=== PATIENT | male | born 1945 | race Caucasian/White ===

== ENCOUNTER 2019-04-11 12:15 | Outpatient (RCR) | payer MEDICARE, SELFPAY ==
[2019-03-08 13:32] LABS: INR 2.8
[2019-04-11 12:47] LABS: INR 2.4; Prothrombin Time 24.9 Seconds (9.64-11.0)
== END 2019-06-06 23:59 | disposition home or self-care (01) ==
LOC: CHSLAB 12:15
DX: I48.91 Unspecified atrial fibrillation (principal)
CPT/HCPCS: 36415; 85610

== ENCOUNTER 2019-09-18 13:45 | Outpatient (RCR) | payer MEDICARE, SELFPAY ==
[2019-08-04 13:01] LABS: INR 2.4; Prothrombin Time 24.5 Seconds (9.64-11.0)
[2019-09-18 14:10] LABS: INR 3.3; Prothrombin Time 32.4 Seconds (9.64-11.0)
== END 2019-11-02 23:59 | disposition home or self-care (01) ==
LOC: CHSLAB 13:45
PROVIDERS: PCP Internal Medicine; Visit Provider Internal Medicine
DX: I48.91 Unspecified atrial fibrillation (principal)
CPT/HCPCS: 36415; 85610

== ENCOUNTER 2019-10-06 09:03 | Outpatient (CLI) | payer MEDICARE, SELFPAY ==
[2019-10-06 09:22] LABS: Basophils Absolute Auto 0.04 K/mm3 (0.00-0.10); Basophils Percent Auto 0.6 % (0.0-1.0); Eosinophils Absolute Auto 0.15 K/mm3 (0.02-0.50); Eosinophils Percent Auto 2.1 % (1.0-6.0); Hematocrit 44.6 % (37.0-46.0); Hemoglobin 15.2 g/dL (12.4-15.3); Immature Granulocyte Absolute 0.02 K/mm3 (0.00-0.00); Immature Granulocyte Percent A 0.3 % (0.0-0.0); Immature Platelet Fraction Pct 6.5 % (1.0-7.0); Lymphocytes Absolute Auto 1.54 K/mm3 (1.10-4.50); Lymphocytes Percent Auto 21.9 % (18.0-42.0); Mean Corpuscular HGB Conc 34.1 g/dL (32.0-36.0); Mean Corpuscular Hemoglobin 33.9 pg (27.0-31.0); Mean Corpuscular Volume 99.3 fL (78.0-102.0); Mean Platelet Volume 11.7 fl (8.7-11.0); Monocytes Absolute Auto 0.65 K/mm3 (0.10-0.90); Monocytes Percent Auto 9.2 % (2.0-11.0); Neutrophils Absolute Auto 4.6 K/mm3 (1.7-7.2); Neutrophils Percent Auto 65.9 % (50.0-70.0); Platelet Count Result 148 K/mm3 (150-420); Red Blood Count 4.49 M/mm3 (4.70-6.10); Red Cell Distribution Width 12.2 % (11.6-14.4)
[2019-10-06 09:31] LABS: INR 2.4; Prothrombin Time 23.8 Seconds (9.64-11.0)
[2019-10-06 10:39] LABS: Alanine Aminotransferase 26 U/L (16-63); Albumin Level 3.7 g/dL (3.4-5.0); Alkaline Phosphatase 99 U/L (46-116); Anion Gap 12.2 mmol/L (7-16); Aspartate Amino Transferase 23 U/L (15-37); Bilirubin,Total 0.8 mg/dL (0.00-1.00); Blood Urea Nitrogen 15 mg/dL (7-18); Calcium 8.6 mg/dL (8.5-10.1); Carbon Dioxide 28 mmol/L (21-32); Chloride 107 mmol/L (98-108); Cholesterol 138 mg/dL (0-200); Estimated Glomerular Filt Rate > 60; Glucose 118 mg/dL (70-99); HDL Direct 50 mg/dL (40-60); LDL Cholesterol Calculated 72 mg/dL (<130); Osmolality Calculated 297 mOsm/kg (285-295); Potassium 4.2 mmol/L (3.5-5.1); Sodium 143 mmol/L (136-145); Thyroid Stimulating Hormone 1.86 uIU/mL (0.36-3.74); Triglycerides 78 mg/dL (0-150)
== END 2019-10-06 09:04 | disposition home or self-care (01) ==
PROVIDERS: PCP Internal Medicine; Visit Provider Internal Medicine
DX: I48.91 Unspecified atrial fibrillation (principal); E78.49 Other hyperlipidemia; R73.03 Prediabetes
CPT/HCPCS: 36415; 80053; 80061; 83036; 84443; 85025; 85055; 85610

== ENCOUNTER 2020-01-15 13:41 | Outpatient (RCR) | payer MEDICARE, SELFPAY ==
[2019-11-15 13:40] LABS: INR 2.6; Prothrombin Time 25.7 Seconds (9.64-11.0)
[2019-12-14 13:52] LABS: INR 2.8; Prothrombin Time 27.8 Seconds (9.64-11.0)
[2020-01-15 14:06] LABS: INR 2.3
== END 2020-02-13 23:59 | disposition home or self-care (01) ==
LOC: CHSLAB 13:41
PROVIDERS: PCP Internal Medicine; Visit Provider Internal Medicine
DX: I48.20 Chronic atrial fibrillation, unspecified (principal)
CPT/HCPCS: 36415; 85610

== ENCOUNTER 2020-04-09 10:42 | Outpatient (CLI) | payer MEDICARE, SELFPAY ==
[2020-04-09 11:00] LABS: Basophils Absolute Auto 0.03 K/mm3 (0.00-0.10); Basophils Percent Auto 0.4 % (0.0-1.0); Eosinophils Absolute Auto 0.22 K/mm3 (0.02-0.50); Eosinophils Percent Auto 3.2 % (1.0-6.0); Hematocrit 43.6 % (37.0-46.0); Hemoglobin 14.6 g/dL (12.4-15.3); Immature Granulocyte Absolute 0.01 K/mm3 (0.00-0.00); Immature Granulocyte Percent A 0.1 % (0.0-0.0); Lymphocytes Absolute Auto 1.66 K/mm3 (1.10-4.50); Lymphocytes Percent Auto 24.4 % (18.0-42.0); Mean Corpuscular HGB Conc 33.5 g/dL (32.0-36.0); Mean Corpuscular Hemoglobin 33.1 pg (27.0-31.0); Mean Corpuscular Volume 98.9 fL (78.0-102.0); Mean Platelet Volume 11.1 fl (8.7-11.0); Monocytes Absolute Auto 0.58 K/mm3 (0.10-0.90); Monocytes Percent Auto 8.5 % (2.0-11.0); Neutrophils Absolute Auto 4.3 K/mm3 (1.7-7.2); Neutrophils Percent Auto 63.4 % (50.0-70.0); Platelet Count Result 143 K/mm3 (150-420); Red Blood Count 4.41 M/mm3 (4.70-6.10); Red Cell Distribution Width 12.1 % (11.6-14.4); White Blood Count 6.8 K/mm3 (4.8-10.8)
[2020-04-09 11:13] LABS: Prothrombin Time 21.4 Seconds (9.50-12.10)
[2020-04-09 11:37] LABS: Hemoglobin A1C 5.6 % (<5.7)
[2020-04-09 12:42] LABS: Alanine Aminotransferase 23 U/L (16-63); Albumin Level 3.8 g/dL (3.4-5.0); Alkaline Phosphatase 99 U/L (46-116); Anion Gap 10 mmol/L (8-16); Aspartate Amino Transferase 16 U/L (15-37); Bilirubin,Total 0.9 mg/dL (0.00-1.00); Blood Urea Nitrogen 18 mg/dL (7-18); Calcium 9.2 mg/dL (8.5-10.1); Carbon Dioxide 24 mmol/L (21-32); Chloride 105 mmol/L (98-108); Cholesterol 150 mg/dL (0-200); Estimated Glomerular Filt Rate > 60; Glucose 119 mg/dL (70-99); HDL Direct 54 mg/dL (40-60); LDL Cholesterol Calculated 79 mg/dL (<130); Osmolality Calculated 290 mOsm/kg (285-295); Potassium 4.1 mmol/L (3.5-5.1); Prostate Specific Antigen 1.4 ng/mL (< OR = 4.0); Sodium 139 mmol/L (136-145); Thyroid Stimulating Hormone 3.18 uIU/mL (0.36-3.74); Total Protein 7.1 g/dL (6.4-8.2); Triglycerides 83 mg/dL (0-150)
== END 2020-04-09 10:43 | disposition home or self-care (01) ==
LOC: CHSLAB 10:44
PROVIDERS: PCP Internal Medicine; Visit Provider Internal Medicine
DX: I48.20 Chronic atrial fibrillation, unspecified (principal); E78.49 Other hyperlipidemia; R73.03 Prediabetes; Z12.5 Encounter for screening for malignant neoplasm of prostate
CPT/HCPCS: 36415; 80053; 80061; 83036; 84153; 84443; 85025; 85610; G0103

== ENCOUNTER 2020-05-21 13:20 | Outpatient (RCR) | payer MEDICARE, SELFPAY ==
[2020-03-07 14:04] LABS: INR 2.5; Prothrombin Time 26.6 Seconds (9.50-12.10)
[2020-05-21 13:45] LABS: Prothrombin Time 20.9 Seconds (9.50-12.10)
== END 2020-06-05 23:59 | disposition home or self-care (01) ==
LOC: CHSLAB 13:20
PROVIDERS: PCP Internal Medicine; Visit Provider Internal Medicine
DX: I48.20 Chronic atrial fibrillation, unspecified (principal)
CPT/HCPCS: 36415; 85610

== ENCOUNTER 2020-09-13 09:46 | Outpatient (RCR) | payer MEDICARE, SELFPAY ==
[2020-06-25 12:23] LABS: INR 2.4; Prothrombin Time 24.7 Seconds (9.50-12.10)
[2020-07-31 13:40] LABS: INR 2.4; Prothrombin Time 24.8 Seconds (9.50-12.10)
[2020-09-13 10:16] LABS: INR 2.2; Prothrombin Time 22.4 Seconds (9.50-12.10)
== END 2020-09-23 23:59 | disposition home or self-care (01) ==
LOC: CHSLAB 09:46
PROVIDERS: PCP Internal Medicine; Visit Provider Internal Medicine
DX: I48.20 Chronic atrial fibrillation, unspecified (principal)
CPT/HCPCS: 36415; 85610

== ENCOUNTER 2020-10-08 10:00 | Outpatient (CLI) | payer MEDICARE, SELFPAY ==
[2020-10-08 10:17] LABS: Basophils Absolute Auto 0.05 K/mm3 (0.00-0.10); Basophils Percent Auto 0.7 % (0.0-1.0); Eosinophils Percent Auto 2.9 % (1.0-6.0); Hematocrit 44.9 % (37.0-46.0); Hemoglobin 15.1 g/dL (12.4-15.3); Immature Granulocyte Absolute 0.02 K/mm3 (0.00-0.00); Immature Granulocyte Percent A 0.3 % (0.0-0.0); Immature Platelet Fraction Pct 6.5 % (1.0-7.0); Lymphocytes Percent Auto 23.6 % (18.0-42.0); Mean Corpuscular HGB Conc 33.6 g/dL (32.0-36.0); Mean Corpuscular Hemoglobin 32.9 pg (27.0-31.0); Mean Corpuscular Volume 97.8 fL (78.0-102.0); Mean Platelet Volume 11.4 fl (8.7-11.0); Monocytes Absolute Auto 0.51 K/mm3 (0.10-0.90); Monocytes Percent Auto 7.5 % (2.0-11.0); Neutrophils Absolute Auto 4.4 K/mm3 (1.7-7.2); Platelet Count Result 146 K/mm3 (150-420); Red Blood Count 4.59 M/mm3 (4.70-6.10); Red Cell Distribution Width 12.4 % (11.6-14.4); White Blood Count 6.8 K/mm3 (4.8-10.8)
[2020-10-08 10:28] LABS: INR 3.1; Prothrombin Time 31.5 Seconds (9.50-12.10)
[2020-10-08 12:15] LABS: Alanine Aminotransferase 28 U/L (16-63); Albumin Level 3.8 g/dL (3.4-5.0); Alkaline Phosphatase 101 U/L (46-116); Anion Gap 11 mmol/L (8-16); Aspartate Amino Transferase 19 U/L (15-37); Bilirubin,Total 0.9 mg/dL (0.00-1.00); Blood Urea Nitrogen 17 mg/dL (7-18); Calcium 8.8 mg/dL (8.5-10.1); Carbon Dioxide 26 mmol/L (21-32); Chloride 107 mmol/L (98-108); Cholesterol 142 mg/dL (0-200); Estimated Glomerular Filt Rate > 60; Glucose 124 mg/dL (70-99); HDL Direct 50 mg/dL (40-60); LDL Cholesterol Calculated 71 mg/dL (<130); Osmolality Calculated 300 mOsm/kg (285-295); Potassium 4.3 mmol/L (3.5-5.1); Sodium 144 mmol/L (136-145); Thyroid Stimulating Hormone 0.88 uIU/mL (0.36-3.74); Total Protein 6.9 g/dL (6.4-8.2); Triglycerides 106 mg/dL (0-150); Vitamin B12 479 pg/mL (193-986)
== END 2020-10-08 10:01 | disposition home or self-care (01) ==
LOC: CHSLAB 10:02
PROVIDERS: PCP Internal Medicine; Visit Provider Internal Medicine
DX: I48.20 Chronic atrial fibrillation, unspecified (principal); E78.49 Other hyperlipidemia; E03.8 Other specified hypothyroidism
CPT/HCPCS: 36415; 80053; 80061; 82607; 84443; 85025; 85055; 85610

== ENCOUNTER 2021-01-21 13:32 | Outpatient (RCR) | payer MEDICARE, SELFPAY ==
[2020-11-08 13:39] LABS: INR 1.8
[2020-11-27 12:19] LABS: INR 2.9; Prothrombin Time 29.5 Seconds (9.50-12.10)
[2021-01-21 13:56] LABS: INR 2.2; Prothrombin Time 22.4 Seconds (9.50-12.10)
== END 2021-02-06 23:59 | disposition home or self-care (01) ==
LOC: CHSLAB 13:32
PROVIDERS: PCP Internal Medicine; Visit Provider Internal Medicine
DX: I48.20 Chronic atrial fibrillation, unspecified (principal)
CPT/HCPCS: 36415; 85610

== ENCOUNTER 2021-03-06 10:38 | Outpatient (RCR) | payer MEDICARE, SELFPAY ==
[2021-03-06 11:04] LABS: INR 2.9; Prothrombin Time 29.4 Seconds (9.50-12.10)
== END 2021-06-04 23:59 | disposition home or self-care (01) ==
LOC: CHSLAB 10:38
PROVIDERS: PCP Internal Medicine; Visit Provider Internal Medicine
DX: I48.20 Chronic atrial fibrillation, unspecified (principal)
CPT/HCPCS: 36415; 85610

== ENCOUNTER 2021-04-24 23:37 | Emergency (ER) | payer MEDICARE, SELFPAY ==
--- NOTE | ~2021-04-24 | CT_ITS ---
EXAMINATION: CT brain wo con EXAM DATE: 04/25/2021 02:37 INDICATION: Fall. Head Injury On Coumadin. TECHNIQUE: Spiral CT of the head was performed without contrast. Axial, coronal and sagittal images were reviewed. The dose-length product (DLP) for this examination was 756.67 mGy-cm. The exposure w as tailored according to patient size, and iterative reconstruction (ASIR) was used as additional dos e reduction technique. There is no prior study for comparison. FINDINGS: There is no acute intraparenchymal hemorrhage. No evidence of intraparenchymal brain mass lesion. No evidence of acute infarction. Please note that initial head CT has limited sensitivity f or small or acute infarctions. There is mild periventricular and subcortical hypodensity, nonspecific but probably related to small vessel ischemic disease. There is moderate prominence of the sulci a nd ventricles related to cerebral atrophy. There is intracranial carotid arteriosclerosis. There a re no extra-axial collections. There is no mass effect or midline shift. The orbits are unremarkabl e. Small to moderate-sized left posterior scalp swelling. The visualized sinuses and mastoid air fely ls are well aerated. IMPRESSION: 1. No acute intracranial findings. 2. Chronic age related findings. 3. Left posterior scalp swelling. Reviewed, dictated and finalized at location A. CH CHECKER
--- NOTE | ~2021-04-24 | CT_ITS ---
EXAMINATION: CT chest abdomen pelvis wo con EXAM DATE: 04/25/2021 02:38 INDICATION: back and left side chest wall pain s/pfall stairs. TECHNIQUE: Spiral CT of the chest, abdomen and pelvis was performed without contrast. Axial, galdamez l and sagittal images chest, abdomen and pelvis were reviewed. Coronal maximum intensity pixel image s of chest reviewed. The dose-length product (DLP) for this examination was 1943.41 mGy-cm. The exp osure was tailored according to patient size (auto mA exposure control), and iterative reconstruction (ASIR) was used as additional dose reduction technique. There is no prior study for comparison. FINDINGS: BONES: Patient has diffuse idiopathic skeletal hyperostosis, fused mid and lower thoracic spine. Ther e is fracture line through the T9 anterior enthesopathy and vertebral body. This extends toward the p osterior cortex although no discrete fracture line identified through this. Consider this unstable ty pe injury given patient's fused spine. Small paraspinal hematoma. T9 may have sizable hemangioma with in it. Possible acute left 7th rib fracture laterally. There is severe central canal stenosis at L2-3 from posterior disc osteophyte complex and facet arthropathy. Partially fused sacroiliac joints. No pelvic fracture. There are no osteoblastic or osteolytic lesions identified. CHEST: The lungs are clear. There are no pleural or pericardial effusions. Tracheobronchial tree is patent. There is no mediastinal, hilar or axillary lymphadenopathy. There is no pneumothorax. Heart normal in size. There is mild coronary arterial calcification, arterial sclerosis. ABDOMEN PELVIS: The liver, spleen, adrenal glands and pancreas are unremarkable. Gallbladder is unre markable. No biliary obstruction. There is 2.5 mm left inferior calyceal stone. No ureteral stones or hydronephrosis. 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 The prostate is unremarkable. T he bladder is unremarkable. There is no retroperitoneal or pelvic lymphadenopathy. There are left inguinal region surgical clips. There is moderate-sized left inguinal hernia containing fat and tenti ng the bladder toward at. There are no findings to suggest appendicitis. There is mild scattered colonic diverticulosis. There is no adjacent inflammatory change to suggest diverticulitis. The stomach and small bowel are unrema rkable. There is expected amount of colonic stool. No free intraperitoneal gas. IMPRESSION: 1. DISH, fused middle and lower thoracic spine with T9 vertebral body fracture extending toward the posterior cortex, middle column. Unstable type injury; recommend neurosurgical consult. 2. Possible acute left 7th rib fracture. 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 4. Mild colonic diverticulosis. Reviewed, dictated and finalized at location A. ERCIAL CRABBER IMPRESSION: 1. DISH, fused middle and lower thoracic spine with T9 vertebral body fracture extending toward the posterior cortex, middle column. Unstable type injury; re commend neurosurgical consult. 2. Possible acute left 7th rib fracture. 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 4. Mild colonic diverticulosis.
--- NOTE | ~2021-04-24 | XR_ITS ---
EXAMINATION: XR knee RT 3V DATE: 04/25/2021 02:42 INDICATION: Right knee pain. Fall. TECHNIQUE: 3 views of right knee were obtained. COMPARISON: None. FINDINGS: Bone alignment is normal. No fracture. There is mild tricompartmental osteoarthritis charac terized by tiny osteophytes. No joint space narrowing. There is a small knee joint effusion. IMPRESSION: 1. Mild right knee osteoarthritis. 2. Small right knee joint effusion. Reviewed, dictated and finalized at location A. BUCKER
--- NOTE | ~2021-04-24 | CT_ITS ---
EXAMINATION: CT cervical spine wo con EXAM DATE: 04/25/2021 02:38 INDICATION: Fall. Neck Pain. TECHNIQUE: Spiral CT of the cervical spine was performed without contrast. Axial images were reviewe d. Coronal and sagittal reformatted images cervical spine were also reviewed. The dose-length produc t (DLP) for this examination was 626.57 mGy-cm. The exposure was tailored according to patient size (auto mA exposure control), and iterative reconstruction (ASIR) was used as additional dose reduction technique. There is no prior study for comparison. FINDINGS: There is no evidence of acute cervical fracture. The odontoid process is intact. Pre-dens space is normal. Prevertebral soft tissue is normal. There are no soft tissue abnormalities identi fied. There is no disc space widening or traumatic vertebral body subluxation suspected. Mild to mo derate cervical disc disease. Advanced right-sided cervical facet arthropathy. A detailed level by guerrero bhat evaluation of spondylosis can be added as addendum if requested. IMPRESSION: No acute cervical fracture. Reviewed, dictated and finalized at location A. NG FISHER IMPRESSION: No acute cervical fracture.
[2021-04-24 23:44] VITALS: BP 154/81; PULSE 98; RESP 18; TEMP 36.1; O2SAT 100
[2021-04-25 01:40] VITALS: BP 153/96; PULSE 88; RESP 18; O2SAT 99
--- NOTE | 2021-04-25 03:13 | ED.GENADULT ---
HPI - General Adult General Chief complaint: Fall Stated complaint: fall down 2 stairs, right knee pain, head pain Time Seen by Provider: 04/25/21 01:50 History of Present Illness HPI narrative: Patient is a 76-year-old gentleman who presents the emergency department with chief complaint of fall. Patient reports that he is on Coumadin and was walking down the steps and missed the last 2 steps fell struck his head and also twisted his knee. Patient reports that he had swelling in the dorsum of his knee that then moved to the left the patient reports that he has pain in the left portion of his chest and the back also reports to a contusion of the back of his scalp. The patient came to the emergency department because he was concerned since he is on anticoagulation. The patient reports that he has no change in his mental status no focal neurological deficit Related Data Allergies Allergy/AdvReac Type Severity Reaction Status Date / Time shellfish derived Allergy Anaphylactic Verified 04/25/21 01:41 Shock Review of Systems Review of Systems: A 10 system review of systems was completed on the patient and is negative except for what is stated in the HPI. Nursing and ancillary documentation was reviewed. PMFSH Comments History of atrial fibrillation Exam Narrative: GENERAL: Well-appearing, well-nourished, and in no acute distress. HEAD: Normocephalic, there is a contusion in the occipital region of the scalp. EYES: PERRLA and EOMI. ENT: Nares clear, no rhinorrhea or epistaxis. Mucous membranes moist. NECK: Supple. CHEST: Clear to auscultation. No respiratory distress. HEART: Regular rate and rhythm. No murmur heard. Normal peripheral pulses. ABDOMEN: Soft, nontender, nondistended, normal active bowel sounds. EXTREMITIES: Normal range of motion. No edema. There is swelling on the medial aspect of the right knee SKIN: Warm, dry, no rash. NEURO: No focal deficits. Alert and oriented x3. PSYCH: Normal mood and affect. Course Course Emergency Course: Plain film x-rays of the right knee showed no evidence of fracture Vital Signs Vital signs: Vital Signs Temperature 36.1 C L 04/24/21 23:44 Pulse Rate 98 04/24/21 23:44 Respiratory Rate 18 04/24/21 23:44 Blood Pressure 154/81 H 04/24/21 23:44 Pulse Oximetry 100 04/24/21 23:44 Temperature 36.1 C L 04/24/21 23:44 Pulse Rate 62 04/25/21 03:26 Respiratory Rate 18 04/25/21 03:26 Blood Pressure 144/98 H 04/25/21 03:26 Pulse Oximetry 98 04/25/21 03:26 Medical Decision Making Vital Signs Vital Signs: Vital Signs Temperature 36.1 C L 04/24/21 23:44 Pulse Rate 98 04/24/21 23:44 Respiratory Rate 18 04/24/21 23:44 Blood Pressure 154/81 H 04/24/21 23:44 Pulse Oximetry 100 04/24/21 23:44 Temperature 36.1 C L 04/24/21 23:44 Pulse Rate 62 04/25/21 03:26 Respiratory Rate 18 04/25/21 03:26 Blood Pressure 144/98 H 04/25/21 03:26 Pulse Oximetry 98 04/25/21 03:26 Discharge Plan Discharge Clinical Impression: Closed T9 spinal fracture, Injury of knee, right, Head injury, Contusion of scalp Patient Disposition: Acute Care Hospital Condition: Stable Follow-up/Referrals: Doug,Arsh Ames MD [Primary Care Provider] - Time of Disposition: 03:38
[2021-04-25 03:26] VITALS: BP 144/98; PULSE 62; RESP 18; O2SAT 98
[2021-04-25] MEDS: MORPHINE SULFATE (*CRX) 4 MG/ML INJ IV PUSH ×2 (03:33→08:34)
[2021-04-25] MEDS: ONDANSETRON INJ 4 MG/2 ML VIAL IV PUSH (03:33)
[2021-04-25 03:55] LABS: Basophils Percent Auto 0.2 % (0.2-1.2); Eosinophils Percent Auto 0.1 % (0-4.4); Hematocrit 41.4 % (42.0-52.0); Hemoglobin 13.9 g/dL (14.0-18.0); Immature Granulocyte Absolute 0.06 K/mm3 (0.00-0.031); Immature Granulocyte Percent A 0.5 % (0-0.5); Immature Platelet Fraction Pct 8.7 % (0.9-11.2); Lymphocytes Percent Auto 5.6 % (18.3-44.2); Mean Corpuscular HGB Conc 33.6 g/dl (32-36); Mean Corpuscular Hemoglobin 33.6 pg (26-34); Mean Platelet Volume 11.5 fl (7.4-10.4); Monocytes Absolute Auto 1.4 K/mm3 (0.1-0.6); Monocytes Percent Auto 11.4 % (2.6-8.5); Neutrophils Absolute Auto 10.2 K/mm3 (1.3-6.7); Neutrophils Percent Auto 82.2 % (45.5-73.1); Platelet Count Result 126 k/mm3 (150-375); Red Blood Count 4.14 M/mm3 (4.6-6.20); Red Cell Distribution Width 12.7 % (11.5-14.5); White Blood Count 12.4 K/mm3 (4.5-10.0)
[2021-04-25 04:00] LABS: INR 2.8
[2021-04-25 04:01] LABS: Partial Thromboplastin Time 31.7 SECONDS (22.3-36.8)
[2021-04-25 04:07] LABS: Alanine Aminotransferase 27 U/L (4-50); Alkaline Phosphatase 97 U/L (38-126); Anion Gap 7 mmol/L (8-16); Aspartate Amino Transferase 33 U/L (17-59); Bilirubin,Total 0.8 mg/dL (0.2-1.3); Blood Urea Nitrogen 21 mg/dL (9-20); Carbon Dioxide 24 mmol/L (22-30); Chloride 108 mmol/L (98-107); Estimated CRCL calculation 78 ml/min; Estimated Glomerular Filt Rate > 60; Glucose 140 mg/dL (65-110); Potassium 3.9 mmol/L (3.4-5.0); Sodium 139 mmol/L (137-145)
--- NOTE | 2021-04-25 04:09 | PC.NURSE ---
Nurse to nurse report called to [facility]) - spoke to Iris TIRADO.
[2021-04-25 04:35] VITALS: BP 105/78; PULSE 91; RESP 17; O2SAT 95
[2021-04-25 05:30] VITALS: BP 115/77; PULSE 93; RESP 18; O2SAT 96
[2021-04-25 06:54] VITALS: BP 114/79; PULSE 76; RESP 14; O2SAT 94
--- NOTE | 2021-04-25 08:31 | PC.NURSE ---
john has arrived and is aware that pt is going to [facility]
[2021-04-25 08:45] VITALS: BP 118/79; PULSE 86; RESP 16; O2SAT 98
== END 2021-04-25 08:45 | disposition short-term general hospital (02) ==
PROVIDERS: Emergency Provider Emergency Medicine; PCP Internal Medicine
DX: S22.079A Unspecified fracture of T9-T10 vertebra, initial encounter for closed fracture (principal); S89.91XA Unspecified injury of right lower leg, initial encounter; S00.03XA Contusion of scalp, initial encounter; I48.91 Unspecified atrial fibrillation; W10.9XXA Fall (on) (from) unspecified stairs and steps, initial encounter; Z79.01 Long term (current) use of anticoagulants
CPT/HCPCS: 36415; 70450; 71250; 72125; 73562; 74176; 80053; 85025; 85055; 85610; 85730; 96374; 96375; 96376; 99285; J2270; J2405

== ENCOUNTER 2021-05-07 18:18 | Inpatient (IN) | payer MEDICARE, SELFPAY ==
[2021-05-07 18:57] VITALS: BP 128/89; PULSE 90; RESP 18; TEMP 36.3; O2SAT 95
[2021-05-07 19:28] VITALS: BMI 32.6
--- NOTE | 2021-05-07 20:12 | ADMGEN ---
This patient, Yang Young, was admitted to 2nd Floor Room 205-2. Patient oriented to hospital policies and general routines including ID bracelet, bed and alarms, visiting hours, pain management, procedures, bathroom and other care routines, personal items, smoking policy, room service/diet, and visiting hours. Information on how to activate the Rapid Response Team has been discussed. Patient are encouraged to report perceived risks to care and to ask questions if they do not understand what they are told or what they should do.
[2021-05-07] MEDS: QUEtiapine FUMARATE 25 MG TABLET PO (21:36)
[2021-05-07] MEDS: SENNOSIDES 8.6 MG TABLET PO (21:36)
[2021-05-07] MEDS: DOCUSATE SODIUM 100 MG CAPSULE PO (21:36)
[2021-05-07] MEDS: MELATONIN 5 MG TABLET PO (21:36)
[2021-05-07] MEDS: ENOXAPARIN 30 MG/0.3 ML SYRINGE SUB-Q (21:37)
[2021-05-08] VITALS: BP 126/86; PULSE 90; RESP 18; TEMP 36.3; O2SAT 98
[2021-05-08] MEDS: ACETAMINOPHEN 325 MG TABLET PO (00:26)
[2021-05-08 05:18] LABS: Mean Corpuscular HGB Conc 32.4 g/dL (32.0-36.0); Mean Corpuscular Hemoglobin 33.5 pg (27.0-31.0); Mean Corpuscular Volume 103.4 fL (78.0-102.0); Mean Platelet Volume 10.3 fl (8.7-11.0); Platelet Count Result 303 K/mm3 (150-420); Red Blood Count 3.58 M/mm3 (4.70-6.10); Red Cell Distribution Width 13.2 % (11.6-14.4)
[2021-05-08 05:37] LABS: Alanine Aminotransferase 52 U/L (16-63); Albumin Level 2.7 g/dL (3.4-5.0); Alkaline Phosphatase 123 U/L (46-116); Anion Gap 9 mmol/L (8-16); Aspartate Amino Transferase 28 U/L (15-37); Bilirubin,Total 1.2 mg/dL (0.00-1.00); Blood Urea Nitrogen 9 mg/dL (7-18); Calcium 8.4 mg/dL (8.5-10.1); Carbon Dioxide 28 mmol/L (21-32); Chloride 101 mmol/L (98-108); Estimated CRCL calculation 80 ml/min; Estimated Glomerular Filt Rate > 60; Glucose 110 mg/dL (70-99); Magnesium 2.2 mg/dL (1.8-2.4); Osmolality Calculated 285 mOsm/kg (285-295); Potassium 4.1 mmol/L (3.5-5.1); Sodium 138 mmol/L (136-145)
[2021-05-08] MEDS: LEVOTHYROXINE SODIUM 100 MCG, LEVOTHYROXINE SODIUM 50 MCG 150 MCG PO (05:44)
[2021-05-08 07:49] LABS: Glucose Point of Care 98 mg/dl (65-105)
[2021-05-08 08:00] VITALS: BP 132/78; PULSE 102; RESP 20; TEMP 36.2; O2SAT 94
[2021-05-08] MEDS: ENOXAPARIN 30 MG/0.3 ML SYRINGE SUB-Q ×2 (08:31→20:40)
[2021-05-08] MEDS: DOCUSATE SODIUM 100 MG CAPSULE PO ×2 (08:31→20:40)
[2021-05-08] MEDS: MULTIVITAMINS THERAPEUTIC TAB (*BKC) 1 TABLET PO (08:31)
[2021-05-08 08:32] VITALS: PULSE 102
[2021-05-08] MEDS: FINASTERIDE 5 MG TABLET PO (08:32)
[2021-05-08] MEDS: METOPROLOL TARTRATE 50 MG TAB PO ×3 (08:32→17:25)
[2021-05-08] MEDS: metFORMIN HCL 500 MG TABLET PO (08:33)
[2021-05-08] MEDS: SIMVASTATIN 10 MG TABLET 40 MG PO (09:27)
[2021-05-08] MEDS: polyethylene glycoL 3350 17 GM POWD.PACK PO ×2 (09:27→17:26)
[2021-05-08] MEDS: CYCLOBENZAPRINE HCL 10 MG TABLET PO ×3 (09:29→17:26)
--- NOTE | 2021-05-08 11:03 | PM.IMHP ---
H&P: HPI History of Present Illness Date/Time: 05/08/21 11:03 this is a 76-year-old male who presented to [facility] emergency trauma department from [facility] after a fall down the stairs at home. Patient has a past medical history of A. fib, HLD, hypothyroidism, and bph. Patient missed 2 steps and fell and struck his head and twisted his knee imaging indicated a unstable T9 fracture CT of the head was negative .patient admitted in swing bed for rehabilitation due to decreased balance decreased mobility in severe limited function endurant and/or mobility. The patient denies SOB, CP, palpitation, extremity numbness, lightheadedness, dizziness, constipation, diarrhea, chills, or fever. Chief Complaint: rehab Review of Systems Review of Systems: All systems reviewed & are unremarkable except as noted in HPI and below PMFSH Past Medical History Medical History (Updated 05/08/21 @ 12:[address]) Afib BPH (benign prostatic hyperplasia) Cardiac dysrhythmia Chronic ischemic heart disease Diverticula of colon Fracture of thoracic spine HLD (hyperlipidemia) Hypothyroidism Malignant melanoma neck Surgical History Surgical History (Updated 05/08/21 @ 12:[address]) H/O hernia repair History of tonsillectomy Family History Family History (Updated 05/08/21 @ 12:[address]) Father Pancreatic cancer Cancer Social History Social History Smoking packs per day: 1 Smoking cigarettes per day: 20.0 Smoking status: Former smoker Tobacco type: cigarettes Second hand tobacco smoke exposure: No Smoking end date: 03/29/76 Alcohol intake: current Drinks per week: 5 Substance use: never Spiritual care concerns: No Meds Home Medications and Allergies Home Medications Medication Instructions Recorded Confirmed Type acetaminophen 650 mg PO Q6H PRN 05/08/21 05/08/21 History bisacodyl 10 mg RECTAL DAILY PRN 05/08/21 05/08/21 History cyanocobalamin (vitamin B-12) 1,000 mcg MONTHLY 05/08/21 05/08/21 History cyclobenzaprine [Flexeril] 10 mg PO TID 05/08/21 05/08/21 History docusate sodium 100 mg PO BID 05/08/21 05/08/21 History enoxaparin 30 mg SUBCUT Q12H 05/08/21 05/08/21 History ergocalciferol (vitamin D2) 50,000 unit PO WEEKLY 05/08/21 05/08/21 History finasteride [Proscar] 5 mg PO DAILY 05/08/21 05/08/21 History levothyroxine [Synthroid] 150 mcg PO DAILY 05/08/21 05/08/21 History melatonin 5 mg PO HS PRN 05/08/21 05/08/21 History metformin 500 mg PO DAILY 05/08/21 05/08/21 History metoprolol succinate 50 mg PO DAILY 05/08/21 05/08/21 History metoprolol tartrate 50 mg PO TID 05/08/21 05/08/21 History multivitamin [Daily Multivitamin] 1 tablet PO DAILY 05/08/21 05/08/21 History oxycodone 5 mg PO Q4H PRN 05/08/21 05/08/21 History polyethylene glycol 3350 17 g PO BID 05/08/21 05/08/21 History quetiapine 25 mg PO HS 05/08/21 05/08/21 History sennosides [Senokot] 8.6 mg PO DAILY 05/08/21 05/08/21 History simvastatin [Zocor] 40 mg PO DAILY 05/08/21 05/08/21 History warfarin [Coumadin] 2.5 mg PO DAILY 05/08/21 05/08/21 History warfarin [Coumadin] 3 mg PO DAILY 05/08/21 05/08/21 History Allergies Allergy/AdvReac Type Severity Reaction Status Date / Time iodine Allergy Unknown Verified 05/07/21 20:39 shellfish derived Allergy Anaphylactic Verified 04/25/21 01:41 Shock morphine AdvReac Vomiting Verified 05/07/21 20:40 Vital Signs Vital Signs - 24 hr 05/07/21 18:57 05/08/21 00:00 05/08/21 08:00 Temperature 97.4 F L 97.4 F L 97.2 F L Pulse Rate 90 90 102 H Respiratory Rate 18 18 20 Blood Pressure 128/89 126/86 132/78 Pulse Oximetry 95 98 94 05/08/21 08:32 Temperature Pulse Rate 102 H Respiratory Rate Blood Pressure Pulse Oximetry Exam Narrative: GENERAL: This is a well-nourished, well-developed patient, in no apparent distress. HEAD: normocephalic, atraumatic.
[2021-05-08 11:38] LABS: Glucose Point of Care 111 mg/dl (65-105)
[2021-05-08 12:54] VITALS: PULSE 88
[2021-05-08 15:36] VITALS: BP 116/87; PULSE 90; RESP 18; TEMP 36.8; O2SAT 94
[2021-05-08 17:11] LABS: Glucose Point of Care 105 mg/dl (65-105)
[2021-05-08 17:25] VITALS: PULSE 88
[2021-05-08 20:37] LABS: Glucose Point of Care 109 mg/dl (65-105)
[2021-05-08] MEDS: SENNOSIDES 8.6 MG TABLET PO (20:40)
[2021-05-08] MEDS: QUEtiapine FUMARATE 25 MG TABLET PO (20:40)
[2021-05-08] MEDS: MELATONIN 5 MG TABLET PO (20:40)
[2021-05-09] VITALS: BP 118/84; PULSE 84; RESP 20; TEMP 36.1; O2SAT 94
[2021-05-09] MEDS: LEVOTHYROXINE SODIUM 100 MCG, LEVOTHYROXINE SODIUM 50 MCG 150 MCG PO (06:29)
[2021-05-09 08:00] VITALS: BP 128/90; PULSE 82; RESP 20; TEMP 36.4; O2SAT 95
[2021-05-09 08:07] LABS: Glucose Point of Care 113 mg/dl (65-105)
[2021-05-09] MEDS: metFORMIN HCL 500 MG TABLET PO (09:14)
[2021-05-09] MEDS: SIMVASTATIN 10 MG TABLET 40 MG PO (09:15)
[2021-05-09 09:16] VITALS: PULSE 84
[2021-05-09] MEDS: CYCLOBENZAPRINE HCL 10 MG TABLET PO ×3 (09:16→17:00)
[2021-05-09] MEDS: MULTIVITAMINS THERAPEUTIC TAB (*BKC) 1 TABLET PO (09:16)
[2021-05-09] MEDS: METOPROLOL TARTRATE 50 MG TAB PO ×3 (09:16→17:00)
[2021-05-09] MEDS: FINASTERIDE 5 MG TABLET PO (09:16)
[2021-05-09] MEDS: ENOXAPARIN 30 MG/0.3 ML SYRINGE SUB-Q ×2 (09:17→21:13)
[2021-05-09 12:04] LABS: Glucose Point of Care 111 mg/dl (65-105)
[2021-05-09 12:32] VITALS: PULSE 86
[2021-05-09 16:00] VITALS: BP 138/88; PULSE 98; RESP 20; TEMP 36.6; O2SAT 95
[2021-05-09 17:11] LABS: Glucose Point of Care 86 mg/dl (65-105)
[2021-05-09] MEDS: QUEtiapine FUMARATE 25 MG TABLET PO (21:14)
[2021-05-09] MEDS: MELATONIN 5 MG TABLET PO (21:14)
[2021-05-09 21:27] LABS: Glucose Point of Care 100 mg/dl (65-105)
[2021-05-09 23:42] VITALS: BP 112/79; PULSE 86; RESP 17; TEMP 37; O2SAT 97
[2021-05-10] MEDS: LEVOTHYROXINE SODIUM 100 MCG, LEVOTHYROXINE SODIUM 50 MCG 150 MCG PO (06:41)
[2021-05-10 08:00] VITALS: BP 118/79; PULSE 85; RESP 16; TEMP 36.4; O2SAT 97
[2021-05-10 08:00] LABS: Glucose Point of Care 85 mg/dl (65-105)
[2021-05-10] MEDS: ENOXAPARIN 30 MG/0.3 ML SYRINGE SUB-Q ×2 (09:26→21:33)
[2021-05-10] MEDS: SIMVASTATIN 10 MG TABLET 40 MG PO (09:26)
[2021-05-10] MEDS: polyethylene glycoL 3350 17 GM POWD.PACK PO (09:26)
[2021-05-10 09:27] VITALS: PULSE 85
[2021-05-10] MEDS: CYCLOBENZAPRINE HCL 10 MG TABLET PO ×3 (09:27→18:22)
[2021-05-10] MEDS: MULTIVITAMINS THERAPEUTIC TAB (*BKC) 1 TABLET PO (09:27)
[2021-05-10] MEDS: metFORMIN HCL 500 MG TABLET PO (09:27)
[2021-05-10] MEDS: FINASTERIDE 5 MG TABLET PO (09:27)
[2021-05-10] MEDS: DOCUSATE SODIUM 100 MG CAPSULE PO ×2 (09:27→21:32)
[2021-05-10] MEDS: METOPROLOL TARTRATE 50 MG TAB PO ×3 (09:27→18:21)
[2021-05-10 12:06] LABS: Glucose Point of Care 118 mg/dl (65-105)
[2021-05-10 13:36] VITALS: PULSE 88
[2021-05-10 16:00] VITALS: BP 139/80; PULSE 68; RESP 18; TEMP 36.6; O2SAT 97
[2021-05-10 17:02] LABS: Glucose Point of Care 95 mg/dl (65-105)
[2021-05-10 18:21] VITALS: PULSE 68
[2021-05-10 21:18] LABS: Glucose Point of Care 95 mg/dl (65-105)
[2021-05-10] MEDS: QUEtiapine FUMARATE 25 MG TABLET PO (21:33)
[2021-05-10] MEDS: MELATONIN 5 MG TABLET PO (21:33)
[2021-05-10 23:45] VITALS: BP 117/81; PULSE 93; RESP 16; TEMP 36.5; O2SAT 96
[2021-05-11] MEDS: LEVOTHYROXINE SODIUM 100 MCG, LEVOTHYROXINE SODIUM 50 MCG 150 MCG PO (06:12)
[2021-05-11 08:00] VITALS: BP 125/86; PULSE 81; RESP 16; TEMP 36.3; O2SAT 96
[2021-05-11] MEDS: ENOXAPARIN 30 MG/0.3 ML SYRINGE SUB-Q ×2 (09:23→22:05)
[2021-05-11] MEDS: FINASTERIDE 5 MG TABLET PO (09:23)
[2021-05-11] MEDS: CYCLOBENZAPRINE HCL 10 MG TABLET PO ×3 (09:23→17:00)
[2021-05-11] MEDS: DOCUSATE SODIUM 100 MG CAPSULE PO ×2 (09:23→22:04)
[2021-05-11] MEDS: polyethylene glycoL 3350 17 GM POWD.PACK PO (09:23)
[2021-05-11 09:24] VITALS: PULSE 80
[2021-05-11] MEDS: METOPROLOL TARTRATE 50 MG TAB PO ×3 (09:24→17:00)
[2021-05-11] MEDS: MULTIVITAMINS THERAPEUTIC TAB (*BKC) 1 TABLET PO (09:24)
[2021-05-11] MEDS: SIMVASTATIN 10 MG TABLET 40 MG PO (09:24)
[2021-05-11] MEDS: metFORMIN HCL 500 MG TABLET PO (09:24)
[2021-05-11 13:38] VITALS: PULSE 77
[2021-05-11 16:00] VITALS: BP 113/88; PULSE 99; RESP 16; TEMP 36.6; O2SAT 96
[2021-05-11 17:00] VITALS: PULSE 77
[2021-05-11] MEDS: MELATONIN 5 MG TABLET PO (22:03)
[2021-05-11] MEDS: SENNOSIDES 8.6 MG TABLET PO (22:04)
[2021-05-11] MEDS: QUEtiapine FUMARATE 25 MG TABLET PO (22:04)
[2021-05-11 23:15] VITALS: BP 123/81; PULSE 82; RESP 18; TEMP 37.1; O2SAT 97
[2021-05-12] MEDS: LEVOTHYROXINE SODIUM 100 MCG, LEVOTHYROXINE SODIUM 50 MCG 150 MCG PO (06:28)
[2021-05-12 08:00] VITALS: BP 137/71; PULSE 76; RESP 14; TEMP 36.6; O2SAT 93
[2021-05-12 08:17] LABS: Glucose Point of Care 113 mg/dl (65-105)
[2021-05-12] MEDS: metFORMIN HCL 500 MG TABLET PO (08:27)
[2021-05-12] MEDS: ENOXAPARIN 30 MG/0.3 ML SYRINGE SUB-Q ×2 (09:27→21:06)
[2021-05-12] MEDS: polyethylene glycoL 3350 17 GM POWD.PACK PO ×2 (09:27→17:44)
[2021-05-12] MEDS: CYCLOBENZAPRINE HCL 10 MG TABLET PO ×3 (09:27→17:44)
[2021-05-12 09:28] VITALS: PULSE 78
[2021-05-12] MEDS: SIMVASTATIN 10 MG TABLET 40 MG PO (09:28)
[2021-05-12] MEDS: METOPROLOL TARTRATE 50 MG TAB PO ×3 (09:28→17:44)
[2021-05-12] MEDS: FINASTERIDE 5 MG TABLET PO (09:29)
[2021-05-12] MEDS: DOCUSATE SODIUM 100 MG CAPSULE PO ×2 (09:29→21:06)
[2021-05-12] MEDS: MULTIVITAMINS THERAPEUTIC TAB (*BKC) 1 TABLET PO (09:29)
[2021-05-12 12:45] VITALS: PULSE 80
[2021-05-12 16:00] VITALS: BP 109/74; PULSE 84; RESP 18; TEMP 36.3; O2SAT 97
[2021-05-12 17:44] VITALS: PULSE 86
[2021-05-12] MEDS: MELATONIN 5 MG TABLET PO (21:07)
[2021-05-12] MEDS: SENNOSIDES 8.6 MG TABLET PO (21:07)
[2021-05-12] MEDS: QUEtiapine FUMARATE 25 MG TABLET PO (21:07)
[2021-05-13] VITALS: BP 122/69; PULSE 91; RESP 16; TEMP 36.7; O2SAT 98
[2021-05-13] MEDS: LEVOTHYROXINE SODIUM 100 MCG, LEVOTHYROXINE SODIUM 50 MCG 150 MCG PO (05:47)
[2021-05-13 08:00] VITALS: BP 120/86; PULSE 98; RESP 20; TEMP 36.9; O2SAT 96
--- NOTE | 2021-05-13 08:00 | PM.EVENT ---
Event Note Event Note Event Note: Albumin low area supplement drink with each meal
[2021-05-13 08:07] LABS: Glucose Point of Care 100 mg/dl (65-105)
--- NOTE | 2021-05-13 08:07 | PM.EVENT ---
Event Note Event Note Event Note: Patient requires a wheeled walker to perform ADLs in the home due to thoracic fractures. Patient is not able to perform ADLs using a cane. Functional mobility deficiency will be sufficiently resolved by using walker patient is able to safely use walker and agrees to use walker.
--- NOTE | 2021-05-13 08:35 | PCPTNOTE ---
05/09/21-pt not seen in the pm visit due to inadvertently omitted. Resume on Wednesday for weekend session
[2021-05-13] MEDS: metFORMIN HCL 500 MG TABLET PO (08:56)
[2021-05-13] MEDS: CYCLOBENZAPRINE HCL 10 MG TABLET PO ×3 (08:56→16:44)
[2021-05-13 08:57] VITALS: PULSE 88
[2021-05-13] MEDS: MULTIVITAMINS THERAPEUTIC TAB (*BKC) 1 TABLET PO (08:57)
[2021-05-13] MEDS: SIMVASTATIN 10 MG TABLET 40 MG PO (08:57)
[2021-05-13] MEDS: DOCUSATE SODIUM 100 MG CAPSULE PO ×2 (08:57→21:24)
[2021-05-13] MEDS: METOPROLOL TARTRATE 50 MG TAB PO ×3 (08:57→16:45)
[2021-05-13] MEDS: FINASTERIDE 5 MG TABLET PO (08:57)
[2021-05-13] MEDS: ENOXAPARIN 30 MG/0.3 ML SYRINGE SUB-Q ×2 (08:58→21:24)
--- NOTE | 2021-05-13 12:15 | PM.EVENT ---
Event Note Event Note Event Note: Patient will discharge on 05/20 he will discharge home with Lovenox 30 mg every 12 hours x3 days and resume his warfarin on 05/24 per surgeon's orders.
[2021-05-13 12:45] VITALS: PULSE 82
[2021-05-13 16:00] VITALS: BP 134/74; PULSE 88; RESP 20; TEMP 36.6; O2SAT 96
[2021-05-13] MEDS: ACETAMINOPHEN 325 MG TABLET PO (16:44)
[2021-05-13 16:45] VITALS: PULSE 86
[2021-05-13] MEDS: MELATONIN 5 MG TABLET PO (21:24)
[2021-05-13] MEDS: SENNOSIDES 8.6 MG TABLET PO (21:25)
[2021-05-13] MEDS: QUEtiapine FUMARATE 25 MG TABLET PO (21:25)
[2021-05-14] VITALS: BP 127/80; PULSE 84; TEMP 35.8; O2SAT 97
[2021-05-14] MEDS: LEVOTHYROXINE SODIUM 100 MCG, LEVOTHYROXINE SODIUM 50 MCG 150 MCG PO (06:08)
[2021-05-14 08:00] VITALS: BP 135/74; PULSE 92; RESP 20; TEMP 36.6; O2SAT 97
[2021-05-14 08:11] LABS: Glucose Point of Care 97 mg/dl (65-105)
[2021-05-14 09:03] VITALS: PULSE 94
[2021-05-14] MEDS: ENOXAPARIN 30 MG/0.3 ML SYRINGE SUB-Q ×2 (09:03→20:39)
[2021-05-14] MEDS: metFORMIN HCL 500 MG TABLET PO (09:03)
[2021-05-14] MEDS: CYCLOBENZAPRINE HCL 10 MG TABLET PO ×3 (09:03→17:11)
[2021-05-14] MEDS: METOPROLOL TARTRATE 50 MG TAB PO ×3 (09:03→17:11)
[2021-05-14] MEDS: polyethylene glycoL 3350 17 GM POWD.PACK PO (09:03)
[2021-05-14] MEDS: SIMVASTATIN 10 MG TABLET 40 MG PO (09:04)
[2021-05-14] MEDS: DOCUSATE SODIUM 100 MG CAPSULE PO ×2 (09:05→20:54)
[2021-05-14] MEDS: FINASTERIDE 5 MG TABLET PO (09:05)
[2021-05-14] MEDS: MULTIVITAMINS THERAPEUTIC TAB (*BKC) 1 TABLET PO (09:07)
[2021-05-14 12:37] VITALS: PULSE 98
[2021-05-14 15:52] VITALS: BP 122/84; PULSE 78; RESP 20; TEMP 36.6; O2SAT 96
[2021-05-14 17:11] VITALS: PULSE 88
[2021-05-14] MEDS: MELATONIN 5 MG TABLET PO (20:55)
[2021-05-14] MEDS: QUEtiapine FUMARATE 25 MG TABLET PO (20:56)
[2021-05-14] MEDS: SENNOSIDES 8.6 MG TABLET PO (20:58)
[2021-05-15] VITALS: BP 126/93; PULSE 84; RESP 18; TEMP 36.2; O2SAT 95
[2021-05-15 05:30] LABS: Hematocrit 34.3 % (37.0-46.0); Mean Corpuscular HGB Conc 32.1 g/dL (32.0-36.0); Mean Corpuscular Hemoglobin 33.6 pg (27.0-31.0); Mean Corpuscular Volume 104.9 fL (78.0-102.0); Mean Platelet Volume 10.3 fl (8.7-11.0); Platelet Count Result 283 K/mm3 (150-420); Red Blood Count 3.27 M/mm3 (4.70-6.10); Red Cell Distribution Width 13.3 % (11.6-14.4); White Blood Count 6.5 K/mm3 (4.8-10.8)
[2021-05-15 05:43] LABS: Anion Gap 9 mmol/L (8-16); Blood Urea Nitrogen 10 mg/dL (7-18); Calcium 8.6 mg/dL (8.5-10.1); Carbon Dioxide 26 mmol/L (21-32); Chloride 102 mmol/L (98-108); Estimated CRCL calculation 99 ml/min; Estimated Glomerular Filt Rate > 60; Glucose 109 mg/dL (70-99); Osmolality Calculated 284 mOsm/kg (285-295); Sodium 137 mmol/L (136-145)
--- NOTE | 2021-05-15 07:05 | P.PNIM_ITS ---
Progress Note: A&P Assessment and Plan (1) Weakness: Code(s): R53.1 - Weakness Status: Acute Assessment and Plan: ? Exhibit tolerance during physical activity as evidenced by a normal fluctuation of vital signs during physical activity. ? Patient will be ability to perform required activities of daily living. ? Provide appropriate nutrition for healing and strength. ? Use appropriate to prevent falls. ? Continue physical therapy/occupational therapy. (2) Fracture of thoracic spine: Code(s): S22.009A - Unspecified fracture of unspecified thoracic vertebra, initial encounter for closed fracture Status: Acute Assessment and Plan: * Okay to resume warfarin 4 weeks after postop which is 226 * Change spinal dressing daily with none adhesive dressing * Okay to shower * NSGY following( Holekamp) * s/p t7-11 PSIF 04/26 * DVT prophylaxis okay to use Lovenox * TLSO for head of bed greater than 45 * Procedure completed on 04/26: 1.Stealth/computer-associated spinal stereotactic navigation 2. Bilateral posterior segmental instrumentation at T7,8,9,10,11 3.Open reduction, internal fixation of fracture at T8 and 9 (3) Afib: Code(s): I48.91 - Unspecified atrial fibrillation Status: Acute Assessment and Plan: * Okay to resume warfarin 4 weeks after postop which is 226 * DVT prophylaxis okay to use Lovenox * Continue metoprolol 50 mg 3 times daily * Patient with history of A. fib with RVR at outside hospital according to provider patient has a history of A. fib with RVR that corrected self without any intervention and patient is asymptomatic (4) HLD (hyperlipidemia): Code(s): E78.5 - Hyperlipidemia, unspecified Status: Acute Assessment and Plan: * Continue simvastatin (5) Hypothyroidism: Code(s): E03.9 - Hypothyroidism, unspecified Status: Acute Assessment and Plan: * Continue Synthroid * A referral for rehabilitation teacher has been placed by previous hospital he will call and schedule appointment once discharged (6) BPH (benign prostatic hyperplasia): Code(s): N40.0 - Benign prostatic hyperplasia without lower urinary tract symptoms Status: Acute Assessment and Plan: * Continue Proscar (7) Swollen R knee: Code(s): M25.461 - Effusion, right knee Status: Acute Assessment and Plan: * X-ray at outside hospital negative for acute injury * wrap as needed knee immobilizer in place * Continue PT OT * pain control is well controlled * A referral has been placed for follow-up for your right knee injury Dr. Lucas espinal MD [phone] (8) Acute encephalopathy: Code(s): G93.40 - Encephalopathy, unspecified Status: Acute Assessment and Plan: * Resolved before admission * Stroke work-up negative at outside hospital * Etiology unclear, UA unremarkable ABG within normal limits MRI unremarkable pneumonia within normal limit * Chest x-ray at outside hospital indicate pulmonary edema versus atypical pneumonia sputum culture pending at outside hospital * Doppler at outside hospital negative * TSH mildly elevated likely not contributory but will need PCP follow-up patient currently on home Synthroid dose * RESOLVED (9) Rib fracture: Code(s): S22.39XA - Fracture of one rib, unspecified side, initial encounter for closed fracture Status: Acute Assessment and Plan: * Old left-sided rib fracture * Continue pain control * Pt will go home on lovenox until the of this month where he will resume
--- NOTE | 2021-05-15 07:05 | PM.IMPN ---
Progress Note: A&P Assessment and Plan (1) Weakness: Code(s): R53.1 - Weakness Status: Acute Assessment and Plan: ? Exhibit tolerance during physical activity as evidenced by a normal fluctuation of vital signs during physical activity. ? Patient will be ability to perform required activities of daily living. ? Provide appropriate nutrition for healing and strength. ? Use appropriate to prevent falls. ? Continue physical therapy/occupational therapy. (2) Fracture of thoracic spine: Code(s): S22.009A - Unspecified fracture of unspecified thoracic vertebra, initial encounter for closed fracture Status: Acute Assessment and Plan: Okay to resume warfarin 4 weeks after postop which is 226 Change spinal dressing daily with none adhesive dressing Okay to shower NSGY following( Holekamp) s/p t7-11 PSIF 04/26 DVT prophylaxis okay to use Lovenox TLSO for head of bed greater than 45 Procedure completed on 04/26: 1.Stealth/computer-associated spinal stereotactic navigation 2. Bilateral posterior segmental instrumentation at T7,8,9,10,11 3.Open reduction, internal fixation of fracture at T8 and 9 (3) Afib: Code(s): I48.91 - Unspecified atrial fibrillation Status: Acute Assessment and Plan: Okay to resume warfarin 4 weeks after postop which is 226 DVT prophylaxis okay to use Lovenox Continue metoprolol 50 mg 3 times daily Patient with history of A. fib with RVR at outside hospital according to provider patient has a history of A. fib with RVR that corrected self without any intervention and patient is asymptomatic (4) HLD (hyperlipidemia): Code(s): E78.5 - Hyperlipidemia, unspecified Status: Acute Assessment and Plan: Continue simvastatin (5) Hypothyroidism: Code(s): E03.9 - Hypothyroidism, unspecified Status: Acute Assessment and Plan: Continue Synthroid A referral for bus escort has been placed by previous hospital he will call and schedule appointment once discharged (6) BPH (benign prostatic hyperplasia): Code(s): N40.0 - Benign prostatic hyperplasia without lower urinary tract symptoms Status: Acute Assessment and Plan: Continue Proscar (7) Swollen R knee: Code(s): M25.461 - Effusion, right knee Status: Acute Assessment and Plan: X-ray at outside hospital negative for acute injury wrap as needed knee immobilizer in place Continue PT OT pain control is well controlled A referral has been placed for follow-up for your right knee injury Dr. Lucas espinal MD [phone] (8) Acute encephalopathy: Code(s): G93.40 - Encephalopathy, unspecified Status: Acute Assessment and Plan: Resolved before admission Stroke work-up negative at outside hospital Etiology unclear, UA unremarkable ABG within normal limits MRI unremarkable pneumonia within normal limit Chest x-ray at outside hospital indicate pulmonary edema versus atypical pneumonia sputum culture pending at outside hospital Doppler at outside hospital negative TSH mildly elevated likely not contributory but will need PCP follow-up patient currently on home Synthroid dose RESOLVED (9) Rib fracture: Code(s): S22.39XA - Fracture of one rib, unspecified side, initial encounter for closed fracture Status: Acute Assessment and Plan: Old left-sided rib fracture Continue pain control Pt will go home on lovenox until the of this month where he will resume his coumadin Subjective Date/time seen: 05/15/21 07:05 had a discussion with patient this morning states that he is feeling good patient denies any pain. According to patient 2 days ago he had some shoulder pain that was resolved with Tylenol. Patient only concerns he does not have a bowel movement every day but every other day and he seems to have a bowel movement or 2 when he does have a bowel movement. Patient has positive bowel s
[2021-05-15 07:45] VITALS: BP 125/79; PULSE 95; RESP 18; TEMP 36.6; O2SAT 97
[2021-05-15] MEDS: polyethylene glycoL 3350 17 GM POWD.PACK PO (09:18)
[2021-05-15] MEDS: ENOXAPARIN 30 MG/0.3 ML SYRINGE SUB-Q ×2 (09:19→21:51)
[2021-05-15 09:20] VITALS: PULSE 94
[2021-05-15] MEDS: FINASTERIDE 5 MG TABLET PO (09:20)
[2021-05-15] MEDS: DOCUSATE SODIUM 100 MG CAPSULE PO ×2 (09:20→21:50)
[2021-05-15] MEDS: CYCLOBENZAPRINE HCL 10 MG TABLET PO ×3 (09:20→17:46)
[2021-05-15] MEDS: METOPROLOL TARTRATE 50 MG TAB PO ×3 (09:20→17:47)
[2021-05-15] MEDS: metFORMIN HCL 500 MG TABLET PO (09:20)
[2021-05-15] MEDS: MULTIVITAMINS THERAPEUTIC TAB (*BKC) 1 TABLET PO (09:20)
[2021-05-15] MEDS: SIMVASTATIN 10 MG TABLET 40 MG PO (09:20)
[2021-05-15 12:34] VITALS: PULSE 94
[2021-05-15 16:30] VITALS: BP 117/87; PULSE 75; RESP 18; TEMP 36.6; O2SAT 97
[2021-05-15 17:47] VITALS: PULSE 70
[2021-05-15] MEDS: SENNOSIDES 8.6 MG TABLET PO (21:50)
[2021-05-15] MEDS: QUEtiapine FUMARATE 25 MG TABLET PO (21:51)
[2021-05-15] MEDS: MELATONIN 5 MG TABLET PO (21:51)
[2021-05-16] VITALS (7 sets, daily range): BP systolic 116–125; BP diastolic 75–89; PULSE 75–95; RESP 18–20; TEMP 36.4–36.9; O2SAT 95–97
[2021-05-16] MEDS: LEVOTHYROXINE SODIUM 100 MCG, LEVOTHYROXINE SODIUM 50 MCG 150 MCG PO (06:20)
[2021-05-16 07:53] LABS: Glucose Point of Care 88 mg/dl (65-105)
[2021-05-16] MEDS: FINASTERIDE 5 MG TABLET PO (09:17)
[2021-05-16] MEDS: SIMVASTATIN 10 MG TABLET 40 MG PO (09:17)
[2021-05-16] MEDS: CYCLOBENZAPRINE HCL 10 MG TABLET PO ×3 (09:17→16:41)
[2021-05-16] MEDS: ENOXAPARIN 30 MG/0.3 ML SYRINGE SUB-Q ×2 (09:17→20:04)
[2021-05-16] MEDS: DOCUSATE SODIUM 100 MG CAPSULE PO ×2 (09:17→20:04)
[2021-05-16] MEDS: MULTIVITAMINS THERAPEUTIC TAB (*BKC) 1 TABLET PO (09:17)
[2021-05-16] MEDS: metFORMIN HCL 500 MG TABLET PO (09:17)
[2021-05-16] MEDS: METOPROLOL TARTRATE 50 MG TAB PO ×3 (09:17→16:41)
[2021-05-16] MEDS: QUEtiapine FUMARATE 25 MG TABLET PO (20:04)
[2021-05-16] MEDS: MELATONIN 5 MG TABLET PO (20:04)
[2021-05-16] MEDS: SENNOSIDES 8.6 MG TABLET PO (20:05)
--- NOTE | 2021-05-17 00:19 | PC.NURSE ---
Nurse attempted to change dressing to back after removing brace, patient states, no, the nurse said she would change it tomorrow. Sugar, laboratory tech informed.
[2021-05-17] MEDS: LEVOTHYROXINE SODIUM 100 MCG, LEVOTHYROXINE SODIUM 50 MCG 150 MCG PO (05:37)
[2021-05-17 08:00] VITALS: BP 120/80; PULSE 78; RESP 18; TEMP 36.5; O2SAT 97
[2021-05-17 08:27] LABS: Glucose Point of Care 94 mg/dl (65-105)
[2021-05-17] MEDS: CYCLOBENZAPRINE HCL 10 MG TABLET PO ×3 (09:14→17:02)
[2021-05-17] MEDS: DOCUSATE SODIUM 100 MG CAPSULE PO ×2 (09:14→21:09)
[2021-05-17] MEDS: metFORMIN HCL 500 MG TABLET PO (09:14)
[2021-05-17 09:15] VITALS: PULSE 78
[2021-05-17] MEDS: SIMVASTATIN 10 MG TABLET 40 MG PO (09:15)
[2021-05-17] MEDS: ENOXAPARIN 30 MG/0.3 ML SYRINGE SUB-Q ×2 (09:15→21:10)
[2021-05-17] MEDS: MULTIVITAMINS THERAPEUTIC TAB (*BKC) 1 TABLET PO (09:15)
[2021-05-17] MEDS: METOPROLOL TARTRATE 50 MG TAB PO ×3 (09:15→17:02)
[2021-05-17] MEDS: FINASTERIDE 5 MG TABLET PO (09:15)
[2021-05-17] MEDS: polyethylene glycoL 3350 17 GM POWD.PACK PO (09:21)
[2021-05-17 13:22] VITALS: PULSE 78
[2021-05-17 16:00] VITALS: BP 130/96; PULSE 88; RESP 20; TEMP 36.3; O2SAT 97
[2021-05-17 17:02] VITALS: PULSE 88
[2021-05-17] MEDS: QUEtiapine FUMARATE 25 MG TABLET PO (21:10)
[2021-05-17] MEDS: SENNOSIDES 8.6 MG TABLET PO (21:11)
[2021-05-17] MEDS: MELATONIN 5 MG TABLET PO (21:11)
[2021-05-18] VITALS: BP 109/76; PULSE 82; RESP 18; TEMP 36.4; O2SAT 95
[2021-05-18] MEDS: LEVOTHYROXINE SODIUM 100 MCG, LEVOTHYROXINE SODIUM 50 MCG 150 MCG PO (06:24)
[2021-05-18 08:00] VITALS: BP 120/92; PULSE 72; RESP 18; TEMP 36.5; O2SAT 96
[2021-05-18 08:12] LABS: Glucose Point of Care 101 mg/dl (65-105)
[2021-05-18 09:04] VITALS: PULSE 78
[2021-05-18] MEDS: SIMVASTATIN 10 MG TABLET 40 MG PO (09:04)
[2021-05-18] MEDS: metFORMIN HCL 500 MG TABLET PO (09:04)
[2021-05-18] MEDS: METOPROLOL TARTRATE 50 MG TAB PO ×3 (09:04→17:33)
[2021-05-18] MEDS: polyethylene glycoL 3350 17 GM POWD.PACK PO (09:04)
[2021-05-18] MEDS: MULTIVITAMINS THERAPEUTIC TAB (*BKC) 1 TABLET PO (09:05)
[2021-05-18] MEDS: FINASTERIDE 5 MG TABLET PO (09:05)
[2021-05-18] MEDS: CYCLOBENZAPRINE HCL 10 MG TABLET PO ×3 (09:05→17:32)
[2021-05-18] MEDS: ENOXAPARIN 30 MG/0.3 ML SYRINGE SUB-Q ×2 (09:05→21:03)
[2021-05-18] MEDS: DOCUSATE SODIUM 100 MG CAPSULE PO ×2 (09:05→21:05)
[2021-05-18 13:26] VITALS: PULSE 78
[2021-05-18 16:00] VITALS: BP 115/79; PULSE 88; RESP 20; TEMP 36; O2SAT 97
[2021-05-18 17:33] VITALS: PULSE 88
[2021-05-18] MEDS: SENNOSIDES 8.6 MG TABLET PO (21:04)
[2021-05-18] MEDS: MELATONIN 5 MG TABLET PO (21:05)
[2021-05-18] MEDS: QUEtiapine FUMARATE 25 MG TABLET PO (21:05)
[2021-05-19] VITALS: BP 111/74; PULSE 74; RESP 14; TEMP 36.8; O2SAT 96
[2021-05-19 05:28] LABS: INR 1.1; Prothrombin Time 11.2 Seconds (9.50-12.10)
[2021-05-19] MEDS: LEVOTHYROXINE SODIUM 100 MCG, LEVOTHYROXINE SODIUM 50 MCG 150 MCG PO (06:48)
[2021-05-19 08:00] VITALS: BP 133/77; PULSE 82; RESP 18; TEMP 36.6; O2SAT 95
[2021-05-19 08:12] LABS: Glucose Point of Care 128 mg/dl (65-105)
[2021-05-19 09:14] VITALS: PULSE 78
[2021-05-19] MEDS: METOPROLOL TARTRATE 50 MG TAB PO ×3 (09:14→16:51)
[2021-05-19] MEDS: metFORMIN HCL 500 MG TABLET PO (09:14)
[2021-05-19] MEDS: CYCLOBENZAPRINE HCL 10 MG TABLET PO ×3 (09:14→16:51)
[2021-05-19] MEDS: SIMVASTATIN 10 MG TABLET 40 MG PO (09:14)
[2021-05-19] MEDS: polyethylene glycoL 3350 17 GM POWD.PACK PO (09:14)
[2021-05-19] MEDS: DOCUSATE SODIUM 100 MG CAPSULE PO ×2 (09:15→21:07)
[2021-05-19] MEDS: MULTIVITAMINS THERAPEUTIC TAB (*BKC) 1 TABLET PO (09:15)
[2021-05-19] MEDS: ENOXAPARIN 30 MG/0.3 ML SYRINGE SUB-Q ×2 (09:15→21:07)
[2021-05-19] MEDS: FINASTERIDE 5 MG TABLET PO (09:15)
[2021-05-19 13:02] VITALS: PULSE 78
[2021-05-19 16:00] VITALS: BP 122/85; PULSE 84; RESP 20; TEMP 36.5; O2SAT 95
[2021-05-19 16:51] VITALS: PULSE 84
[2021-05-19] MEDS: MELATONIN 5 MG TABLET PO (21:07)
[2021-05-19] MEDS: SENNOSIDES 8.6 MG TABLET PO (21:08)
[2021-05-19] MEDS: QUEtiapine FUMARATE 25 MG TABLET PO (21:08)
[2021-05-20] VITALS: BP 123/79; PULSE 96; RESP 16; TEMP 36.5; O2SAT 95
[2021-05-20] MEDS: LEVOTHYROXINE SODIUM 100 MCG, LEVOTHYROXINE SODIUM 50 MCG 150 MCG PO (06:28)
[2021-05-20 08:00] VITALS: BP 136/79; PULSE 64; RESP 16; TEMP 36.6; O2SAT 97
--- NOTE | 2021-05-20 08:00 | PM.DS ---
DS: Admitting Diagnosis Discharge Date 05/20/2021 Admitting Diagnosis Encephalopathy, Weakness, REhab DS: Discharge Diagnosis Discharge Diagnosis (1) Rib fracture: Code(s): S22.39XA - Fracture of one rib, unspecified side, initial encounter for closed fracture Status: Acute Assessment and Plan: TS LO on while up will continue to use walker Aquacel dressing changed to back every 5 days will cleanse with normal saline or wound cleanser apply dry dressing Follow-up with primary care doctor as already scheduled See Dr. Blas appointment needs to be seen JUANA or for 3 week follow up (2) Weakness: Code(s): R53.1 - Weakness Status: Acute Assessment and Plan: Patient has been cleared from physical therapy and released will continue to use walker and keep TSL on (3) Acute encephalopathy: Code(s): G93.40 - Encephalopathy, unspecified Status: Acute Assessment and Plan: Resolved (4) Fracture of thoracic spine: Code(s): S22.009A - Unspecified fracture of unspecified thoracic vertebra, initial encounter for closed fracture Status: Acute Assessment and Plan: We'll continue to keep the T SLO on while head of bed is greater than 45 Okay to shower Coumadin will be held until 05/24/2021 We'll resume Coumadin on 05/25/2021 (5) Afib: Code(s): I48.91 - Unspecified atrial fibrillation Status: Acute Assessment and Plan: Currently on Lovenox will resume Coumadin on 05/25/2021 Asymptomatic at this time rate controlled (6) Swollen R knee: Code(s): M25.461 - Effusion, right knee Status: Acute Assessment and Plan: Call Dr. Zavala's office and schedule appointment MRI may be needed after swelling has resolved as an outpatient per recommendation previous hospital DS: Summary Hospital Course Reason for hospitalization: Weakness, acute encephalopathy, rehab, thoracic fracture Hospital Course: This is a 76-year-old male that was admitted into our swing unit post hospital visit at [facility] for a T9 vertebral fracture with a paraspinal hematoma after procedure patient also had right knee pain with an effusion with a fracture of one rib on the left side which was considered a closed fracture. Patient presented with a T SLO on required dressing changes and intensive physical therapy Mr. Young has continued to improve and is able to ambulate with walker and minimal assist. Patient at this time requires assistance with dressing changes to the spine that is improving without no signs or symptoms of infection at this time. During previous hospital stay Mr. Young developed atrial fibrillation which is currently now under control. Patient takes home dose of Coumadin but currently is on injections of Lovenox twice a day and will continue it until after the in which he then will resume his Coumadin dose. Patient will follow up with his primary care provider, referral for endocrinology from previous hospital he will see his surgeon as well as a orthopedic referral has been given due to knee pain and effusion. At this time Mr. Young is prepared to go home with his 's assistance he has been made aware medications and doctors appointments. Patient will use walker with minimal assistance able to eat and drink without difficulties and is afebrile and denies any pain at this time. Status at Discharge Functional status at discharge: uses cane/walker Time Spent with Patient Time attestation: Total time spent providing and/or coordinating discharge services:35 Exam Narrative: GENERAL: This is a well-nourished, well-developed patient, in no apparent distress. HEAD: normocephalic, atraumatic. EYES: PERRL. EARS Hearing grossly intact. NOSE: External nose normal with no obvious nasal discharge, nares without redness, no rhinorrhea. NECK: Neck supple, non-tender without lymphadenopathy, masses or thyromegaly. CARDIOVASCULAR: Regular rate and rhythm RESPIRA
[2021-05-20 08:02] LABS: Glucose Point of Care 120 mg/dl (65-105)
[2021-05-20] MEDS: ENOXAPARIN 30 MG/0.3 ML SYRINGE SUB-Q (08:42)
[2021-05-20 08:43] VITALS: PULSE 64
[2021-05-20] MEDS: FINASTERIDE 5 MG TABLET PO (08:43)
[2021-05-20] MEDS: MULTIVITAMINS THERAPEUTIC TAB (*BKC) 1 TABLET PO (08:43)
[2021-05-20] MEDS: METOPROLOL TARTRATE 50 MG TAB PO (08:43)
[2021-05-20] MEDS: DOCUSATE SODIUM 100 MG CAPSULE PO (08:43)
[2021-05-20] MEDS: CYCLOBENZAPRINE HCL 10 MG TABLET PO (08:43)
[2021-05-20] MEDS: metFORMIN HCL 500 MG TABLET PO (08:43)
[2021-05-20] MEDS: SIMVASTATIN 10 MG TABLET 40 MG PO (08:43)
--- NOTE | 2021-05-20 14:19 | PC.NURSE ---
Discharge instructions and medication list reviewed at length with patient and . All questions answered. Turtle shell and immobilizer in place. Pt assisted to wheelchair and escorted to front of hospital. Pt assisted into private vehicle. Pt [id number] immobilizer to position in the vehicle. (He stated this was his instructions per PT.)
--- NOTE | 2021-05-21 11:51 | PCDIET ---
Unable to contact for discharge call back.
== END 2021-05-20 12:10 | disposition home or self-care (01) | DRG 560 ==
PROVIDERS: Nurse Practitioner; Nurse Practitioner Family; Admitting Provider Emergency Medicine; PCP Internal Medicine; Visit Provider Emergency Medicine
DX: S22.079D Unspecified fracture of T9-T10 vertebra, subsequent encounter for fracture with routine healing (principal); I48.20 Chronic atrial fibrillation, unspecified; S22.39XD Fracture of one rib, unspecified side, subsequent encounter for fracture with routine healing; R53.1 Weakness; M25.461 Effusion, right knee; E78.5 Hyperlipidemia, unspecified; E03.9 Hypothyroidism, unspecified; N40.0 Benign prostatic hyperplasia without lower urinary tract symptoms; K57.30 Diverticulosis of large intestine without perforation or abscess without bleeding; W10.9XXD Fall (on) (from) unspecified stairs and steps, subsequent encounter
CPT/HCPCS: 36415; 80048; 80053; 82948; 83735; 85027; 85610; 97110; 97161; 97165; 97530; 97535; A9270; J1650

== ENCOUNTER 2021-06-04 09:10 | Outpatient (CLI) | payer MEDICARE, SELFPAY ==
[2021-06-04 09:23] LABS: Basophils Absolute Auto 0.04 K/mm3 (0.00-0.10); Basophils Percent Auto 0.5 % (0.0-1.0); Eosinophils Absolute Auto 0.21 K/mm3 (0.02-0.50); Eosinophils Percent Auto 2.4 % (1.0-6.0); Hemoglobin 13.7 g/dL (12.4-15.3); Immature Granulocyte Absolute 0.04 K/mm3 (0.00-0.00); Immature Granulocyte Percent A 0.5 % (0.0-0.0); Lymphocytes Absolute Auto 1.54 K/mm3 (1.10-4.50); Lymphocytes Percent Auto 17.4 % (18.0-42.0); Mean Corpuscular HGB Conc 32.6 g/dL (32.0-36.0); Mean Corpuscular Hemoglobin 33.4 pg (27.0-31.0); Mean Corpuscular Volume 102.4 fL (78.0-102.0); Mean Platelet Volume 10.2 fl (8.7-11.0); Monocytes Absolute Auto 0.71 K/mm3 (0.10-0.90); Neutrophils Absolute Auto 6.3 K/mm3 (1.7-7.2); Neutrophils Percent Auto 71.2 % (50.0-70.0); Platelet Count Result 249 K/mm3 (150-420); Red Cell Distribution Width 12.9 % (11.6-14.4); White Blood Count 8.9 K/mm3 (4.8-10.8)
[2021-06-04 09:33] LABS: Hemoglobin A1C 5.8 % (<5.7)
[2021-06-04 10:46] LABS: Alanine Aminotransferase 24 U/L (16-63); Albumin Level 3.4 g/dL (3.4-5.0); Alkaline Phosphatase 164 U/L (46-116); Anion Gap 10 mmol/L (8-16); Aspartate Amino Transferase 18 U/L (15-37); Bilirubin,Total 0.6 mg/dL (0.00-1.00); Blood Urea Nitrogen 12 mg/dL (7-18); Calcium 8.8 mg/dL (8.5-10.1); Carbon Dioxide 26 mmol/L (21-32); Chloride 104 mmol/L (98-108); Cholesterol 147 mg/dL (0-200); Estimated Glomerular Filt Rate > 60; Glucose 126 mg/dL (70-99); HDL Direct 55 mg/dL (40-60); LDL Cholesterol Calculated 72 mg/dL (<130); Osmolality Calculated 291 mOsm/kg (285-295); Potassium 4.2 mmol/L (3.5-5.1); Sodium 140 mmol/L (136-145); Thyroid Stimulating Hormone 4.68 uIU/mL (0.36-3.74); Total Protein 6.9 g/dL (6.4-8.2); Triglycerides 101 mg/dL (0-150); Vitamin B12 598 pg/mL (193-986)
== END 2021-06-04 09:11 | disposition home or self-care (01) ==
LOC: CHSLAB 09:13
PROVIDERS: PCP Internal Medicine; Visit Provider Internal Medicine
DX: I48.20 Chronic atrial fibrillation, unspecified (principal); E78.49 Other hyperlipidemia; R73.03 Prediabetes; E53.8 Deficiency of other specified B group vitamins
CPT/HCPCS: 36415; 80053; 80061; 82607; 83036; 84443; 85025

== ENCOUNTER 2021-06-06 13:10 | Outpatient (CLI) | payer MEDICARE, SELFPAY | END 2021-06-06 13:11 | disposition home or self-care (01) | PROVIDERS: PCP Internal Medicine; Visit Provider Orthopaedic Surgery | DX: Z01.818 Encounter for other preprocedural examination (principal); S76.111A Strain of right quadriceps muscle, fascia and tendon, initial encounter | CPT/HCPCS: 87070; 87147; 87181; 87186 ==

== ENCOUNTER 2021-06-06 14:51 | Outpatient (CLI) | payer MEDICARE, SELFPAY ==
--- NOTE | ~2021-06-06 | MR_ITS ---
EXAMINATION: MR knee RT wo con DATE: 06/06/2021 17:20 INDICATION: Right quadriceps rupture post fall 2 months prior TECHNIQUE: Magnetic resonance imaging (MRI) of the right knee was performed without intravenous contr ast. Sequences included coronal PD-weighted FSE, coronal PD-weighted FS FSE, sagittal T2-weighted FS E, sagittal PD-weighted FS FSE and axial PD weighted fat saturated FSE. COMPARISON: Right knee radiographs dated 04/25/2021 FINDINGS: Medial compartment: Medial meniscus is normal. Mild partial-thickness cartilage loss with smooth chondral surface along t he central weightbearing medial femoral condyle. Tiny marginal osteophytes along the posterior aspect of the medial femoral condyle and medial tibial plateau. Lateral compartment: Lateral meniscus is normal.Shallow chondral fissuring along the posterior lateral tibial plateau. Patellofemoral compartment: Partial-thickness chondral ulceration and deep fissuring at the patellar apical ridge and immediately adjacent portions of the medial and lateral patellar facets with underlying edema-like subarticular trochlear cartilage is normal. Marrow signal change. Ligaments and tendons: Anterior and posterior cruciate ligaments are normal. Mild thickening and mild increased signal at th e proximal medial and fibular collateral ligaments without surrounding edema consistent with mild sca rring related to chronic sprains. Full-thickness tear of the quadriceps tendon. There is moderate to severe underlying quadriceps tendinopathy and large enthesophyte at its patellar insertion. Prostheti c 2 cm separation of the tear margins with secondary patella and accordioning of the patellar tendon which appears normal accounting for bands of magic angle artifact along the folds of the tendon. Ther e is approximately 3 cm frayed and lax appearing tendon material remaining attached to the proximal p ole of the patella. Mild tendinopathy of the distal semimembranosus tendon. The visualized medial and lateral hamstring tendons as well as the iliotibial band are otherwise normal. Fluid: Moderate-sized right knee joint effusion with extension of fluid from the suprapatellar parts into th e quadriceps tendon tear defect. No loose osteochondral bodies identified. Osseous/other: No fracture or pathologic marrow replacing process. IMPRESSION: 1. Moderate to severe quadriceps tendinopathy with full-thickness tear. 2. 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 3. Moderate-sized right knee joint effusion. Reviewed, dictated and finalized at location [facility] IMPRESSION: 1. Moderate to severe quadriceps tendinopathy with full-thickness tear. 2. 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 3. Moderate-sized right knee joint effusion.
== END 2021-06-06 14:52 | disposition home or self-care (01) ==
PROVIDERS: PCP Internal Medicine; Visit Provider Orthopaedic Surgery
DX: S76.111A Strain of right quadriceps muscle, fascia and tendon, initial encounter (principal); M17.11 Unilateral primary osteoarthritis, right knee; M94.261 Chondromalacia, right knee; M25.461 Effusion, right knee
CPT/HCPCS: 73721

== ENCOUNTER 2021-06-10 17:14 | Observation (INO) | payer MEDICARE, SELFPAY ==
--- NOTE | 2021-06-06 14:01 | PC.NURSE ---
Report to the Outpatient Waiting Room, entrance under the green pavilion located off [facility], at time _1000 on date __06/09/21 . OR Time:1200 . - You and your visitor will be asked a series of questions to screen for COVID 19 for your protection. - A mask is required within the hospital. Preoperative COVID Testing Requirements: No COVID Test needed if: (proof is required; if not received patient will have Rapid Test prior to entry) - Patient has received COVID Vaccine at least 14 days prior to procedure date or - Patient has positive COVID test result within last 90 days of surgery date. COVID Test needed if above criteria is not met If not COVID vaccinated a COVID test must be conducted within 72 hours of surgery and patient is asked to isolate self from time of testing until procedure. You will go to the [facility] for your COVID testing. The [facility] is located at the corner of [address] [facility]. You will only be called if COVID results are positive and your surgeon may reschedule your elective surgery date. Patients may have clear liquids (water, carbonated beverages, clear teas, apple juice) until 3 hours prior to surgery with a maximum of 20 ounces. - No food from midnight until time of surgery - Infants may have breast milk until 4 hours before surgery, infant formula 6 hours prior to surgery. - Children will be allowed to drink immediately following surgery. If applicable, please bring a bottle or sippy cup to assist with drinking. Juice, water, soda, and popsicles are readily available. For infants on formula, please bring formula the day of surgery. Pacifiers are allowed. Take the following medications with a SIP of water the morning of surgery: LEVOTHYROXINE,METOPROLOL Medications to discontinue per physician __LAST DOSE OF ELIQUIS TODAY PER DR JEWELL, ALL VITAMINS AND SUPPLEMENTS 3 DAYS PRE OP Date to take last dose____06/06/21 Please no make-up, nail arabic, hairspray, perfume, deodorant, or body powder the day of surgery. No jewelry (including any body piercings) or valuables the day of surgery, leave them at home. Please take a shower or bath the night before, or the morning of, surgery with an antibacterial soap. Wear comfortable, loose fitting clothing. Children are encouraged to wear pajamas. - Jewelry must be removed prior to entering the operating room. Rings and piercings that are not removed may be cut off. - The hospital will not accept responsibility for valuables. - Please leave all valuables, including medications, at home the day of surgery. If you are going home after surgery, a licensed catshovel driver must drive you home. - NO public transportation without another adult. - We recommend that an adult stay with you for 24 hours following discharge. - We also recommend that you do not drive, make important decision, drink alcoholic beverages, or take any drugs that were not prescribed by your health care provider for at least 24 hours after your discharge time. For Pediatric surgeries, we recommend two adults accompany the child home (only one inside the building at this time). One visitor will be allowed to accompany the patient into the hospital. Patients visitor will be instructed to remain with patient at all times or leave the building. We will allow the visitor to come back to the postoperative area when patient is ready. Follow any additional instructions given to you from your surgeon. VERBAL AND WRITTEN instructions given to ___PATIENT AND SISSY and asked if any additional questions and then verbalized understanding. Patient advised to call surgeon office or pre surgery nurse liaison [phone] if any additional questions.
[2021-06-06 14:24] VITALS: BMI 33.7
--- NOTE | 2021-06-07 18:53 | PM.IMHP ---
H&P: HPI History of Present Illness Date/Time: 06/07/21 18:53 Chief Complaint: Subacute right quadriceps rupture [facility] Past Medical History Medical History (Updated 05/08/21 @ 12:[address]) Afib BPH (benign prostatic hyperplasia) Cardiac dysrhythmia Chronic ischemic heart disease Diverticula of colon Fracture of thoracic spine HLD (hyperlipidemia) Hypothyroidism Malignant melanoma neck Surgical History Surgical History (Updated 05/08/21 @ 12:[address]) H/O hernia repair History of tonsillectomy Family History Family History (Updated 05/08/21 @ 12:[address]) Father Pancreatic cancer Cancer Social History Social History Smoking packs per day: 0.5 Smoking cigarettes per day: 10.0 Years smoked: 12 Smoking pack-years: 6.00 Smoking status: Former smoker Tobacco type: cigarettes Second hand tobacco smoke exposure: No Smoking end date: 03/29/76 Alcohol intake: current Drinks per week: 5 Substance use: never Spiritual care concerns: No Meds Home Medications and Allergies Home Medications Medication Instructions Recorded Confirmed Type acetaminophen 650 mg PO Q6H PRN 05/08/21 06/06/21 History docusate sodium 100 mg PO BID 05/08/21 06/06/21 History ergocalciferol (vitamin D2) 50,000 unit PO WEEKLY 05/08/21 06/06/21 History finasteride [Proscar] 5 mg PO DAILY 05/08/21 06/06/21 History levothyroxine [Synthroid] 150 mcg PO DAILY 05/08/21 06/06/21 History multivitamin 1 tablet PO DAILY 05/08/21 06/06/21 History polyethylene glycol 3350 17 g PO PRN PRN 05/08/21 06/06/21 History sennosides [Senokot] 8.6 mg PO DAILY 05/08/21 06/06/21 History simvastatin [Zocor] 40 mg PO HS 05/08/21 06/06/21 History apixaban [Eliquis] 5 mg PO BID 06/06/21 06/06/21 History cyclobenzaprine 10 mg PO PRN PRN 06/06/21 06/06/21 History melatonin 10 mg PO HS PRN 06/06/21 06/06/21 History metoprolol tartrate 50 mg PO BID 06/06/21 06/06/21 History Allergies Allergy/AdvReac Type Severity Reaction Status Date / Time shellfish derived Allergy Anaphylactic Verified 06/06/21 13:28 Shock morphine AdvReac Vomiting Verified 06/06/21 13:28 Assessment and Plan Additional Plan Patient is a 76-year-old gentleman who has a patient of Dr. Porter out of [facility] in [place] who presents for repair of a 6-1/2-week-old right quadriceps tendon rupture with retraction. He fell down some steps at his home on April 24. He was seen at the [facility] emergency room where x-rays of his right knee were negative except for faint ossifications approximately 6 cm proximal to the patella and a severe unstable T9 vertebral body fracture. He was transferred to [facility] and on the he underwent a posterior fusion with instrumentation from T7-T11. 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 An echocardiogram was performed and according to the patient looked fine. Re of requested the consultation notes and the echocardiogram as of the the afternoon but have not received the records as yet we will try again this morning. He does have a history of atrial fibrillation for which she was on Coumadin for many years and a history of some mitral valve regurgitation. After his surgery was on prophylactic doses of Lovenox 30 mg q.12 hours for 4 weeks and after 4 weeks he was started again on full strength anticoagulation for prophylaxis for his atrial fibrillation and was started on Eliquis 5 mg twice daily. He took his last dose a.m. of 06/06/2021 was told to stop it after that. His postoperative course was significant for severe delirium diagnosed as an acute metabolic encephalopathy. He had a CT scan of his head and an EEG as part of the workup for that. The [facility] discharge summary mentions that he had Dopplers on 05/04 which were negative and presumably
[2021-06-09] VITALS (16 sets, daily range): BP systolic 112–145; BP diastolic 69–92; PULSE 76–123; RESP 10–20; TEMP 36.4–37.2; O2SAT 95–100
--- NOTE | 2021-06-09 09:35 | WPDANESEPPF ---
Anes - Initial Pre Proc Eval Procedure: Operation Date: 06/09/21 12:00 Proposed Procedures p Right Quadriceps Tendon Repair - Gatito Nguyen MD <Johnny Soares MD - Last Filed: 06/19/21 13:55> Date/Time: 06/09/21 09:35 <Johnny Soares MD - Last Filed: 06/19/21 13:55> Surgeon: Gatito Nguyen MD <Johnny Soares MD - Last Filed: 06/19/21 13:55> Pre Op Diagnosis: right quad tendon rupture, sub acute <Johnny Soares MD - Last Filed: 06/19/21 13:55> Patient Data Age: 76 Gender: M Height: 1.85 m Weight: 116.1 kg <Johnny Soares MD - Last Filed: 06/19/21 13:55> Allergies Allergy/AdvReac Type Severity Reaction Status Date / Time shellfish derived Allergy Anaphylactic Verified 06/09/21 11:20 Shock morphine AdvReac Vomiting Verified 06/09/21 11:20 <Johnny Soares MD - Last Filed: 06/19/21 13:55> Home Medications Medication Instructions Recorded Confirmed Type ergocalciferol (vitamin D2) 50,000 unit PO WEEKLY 05/08/21 06/11/21 History finasteride [Proscar] 5 mg PO DAILY 05/08/21 06/11/21 History levothyroxine [Synthroid] 150 mcg PO DAILY 05/08/21 06/11/21 History multivitamin 1 tablet PO DAILY 05/08/21 06/11/21 History polyethylene glycol 3350 17 g PO PRN PRN 05/08/21 06/11/21 History simvastatin [Zocor] 40 mg PO HS 05/08/21 06/11/21 History Eliquis 5 mg PO BID 06/06/21 06/11/21 History melatonin 10 mg PO HS PRN 06/06/21 06/11/21 History metoprolol tartrate 50 mg PO BID 06/06/21 06/11/21 History acetaminophen 1,000 mg PO Q6HR #90 tablet 06/11/21 06/11/21 Rx cephalexin 500 mg PO Q6HR #44 cap 06/11/21 06/11/21 Rx polyethylene glycol 3350 [Miralax] 17 g PO QAM #30 ea 06/11/21 06/11/21 Rx sennosides-docusate sodium 2 tab PO BID #60 tablet 06/11/21 06/11/21 Rx [Senokot-S] <Johnny Soares MD - Last Filed: 06/19/21 13:55> Patient hx anesthesia problems: none <Lester Almazan DO - Last Filed: 06/09/21 11:03> Family hx anesthesia problems: none <Lester Almazan DO - Last Filed: 06/09/21 11:03> Results Review: All pre-operative results and documents have been reviewed as part of the pre-operative evaluation. <Johnny Soares MD - Last Filed: 06/19/21 13:55> ON LICENSE OF [facility] Past Medical History Medical History: Medical History Acute encephalopathy Afib BPH (benign prostatic hyperplasia) Cardiac dysrhythmia Chronic ischemic heart disease Diverticula of colon HLD (hyperlipidemia) Hypothyroidism Malignant melanoma neck Prediabetes Rib fracture Scoliosis of thoracic spine Swollen R knee <Johnny Soares MD - Last Filed: 06/19/21 13:55> Surgical History Surgical History: Surgical History H/O hernia repair b/l inguinal and umbilcal History of tonsillectomy S/P fusion of thoracic spine <Johnny Soares MD - Last Filed: 06/19/21 13:55> Family History Family History: Family History Father Pancreatic cancer Cancer Mother Osteoporosis Hypothyroidism <Johnny Soares MD - Last Filed: 06/19/21 13:55> Social History Social History: Social History 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
--- NOTE | 2021-06-09 11:03 | WPDANESPNB ---
Anes - Peripheral Nerve Block Date/Time: 06/09/21 11:03 I have discussed with the patient/family/POA the placement of a peripheral nerve block for post-operative pain management, including associated risks, benefits, complications, and side effects. Alternative methods of post-operative analgesia were detailed. Questions were solicited and answers provided to the satisfaction of the patient/family/POA. Time-Out: A pre-procedural Time-Out was completed immediately before starting the procedure and confirmed: Patient Identification, Site, Procedure, Patient Position and the Availability of Requisite Equipment. Clinical Indications: Acute post-operative pain management requested by the operative surgeon. Nerve Block Insertion Note Anes-nerve block: femoral right Patient position: supine Skin prep: chlorhexidine Needle: 22 gauge, stimulating, insulated echogenic needle. Needle length: 80 mm Technique: nerve stimulation lost at (mA) (0.3) and ultrasound Injectate: bupivacaine 0.5% with epi 5 mcg/ml (30cc - no epi) Observations: tolerated well Complications: none Procedure start time:: 1142 Procedure end time:: 1145
[2021-06-09] MEDS: LACTATED RINGERS 1,000 ML 30 ML IV CONT ×2 (11:10→14:29)
[2021-06-09] MEDS: ACETAMINOPHEN 500 MG TABLET 1000 MG PO ×3 (11:24→23:01)
[2021-06-09] MEDS: KETOROLAC 15 MG/ML VIAL (*BKC) IV PUSH (11:30)
--- NOTE | 2021-06-09 11:47 | WPDHPUPDATE1 ---
History and Physical Update Update Date/Time: 06/09/21 11:47 History and Physical has been reviewed, including an updated exam of the patient. There are NO changes in the patient's condition. Risks, benefits, and alternatives have been discussed and questions answered. Patient agrees to proceed with procedure.
[2021-06-09] MEDS: ceFAZolin 2 GM/D5W 50 ML 2 GM/50 ML BAG IVPB (11:58)
[2021-06-09] MEDS: ceFAZolin SODIUM 1 GM VIAL IV PUSH (14:01)
--- NOTE | 2021-06-09 14:54 | W.PM.PROC2 ---
Procedure Note - Detailed Date of Procedure 06/09/21 Pre-op Diagnosis right quad tendon rupture, sub acute Post-op Diagnosis Same Procedure Performed Repair right quadriceps tendon rupture with acellular dermal allograft augmentation Surgeon Gatito Nguyen MD Residential Program Manager bee Anesthesia General Description of Procedure Patient was brought to the operating room and general anesthesia was administered. He received 2 g of Ancef weight based vancomycin preoperatively. The left right leg was prepped draped usual fashion. Limb was exsanguinated tourniquet elevated to 300 mmHg. A 7 in longitudinal incision was made starting about 4 in proximal to the patella extending distally to about an inch distal to the inferior pole of patella. Fasciocutaneous flaps were elevated. The interval between the surface of the quadriceps muscle and the fascia was identified medially and laterally. The the quadriceps rupture occurred 6.5 weeks ago and there was extensive scarring and retraction. Adhesions between the quadriceps in the overlying subdermal fascia were released and adhesions between the quadriceps and the medial lateral femoral condyles were released recreating the gutters. The interval between the pre femoral fat in the quadriceps was released and the and of the quadriceps debrided of scar tissue. The proximal pole of patella had some degenerated and this tissue on it which was removed. The proximal pole was thoroughly scraped to a bleeding surface. Then using the Arthrex fiber anchors, we used a baseball whip stitch extending 2-1/2 inches up the medial aspect of the tendon and then back down the medial aspect of the tendon and then another FiberTape the same way extending up to a 1/2 inches the lateral aspect of the tendon the back down to the far lateral aspect tendon.. Next we prepared the patella. Three guide pins from the 4.5 cannulated screw set were placed running from proximal to distal diverting slightly to give optimal bone bridges distally. A Arthrex FiberTape was passed down the lateral hole and back up the central hole in the 2nd tape passed down the central hole and brought up the medial hole. The knee was brought into full extension and in full extension the quadriceps tendon with maximal tension on the sutures placed the tendon just reached the superior pole of the patella. The 4 limbs from the quadriceps tendon were tied securely to the 4 limbs from the patella. The medial lateral retinaculum was repaired. Most of this was done with 2. Ethibond and a couple of the stitches that were tendon the tendon adjacent the patella we used the FiberTape. We then opened up the Arthrex 4 cm by 7 7 cm by 2 mm thick acellular dermal matrix allograft. The top side was marked top. Prior to tying the sutures traversing the repair we placed 2 G2 might take anchors in between the tunnels in the patella about detention down the patella to be able to securely anchor the allograft to the anterior surface the patella. We then used these anchors to firmly secure the distal portion of the allograft and used 2. Fiber wires to secure the proximal aspect of the allograft and the tendon and where was overlying the muscle we used 0 Ethibond which we did circumferentially to pull the graft tight in all directions. The distal edge of the graft the corners were repaired to the medial lateral retinaculum about the mid pole of patella and we then passed 2. Ethibond sutures in a simple mattress fashion 3 of them to compress the graft to the anterior surface of the quadriceps tendon. This completed the repair. We did have a tourniquet up for about 25 minutes and then put it down. The skin was closed with 2 subcutaneous Vicryl 3-0 subcuticular Monocryl and glue EBL was less than 100 cc. There were no complications. This placed in the knee brace locked in full extension transferred postop recovery in good condition. Patient had a common femoral nerve block preoperatively to relax the
[2021-06-09] MEDS: MICONAZOLE NITRATE 2% CREAM 30 GM TUBE 1 APPLIC TOPICAL (15:30)
[2021-06-09] MEDS: oxyCODONE HCL (*CRX) 5 MG TAB IR PO ×2 (17:18→20:13)
--- NOTE | 2021-06-09 18:03 | PM.IMCN ---
Assessment and Plan Assessment and plan (1) Status post tendon repair: Code(s): Z98.890 - Other specified postprocedural states Status: Acute (2) Afib: Code(s): I48.91 - Unspecified atrial fibrillation Status: Acute (3) BPH (benign prostatic hyperplasia): Code(s): N40.0 - Benign prostatic hyperplasia without lower urinary tract symptoms Status: Acute (4) Hypothyroidism: Code(s): E03.9 - Hypothyroidism, unspecified Status: Acute (5) HLD (hyperlipidemia): Code(s): E78.5 - Hyperlipidemia, unspecified Status: Acute (6) Prediabetes: Code(s): R73.03 - Prediabetes Status: Acute Additional Plan 76 year old male with osteoporosis, hypothyroidism, persistent atrial fibrillation, obesity, hyperlipidemia, CAD, BPH, prediabetes that is s/p Repair right quadriceps tendon rupture with acellular dermal allograft augmentation 06/09/2021 Patient admitted to [facility] Vancomycin and Ancef in light of patient's recent stay in healthcare settings Pain medication per ortho surgeon Continue home medications metoprolol for patient's persistent atrial fibrillation w 2.5 mg IV push of metoprolol p.r.n. for sustained heart rate greater than 110 Blood glucose monitoring b.i.d. while inpatient low-dose insulin sliding scale may need to be started if blood glucose elevations verified Diabetic diet PT/OT IS q2H T3T4 pending (pt would like his primary to increase Synthroid if necessary) am labs Low-dose Eliquis 2.5 mg p.o. b.i.d. per orthopedist SCD placed to nonoperative leg Thank you for allowing us to participate in the care of your patient. HPI Data of Consult Consult date: 06/09/21 Requesting Physician: Gatito Nguyen MD Primary Care Provider: Arsh Camacho, Consult Narrative Narrative: Yang Young is a 76 year old male with osteoporosis, hypothyroidism, persistent atrial fibrillation, obesity, hyperlipidemia, CAD, BPH, prediabetes that is admitted to the hospital for elective repair of quadriceps tendon tear. Patient states that he was going up and down the stairs to his basement working on replacing a his pump when he fell resulting in traumatic injury to his right thigh. Patient is seen postoperatively doing well denies any pain he is noted to be in a knee immobilizer with Trey dressing this is not removed during my examination. Review of Systems Review of Systems: Fourteen point review systems negative except for above noted in HPI and chronic lower extremity discoloration distal to knee bilaterally with intermittent swelling PMFSH Past Medical History Medical History (Updated 06/09/21 @ 18:46 by Kristen French MD) Acute encephalopathy Afib BPH (benign prostatic hyperplasia) Cardiac dysrhythmia Chronic ischemic heart disease Diverticula of colon HLD (hyperlipidemia) Hypothyroidism Malignant melanoma neck Prediabetes Rib fracture Scoliosis of thoracic spine Swollen R knee Surgical History Surgical History (Updated 06/09/21 @ 18:46 by Kristen French MD) H/O hernia repair b/l inguinal and umbilcal History of tonsillectomy S/P fusion of thoracic spine Family History Family History (Updated 06/09/21 @ 18:33 by Kristen French MD) Father Pancreatic cancer Cancer Mother Osteoporosis Hypothyroidism Social History Social History (Updated 06/09/21 @ 18:35 by Kristen French MD) 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
[2021-06-09 19:29] LABS: Free T4 Free Thyroxine 1.43 ng/mL (0.78-2.19)
--- NOTE | 2021-06-09 19:39 | ADMGEN ---
This patient, Yang Young, was admitted to Medical Room 254-01. Patient/family oriented to hospital policies and general routines including ID bracelet, bed and alarms, visiting hours, pain management, procedures, bathroom and other care routines, personal items, smoking policy, room service/diet, and visiting hours. Information on how to activate the Rapid Response Team has been discussed. Patient/Family are encouraged to report perceived risks to care and to ask questions if they do not understand what they are told or what they should do.
[2021-06-09] MEDS: SIMVASTATIN 20 MG TABLET 40 MG PO (20:12)
[2021-06-09] MEDS: METOPROLOL TARTRATE 50 MG TAB PO (20:13)
[2021-06-09] MEDS: FAMOTIDINE 20 MG TABLET PO (20:13)
[2021-06-09] MEDS: SENNA/DOCUSATE SODIUM TABLET 2 TAB PO (20:17)
[2021-06-09 22:17] LABS: Glucose Point of Care 197 mg/dl (65-105)
[2021-06-10] VITALS (16 sets, daily range): BP systolic 100–125; BP diastolic 58–76; PULSE 72–99; RESP 14–18; TEMP 35.8–36.4; O2SAT 95–100
[2021-06-10] MEDS: oxyCODONE HCL (*CRX) 5 MG TAB IR PO ×6 (00:52→20:26)
[2021-06-10] MEDS: ACETAMINOPHEN 500 MG TABLET 1000 MG PO ×3 (05:51→18:28)
[2021-06-10] MEDS: LEVOTHYROXINE SODIUM 150 MCG TABLET PO (05:51)
[2021-06-10 05:59] LABS: Basophils Percent Auto 0.2 % (0.2-1.2); Hematocrit 33.5 % (42.0-52.0); Hemoglobin 11.2 g/dL (14.0-18.0); Immature Granulocyte Absolute 0.03 K/mm3 (0.00-0.031); Immature Granulocyte Percent A 0.3 % (0-0.5); Lymphocytes Absolute Auto 1.18 K/mm3 (0.9-3.2); Lymphocytes Percent Auto 13.5 % (18.3-44.2); Mean Corpuscular HGB Conc 33.4 g/dl (32-36); Mean Corpuscular Hemoglobin 34.4 pg (26-34); Mean Corpuscular Volume 102.8 fl (80-100); Mean Platelet Volume 11.2 fl (7.4-10.4); Monocytes Absolute Auto 1.3 K/mm3 (0.1-0.6); Neutrophils Absolute Auto 6.2 K/mm3 (1.3-6.7); Platelet Count Result 179 k/mm3 (150-375); Red Blood Count 3.26 M/mm3 (4.6-6.20); Red Cell Distribution Width 12.7 % (11.5-14.5); White Blood Count 8.8 K/mm3 (4.5-10.0)
[2021-06-10 06:08] LABS: Anion Gap 4 mmol/L (8-16); Blood Urea Nitrogen 11 mg/dL (9-20); Calcium 8.2 mg/dL (8.4-10.2); Carbon Dioxide 26 mmol/L (22-30); Chloride 104 mmol/L (98-107); Estimated CRCL calculation 89 ml/min; Estimated Glomerular Filt Rate > 60; Glucose 132 mg/dL (65-110); Sodium 134 mmol/L (137-145)
--- NOTE | 2021-06-10 06:56 | PM.PNORT ---
Subjective Subjective Date/Time Seen: 06/10/21 06:56POD 1 alert avss, NVI dressing is dry, brace is on correctly, pt has not been out of bed yet, had long discussion with pt about not trying to move leg on own-it should be moved by another person every time he tries to move, he is to keep quad muscle and hip flexors flacid to protect repair. CC will be looking into swing bed in [place] where pt was before Objective Data Vital Signs Vital Signs: Vital Signs - 24 hr 06/09/21 10:30 06/09/21 14:29 06/09/21 14:40 Temperature 36.9 C 37.2 C Pulse Rate 76 98 94 Respiratory Rate 20 10 L 16 Blood Pressure 145/72 H 133/92 H 124/90 Pulse Oximetry 98 100 100 06/09/21 14:55 06/09/21 15:10 06/09/21 15:25 Temperature Pulse Rate 81 77 81 Respiratory Rate 12 16 Blood Pressure 120/90 118/84 120/77 Pulse Oximetry 98 95 96 06/09/21 15:40 06/09/21 15:55 06/09/21 16:05 Temperature Pulse Rate 83 89 95 Respiratory Rate 14 18 18 Blood Pressure 124/82 117/80 128/89 Pulse Oximetry 96 96 96 06/09/21 16:30 06/09/21 16:45 06/09/21 17:15 Temperature 36.4 C 36.4 C 36.4 C Pulse Rate 111 H 86 123 H Respiratory Rate 18 18 18 Blood Pressure 137/69 145/92 H 129/86 Pulse Oximetry 99 98 100 06/09/21 18:15 06/09/21 20:00 06/09/21 20:13 Temperature 36.6 C Pulse Rate 115 H 90 115 H Respiratory Rate 18 16 Blood Pressure 127/77 Pulse Oximetry 96 100 06/09/21 21:18 06/10/21 00:00 06/10/21 00:50 Temperature 36.5 C 36.4 C Pulse Rate 90 91 86 Respiratory Rate 16 14 Blood Pressure 112/84 118/76 Pulse Oximetry 100 95 06/10/21 04:00 06/10/21 04:34 06/10/21 05:53 Temperature 36.4 C L Pulse Rate 85 77 Respiratory Rate 16 Blood Pressure 115/74 Pulse Oximetry 98 97 Intake/Output Intake/Output: Intake & Output 06/07/21 06/08/21 06/09/21 06/10/21 22:59 23:59 23:59 23:59 Intake Total 840 850 Output Total 850 Balance 840 0 Meds/Results Medications: Active Medications Generic Name Dose Route Start Last Admin Trade Name Freq PRN Reason Stop Dose Admin Acetaminophen 1,000 mg 06/09/21 18:00 06/10/21 05:51 Acetaminophen 500 Mg Tablet PO 1,000 mg Q6HR MADDI Administration Al Hydrox/Mg Hydrox/Simethicone 30 ml 06/09/21 16:15 Mag Hydrox/Al Hydrox/Simeth 30 Ml Udc PO Q6H PRN Indigestion Apixaban 2.5 mg 06/10/21 09:00 Apixaban 2.5 Mg Tablet PO 07/14/21 21:01 Q12HR [facility] Cephalexin HCl 500 mg 06/10/21 18:00 Cephalexin 500 Mg Capsule PO Q6HR [facility] Cyclobenzaprine HCl 10 mg 06/09/21 18:35 Cyclobenzaprine Hcl 10 Mg Tablet PO PRN PRN Muscle Spasm Dextrose 12.5 gm 06/09/21 18:54 Dextrose 50% 25 Gm/50 Ml Syringe IV PUSH PRN PRN Hypoglycemia Protocol Docusate Sodium 100 mg 06/10/21 09:00 Docusate Sodium 100 Mg Capsule PO BID [facility] Ergocalciferol 50,000 unit 06/13/21 09:00 Ergocalciferol 50,000 Unit Capsule PO Fr@0900 [facility] Famotidine 20 mg 06/09/21 21:00 06/09/21 20:13 Famotidine 20 Mg Tablet PO 20 mg Q12HR [facility] Administration Finasteride 5 mg 06/10/21 09:00 Finasteride 5 Mg Tablet PO DAILY [facility] Glucose 15 gm 06/09/21 18:54 Glucose Oral Gel 15 Gm Of Glucse In 37.5 Gm Tube PO PRN PRN Hypoglycemia Protocol Hydroxyzine HCl 50 mg 06/09/21 16:15 Hydroxyzine Hcl 25 Mg Tablet PO Q4H PRN Itching Vancomycin HCl 1,000 mg in 250 mls @ 250 mls/hr 06/09/21 23:00 06/10/21 00:01 Vancomycin 1,000 Mg/D5w 250 Ml IVPB 06/10/21 11:59 Infused Q12H [facility] Infusion Cefazolin Sodium 1 gm in 50 mls @ 100 mls/hr 06/09/21 20:00 06/10/21 04:40 Ancef 1 Gm/D5w 50 Ml Pm IVPB 06/10/21 12:29 Infused Q8H [facility] Infusion Levothyroxine Sodium 150 mcg 06/10/21 06:30 06/10/21 05:51 Levothyroxine Sodium 150 Mcg Tablet PO 150 mcg DAILY@0630 MADDI Administration Melatonin 10 mg 06/09/21 18:35 Melatonin 5 Mg Tablet PO HS PRN Insomni
[2021-06-10 07:39] LABS: Glucose Point of Care 115 mg/dl (65-105)
[2021-06-10] MEDS: METOPROLOL TARTRATE 50 MG TAB PO ×2 (08:59→20:24)
[2021-06-10] MEDS: FINASTERIDE 5 MG TABLET PO (08:59)
[2021-06-10] MEDS: MULTIVITAMINS THERAPEUTIC TAB (*BKC) 1 TABLET PO (09:01)
[2021-06-10] MEDS: APIXABAN 2.5 MG TABLET PO ×2 (09:01→20:24)
[2021-06-10] MEDS: FAMOTIDINE 20 MG TABLET PO ×2 (09:01→20:24)
[2021-06-10] MEDS: SENNA/DOCUSATE SODIUM TABLET 2 TAB PO ×2 (09:02→16:45)
[2021-06-10] MEDS: DOCUSATE SODIUM 100 MG CAPSULE PO ×2 (09:03→16:46)
[2021-06-10] MEDS: SENNOSIDES 8.6 MG TABLET PO (09:23)
--- NOTE | 2021-06-10 11:19 | WPDANESPN ---
Anes - Prog Note Post-Op Date/Time: 06/10/21 11:19 Cardiovascular status: normal Respiratory status: normal Airway patency: baseline Mental status: baseline Post-Op hydration status: normal Vital Signs: Last Vital Signs Temp 97.0 F L 06/10/21 10:15 Pulse 92 06/10/21 10:15 Resp 18 06/10/21 10:15 BP 125/67 06/10/21 10:15 Pulse Ox 100 06/10/21 10:15 Pain Score (VAS): 0 I/O: Intake & Output 06/09/21 06/10/21 06/10/21 23:59 07:59 15:59 Intake Total 290 850 360 Output Total 850 Balance 290 0 360 Laboratory Tests 06/10/21 05:15 06/10/21 05:15 06/09/21 06/09/21 06/09/21 18:16 18:16 20:23 WBC RBC Hgb Hct MCV MCH MCHC RDW Plt Count MPV Immature Gran % (Auto) Neut % (Auto) Lymph % (Auto) [place] % (Auto) Eos % (Auto) Baso % (Auto) Lymph # (Auto) [place] # (Auto) Eos # (Auto) Baso # (Auto) Abs Immat Gran (auto) Absolute Neuts (auto) Absolute Nucleated RBC Nucleated RBC % Sodium Potassium Chloride Carbon Dioxide Anion Gap BUN Creatinine Estim Creat Clear Calc Estimated GFR Glucose POC Capillary Glucose 197 H Calcium Free T4 1.43 Free T3 Pending 06/10/21 06/10/21 06/10/21 05:15 05:15 07:35 WBC 8.8 RBC 3.26 L Hgb 11.2 L Hct 33.5 L MCV 102.8 H MCH 34.4 H MCHC 33.4 RDW 12.7 Plt Count 179 MPV 11.2 H Immature Gran % (Auto) 0.3 Neut % (Auto) 71.0 Lymph % (Auto) 13.5 L [place] % (Auto) 15.0 H Eos % (Auto) 0.0 Baso % (Auto) 0.2 Lymph # (Auto) 1.18 [place] # (Auto) 1.3 H Eos # (Auto) 0.0 Baso # (Auto) 0.0 Abs Immat Gran (auto) 0.03 Absolute Neuts (auto) 6.2 Absolute Nucleated RBC 0.0 Nucleated RBC % 0.0 Sodium 134 L Potassium 4.0 Chloride 104 Carbon Dioxide 26 Anion Gap 4 L BUN 11 D Creatinine 0.80 Estim Creat Clear Calc 89 Estimated GFR > 60 Glucose 132 H POC Capillary Glucose 115 H Calcium 8.2 L Free T4 Free T3 Post-procedural complaints: none Patient Feedback: Patient satisfied with anesthetic care.
--- NOTE | 2021-06-10 14:34 | PM.IMPN ---
Progress Note: A&P Assessment and Plan (1) Status post tendon repair: Code(s): Z98.890 - Other specified postprocedural states Status: Acute (2) Afib: Code(s): I48.91 - Unspecified atrial fibrillation Status: Acute (3) BPH (benign prostatic hyperplasia): Code(s): N40.0 - Benign prostatic hyperplasia without lower urinary tract symptoms Status: Acute (4) Hypothyroidism: Code(s): E03.9 - Hypothyroidism, unspecified Status: Acute (5) HLD (hyperlipidemia): Code(s): E78.5 - Hyperlipidemia, unspecified Status: Acute (6) Prediabetes: Code(s): R73.03 - Prediabetes Status: Acute Additional Plan 76 year old male with osteoporosis, hypothyroidism, persistent atrial fibrillation, obesity, hyperlipidemia, CAD, BPH, prediabetes that is s/p Repair right quadriceps tendon rupture with acellular dermal allograft augmentation 06/09/2021 Patient admitted to [facility] Vancomycin and Ancef in light of patient's recent stay in healthcare settings Pain medication per ortho surgeon Continue home medications metoprolol for patient's persistent atrial fibrillation w 2.5 mg IV push of metoprolol p.r.n. for sustained heart rate greater than 110 Blood glucose monitoring b.i.d. while inpatient low-dose insulin sliding scale may need to be started if blood glucose elevations verified Diabetic diet PT/OT IS q2H T3T4 pending (pt would like his primary to increase Synthroid if necessary) am labs Low-dose Eliquis 2.5 mg p.o. b.i.d. per orthopedist SCD placed to nonoperative leg 06/10/2021 interval history: patient remains clinically stable he was seen by surgery service and was instructed for his activity with right lower extremity, patient work with physical therapy he was gently moved from bed to the chair we sat for a while and now is back to the bed, is feeling better denies any chest pain shortness of breath palpitation fever or chills, patient with atrial fibrillation is heart rate is stable. Thank you for allowing us to participate in the care of your patient. Subjective Date/time seen: 06/10/21 14:34 06/09/2021 interval history: Patient admitted to [facility] Vancomycin and Ancef in light of patient's recent stay in healthcare settings Pain medication per ortho surgeon Continue home medications metoprolol for patient's persistent atrial fibrillation w 2.5 mg IV push of metoprolol p.r.n. for sustained heart rate greater than 110 Blood glucose monitoring b.i.d. while inpatient low-dose insulin sliding scale may need to be started if blood glucose elevations verified Diabetic diet PT/OT IS q2H T3T4 pending (pt would like his primary to increase Synthroid if necessary) am labs Low-dose Eliquis 2.5 mg p.o. b.i.d. per orthopedist SCD placed to nonoperative leg 06/10/2021 interval history: patient remains clinically stable he was seen by surgery service and was instructed for his activity with right lower extremity, patient work with physical therapy he was gently moved from bed to the chair we sat for a while and now is back to the bed, is feeling better denies any chest pain shortness of breath palpitation fever or chills, patient with atrial fibrillation is heart rate is stable. Review of Systems Review of Systems: All systems reviewed & are unremarkable except as noted in HPI and below Exam Narrative: Patient is comfortable, NAD HEENT: eyes are clear and none icteric LUNGS: normal respiratory effort ABD: distended Lower right lower extremity in immobilizer SKIN: nonjaundiced Neuro: grossly intact. Objective Data Vital Signs Vital Signs: Vital Signs - 24 hr 06/09/21 14:40 06/09/21 14:55 06/09/21 15:10 Temperature Pulse Rate 94 81 77 Respiratory Rate 16 12 Blood Pressure 124/90 120/90 118/84 Pulse Oximetry 100 98 95 06/09/21 15:25 06/09/21 15:40 06/09/21 15:55 Temperature Pulse Rate 81 83 89 Respiratory Rate 16 14 18
--- NOTE | 2021-06-10 16:00 | PC.NURSE ---
On 06/10/21/ [employer] student Ria Candelaria assessed [facility] I have also assessed the patient and agree with the students documentation.
[2021-06-10] MEDS: CEPHALEXIN 500 MG CAPSULE PO (18:28)
[2021-06-10] MEDS: SIMVASTATIN 20 MG TABLET 40 MG PO (20:25)
[2021-06-10 20:38] LABS: Glucose Point of Care 115 mg/dl (65-105)
[2021-06-11] VITALS (11 sets, daily range): BP systolic 129–148; BP diastolic 78–97; PULSE 68–98; RESP 17–18; TEMP 36.2–36.7; O2SAT 95
[2021-06-11] MEDS: oxyCODONE HCL (*CRX) 5 MG TAB IR PO ×3 (00:36→08:09)
[2021-06-11] MEDS: ACETAMINOPHEN 500 MG TABLET 1000 MG PO ×4 (00:36→17:06)
[2021-06-11] MEDS: CEPHALEXIN 500 MG CAPSULE PO ×4 (00:36→17:06)
[2021-06-11] MEDS: LEVOTHYROXINE SODIUM 150 MCG TABLET PO (05:36)
[2021-06-11] MEDS: polyethylene glycoL 3350 17 GM POWD.PACK PO (08:08)
[2021-06-11] MEDS: FINASTERIDE 5 MG TABLET PO (08:08)
[2021-06-11] MEDS: METOPROLOL TARTRATE 50 MG TAB PO ×2 (08:08→20:15)
[2021-06-11] MEDS: APIXABAN 2.5 MG TABLET PO (08:09)
[2021-06-11] MEDS: MULTIVITAMINS THERAPEUTIC TAB (*BKC) 1 TABLET PO (08:09)
[2021-06-11] MEDS: SENNA/DOCUSATE SODIUM TABLET 2 TAB PO ×2 (08:09→17:05)
[2021-06-11] MEDS: FAMOTIDINE 20 MG TABLET PO ×2 (08:09→20:16)
--- NOTE | 2021-06-11 12:16 | PM.PNORT ---
Subjective Subjective Date/Time Seen: 06/11/21 12:16 Postop day 2. Patient is afebrile vital signs stable. He has been doing well with therapy to work on transfers. He has brace on. He has been very cautious about moving the leg and is being sure the someone is moving it for him every time. His dressing is dry. Neurovascular is intact. We are waiting on approval for him to be transferred to [place] for continued rehab. Objective Data Vital Signs Vital Signs: Vital Signs - 24 hr 06/10/21 14:00 06/10/21 16:03 06/10/21 17:57 Temperature 36.0 C L 35.8 C L Pulse Rate 75 72 85 Respiratory Rate 16 16 Blood Pressure 106/66 100/58 L Pulse Oximetry 99 99 06/10/21 20:00 06/10/21 20:14 06/10/21 20:24 Temperature 36.1 C L Pulse Rate 81 81 82 Respiratory Rate 17 Blood Pressure 108/68 Pulse Oximetry 99 06/11/21 00:00 06/11/21 04:00 06/11/21 05:26 Temperature 36.2 C L Pulse Rate 68 79 82 Respiratory Rate 18 Blood Pressure 130/78 Pulse Oximetry 95 06/11/21 08:00 06/11/21 08:08 06/11/21 08:17 Temperature Pulse Rate 95 98 Respiratory Rate Blood Pressure Pulse Oximetry 95 Intake/Output Intake/Output: Intake & Output 06/08/21 06/09/21 06/10/21 06/11/21 23:59 23:59 23:59 23:59 Intake Total 840 2840 620 Output Total 3050 2400 Balance 262 -536 -9174 Meds/Results Medications: Active Medications Generic Name Dose Route Start Last Admin Trade Name Freq PRN Reason Stop Dose Admin Acetaminophen 1,000 mg 06/09/21 18:00 06/11/21 11:10 Acetaminophen 500 Mg Tablet PO 1,000 mg Q6HR MADDI Administration Al Hydrox/Mg Hydrox/Simethicone 30 ml 06/09/21 16:15 Mag Hydrox/Al Hydrox/Simeth 30 Ml Udc PO Q6H PRN Indigestion Apixaban 2.5 mg 06/10/21 09:00 06/11/21 08:09 Apixaban 2.5 Mg Tablet PO 07/14/21 21:01 2.5 mg Q12HR MADDI Administration Cephalexin HCl 500 mg 06/10/21 18:00 06/11/21 11:10 Cephalexin 500 Mg Capsule PO 500 mg Q6HR MADDI Administration Cyclobenzaprine HCl 10 mg 06/09/21 18:35 Cyclobenzaprine Hcl 10 Mg Tablet PO PRN PRN Muscle Spasm Dextrose 12.5 gm 06/09/21 18:54 Dextrose 50% 25 Gm/50 Ml Syringe IV PUSH PRN PRN Hypoglycemia Protocol Ergocalciferol 50,000 unit 06/13/21 09:00 Ergocalciferol 50,000 Unit Capsule PO Fr@0900 [facility] Famotidine 20 mg 06/09/21 21:00 06/11/21 08:09 Famotidine 20 Mg Tablet PO 20 mg Q12HR MADDI Administration Finasteride 5 mg 06/10/21 09:00 06/11/21 08:08 Finasteride 5 Mg Tablet PO 5 mg DAILY [facility] Administration Glucose 15 gm 06/09/21 18:54 Glucose Oral Gel 15 Gm Of Glucse In 37.5 Gm Tube PO PRN PRN Hypoglycemia Protocol Hydroxyzine HCl 50 mg 06/09/21 16:15 Hydroxyzine Hcl 25 Mg Tablet PO Q4H PRN Itching Levothyroxine Sodium 150 mcg 06/10/21 06:30 06/11/21 05:36 Levothyroxine Sodium 150 Mcg Tablet PO 150 mcg DAILY@0630 [facility] Administration Melatonin 10 mg 06/09/21 18:35 Melatonin 5 Mg Tablet PO HS PRN Insomnia Metoprolol Tartrate 50 mg 06/09/21 21:00 06/11/21 08:08 Metoprolol Tartrate 50 Mg Tab PO 50 mg Q12HR MADDI Administration Metoprolol Tartrate 2.5 mg 06/09/21 18:57 Metoprolol Tartrate Inj 5 Mg/5 Ml Vial IV PUSH Q4HR PRN Tachycardia >110 sustained Morphine Sulfate 2 mg 06/09/21 16:15 Morphine Sulfate (*Crx) 2 Mg/Ml Inj IV PUSH Q3H PRN Pain Rated 7-10 Multivitamins Therapeutic 1 tablet 06/10/21 09:00 06/11/21 08:09 Multivitamins Therapeutic Tab (*Bkc) PO 1 tablet DAILY MADDI Administration Naloxone HCl 0.1 mg 06/09/21 16:15 Naloxone Hcl 0.4 Mg/Ml Vial IV PUSH Q2M PRN Opiate Reversal Oxycodone HCl 5 mg 06/09/21 17:00 06/11/21 08:09 Oxycodone Hcl (*Crx) 5 Mg Tab Ir PO 5 mg Q4HR MADDI Administration Oxycodone HCl 5 mg 06/09/21 16:15 Oxycodone Hcl (*Crx) 5 Mg Tab Ir PO
--- NOTE | 2021-06-11 12:25 | PM.DS ---
DS: Admitting Diagnosis Discharge Date 06/11 Admitting Diagnosis Chronic right quadriceps tendon tear DS: Summary Hospital Course Hospital Course: Stable Time Spent with Patient Time attestation: Total time spent providing and/or coordinating discharge services: 76-year-old male who underwent right quadriceps tendon repair on 06/09. Underwent procedure without complications. Postoperatively he has been afebrile, vital signs are stable. He has been in a long leg brace locked in extension. he is strict nonweightbearing. He is to have the leg completely supported when he is trying to move it. We have asked at therapy as well as nursing hold the foot allow the patient to relax his quad while he was moving the leg to protect the repair. This was a chronic quad tear and we do not want patient firing his quad muscle at all to pull on this repair. He was initially placed on Eliquis 2.5 mg postoperatively and at this point on 06/11 he will resume his normal dosing of 5 mg b.i.d. for his chronic AFib. His is going to be transferred to [facility] bed for continued care. He is having no real pain at this point and is only taking Tylenol. Patient was advised it is extremely important for him to be very compliant with the orders regard to his leg so he does not risk we tearing the repair. He is understanding of this. All this was also discussed with his who is here today on 06/11. Is scheduled to see us in the office in about a week and a half and we will see him at that time. DS: Data Data Completed and Pending Labs on day of discharge: Labs from last 24 hours 06/10/21 20:23 POC Capillary Glucose 115 H Discharge Plan Discharge Attending physician on discharge: Gatito Nguyen Consulting providers: Kristen French Discharging Clinician: Lucio Ackerman Anticipated Discharge Date/Time: 06/11/21 12:18 Patient Disposition: Hospital Swing Bed Activity: no shower Diet: as tolerated Wound Care Instructions: other - see discharge instructions Discharge Instructions: Give patient additional dressing and this is to be changed next Wednesday and then maintained till seen in the office. Patient is to wear knee brace on right leg full-time. Right foot should be supported when the patient moves leg. He has not moved the leg on his own. He is not to fire his quad muscle. Please place sign on bed stating this. Patient is bed to chair transfer only, nonweightbearing. Patient Instructions: Antibiotic Form Stand Alone Forms: General Discharge Information Discharge Medications: New sennosides-docusate sodium [Senokot-S] 8.6-50 mg Tablet 2 tab PO BID Qty: 60 RF: 0 polyethylene glycol 3350 [Miralax] 17 gram Powder In Packet 17 g PO QAM Qty: 30 RF: 0 cephalexin 500 mg Capsule 500 mg PO Q6HR Qty: 44 RF: 0 acetaminophen 500 mg Tablet 1,000 mg PO Q6HR Qty: 90 RF: 0 Continued multivitamin Tablet 1 tablet PO DAILY RF: 0 polyethylene glycol 3350 17 gram Powder In Packet 17 g PO PRN PRN (Reason: Constipation) RF: 0 simvastatin [Zocor] 40 mg Tablet 40 mg PO HS RF: 0 ergocalciferol (vitamin D2) 50,000 unit Tablet 50,000 unit PO WEEKLY RF: 0 levothyroxine [Synthroid] 150 mcg Tablet 150 mcg PO DAILY RF: 0 finasteride [Proscar] 5 mg Tablet 5 mg PO DAILY RF: 0 metoprolol tartrate 50 mg tablet 50 mg PO BID RF: 0 Eliquis 5 mg tablet 5 mg PO BID RF: 0 melatonin 10 mg Tablet 10 mg PO HS PRN (Reason: Insomnia) RF: 0 Discontinued sennosides [Senokot] 8.6 mg Tablet 8.6 mg PO DAILY RF: 0 acetaminophen 650 mg Tablet 650 mg PO Q6H PRN (Reason: Pain (Scale Score 4-6)) RF: 0 docusate sodium 100 mg Capsule 100 mg PO BID RF: 0 cyclobenzaprine 10 mg tablet 10 mg PO PRN PRN (Reason: Muscle Spasm) RF: 0 Date of admission: 06/10/21 17:14 Primary Care Provider: Doug,Arsh Ames Admitting Provider: Gatito Nguyen
--- NOTE | 2021-06-11 13:01 | PM.IMPN ---
Progress Note: A&P Additional Plan 76 year old male with osteoporosis, hypothyroidism, persistent atrial fibrillation, obesity, hyperlipidemia, CAD, BPH, prediabetes that is s/p Repair right quadriceps tendon rupture with acellular dermal allograft augmentation 06/09/2021 Patient admitted to [facility] floor Vancomycin and Ancef in light of patient's recent stay in healthcare settings Pain medication per ortho surgeon Continue home medications metoprolol for patient's persistent atrial fibrillation w 2.5 mg IV push of metoprolol p.r.n. for sustained heart rate greater than 110 Blood glucose monitoring b.i.d. while inpatient low-dose insulin sliding scale may need to be started if blood glucose elevations verified Diabetic diet PT/OT IS q2H T3T4 pending (pt would like his primary to increase Synthroid if necessary) am labs Low-dose Eliquis 2.5 mg p.o. b.i.d. per orthopedist SCD placed to nonoperative leg 06/10/2021 interval history: patient remains clinically stable he was seen by surgery service and was instructed for his activity with right lower extremity, patient work with physical therapy he was gently moved from bed to the chair we sat for a while and now is back to the bed, is feeling better denies any chest pain shortness of breath palpitation fever or chills, patient with atrial fibrillation is heart rate is stable. 06/11/2021 interval history: patient remains clinically stable he was seen by surgery service and was instructed for his activity with right lower extremity, patient worked with physical therapy he was gently moved from bed to the chair currently sitting in chair, Patient is feeling better denies any chest pain shortness of breath palpitation fever or chills, patient with atrial fibrillation is heart rate is stable. Thank you for allowing us to participate in the care of your patient. Subjective Date/time seen: 06/11/21 13:01 06/10/2021 interval history: patient remains clinically stable he was seen by surgery service and was instructed for his activity with right lower extremity, patient work with physical therapy he was gently moved from bed to the chair we sat for a while and now is back to the bed, is feeling better denies any chest pain shortness of breath palpitation fever or chills, patient with atrial fibrillation is heart rate is stable. 06/11/2021 interval history: patient remains clinically stable he was seen by surgery service and was instructed for his activity with right lower extremity, patient worked with physical therapy he was gently moved from bed to the chair currently sitting in chair, Patient is feeling better denies any chest pain shortness of breath palpitation fever or chills, patient with atrial fibrillation is heart rate is stable. Review of Systems Review of Systems: All systems reviewed & are unremarkable except as noted in HPI and below Exam Narrative: Patient is comfortable, NAD HEENT: eyes are clear and none icteric LUNGS: normal respiratory effort ABD: distended Lower right lower extremity in immobilizer SKIN: nonjaundiced Neuro: grossly intact. Objective Data Vital Signs Vital Signs: Vital Signs - 24 hr 06/10/21 14:00 06/10/21 16:03 06/10/21 17:57 Temperature 96.8 F L 96.5 F L Pulse Rate 75 72 85 Respiratory Rate 16 16 Blood Pressure 106/66 100/58 L Pulse Oximetry 99 99 06/10/21 20:00 06/10/21 20:14 06/10/21 20:24 Temperature 97.0 F L Pulse Rate 81 81 82 Respiratory Rate 17 Blood Pressure 108/68 Pulse Oximetry 99 06/11/21 00:00 06/11/21 04:00 06/11/21 05:26 Temperature 97.2 F L Pulse Rate 68 79 82 Respiratory Rate 18 Blood Pressure 130/78 Pulse Oximetry 95 06/11/21 08:00 06/11/21 08:08 06/11/21 08:17 Temperature Pulse Rate 95 98 Respiratory Rate Blood Pressure Pulse Oximetry 95 Intake/Output Intake/Output: Intake & Output 06/08/21 06/09/21 06/10/21 06/11/21 23:59 23:59 23:
--- NOTE | 2021-06-11 14:24 | PC.NURSE ---
Report called to CELESTINO Ortiz at [facility]. Awaiting ambulance arrival.
[2021-06-11 14:49] LABS: EDCOVIDSCREEN Negative (Negative)
[2021-06-11 15:09] LABS: Glucose Point of Care 135 mg/dl (65-105)
[2021-06-11] MEDS: SIMVASTATIN 20 MG TABLET 40 MG PO (20:15)
[2021-06-11] MEDS: APIXABAN 5 MG TABLET PO (20:16)
[2021-06-11 22:13] LABS: Glucose Point of Care 121 mg/dl (65-105)
[2021-06-12 05:46] LABS: Triiodothyronine T3 Free 2.7 pg/mL (2.3-4.2)
== END 2021-06-11 20:47 | disposition swing bed (61) ==
LOC: ANHSURGERY 17:17 → ANH2MED 17:17
PROVIDERS: Family Medicine; Hospitalist; Physician Assistant Surgical; Admitting Provider Orthopaedic Surgery; PCP Internal Medicine; Visit Provider Orthopaedic Surgery
PROC: (CPT 27385; principal; 2021-06-09 12:00)
DX: S76.111A Strain of right quadriceps muscle, fascia and tendon, initial encounter (principal); W10.9XXA Fall (on) (from) unspecified stairs and steps, initial encounter; I48.91 Unspecified atrial fibrillation; N40.0 Benign prostatic hyperplasia without lower urinary tract symptoms; E03.9 Hypothyroidism, unspecified; E78.5 Hyperlipidemia, unspecified; R73.03 Prediabetes; I25.9 Chronic ischemic heart disease, unspecified; M81.0 Age-related osteoporosis without current pathological fracture; I48.19 Other persistent atrial fibrillation; I25.10 Atherosclerotic heart disease of native coronary artery without angina pectoris; E66.9 Obesity, unspecified; Z68.33 Body mass index [BMI] 33.0-33.9, adult; Z20.822 Contact with and (suspected) exposure to COVID-19; Z85.820 Personal history of malignant melanoma of skin; Z87.891 Personal history of nicotine dependence; Z79.01 Long term (current) use of anticoagulants
CPT/HCPCS: 27385; 36415; 73721; 80048; 82948; 84439; 84481; 85025; 87070; 87147; 87181; 87186; 87426; 97162; 97166; 97530; 97535; A9270; C1713; C9803; G0378; J0690; J1100; J1885; J2250; J2370; J2405; J2704; J3010; J3370; J7120

== ENCOUNTER 2021-06-11 21:21 | Inpatient (IN) | payer MEDICARE, SELFPAY ==
--- NOTE | ~2021-06-11 | XR_ITS ---
EXAMINATION: XR chest 1V portable 06/14/2021 08:12 INDICATION: Vomiting PROCEDURE: AP portable chest COMPARISON: No prior studies for comparison. FINDINGS: The lungs are clear. The cardiomediastinal silhouette is within normal limits. There are no pleural effusions. There is no pneumothorax suspected. There are spinal rods overlying the mid a nd lower thoracic spine. IMPRESSION: 1: NO ACUTE CARDIOPULMONARY DISEASE. Reviewed, dictated and finalized at location A.
--- NOTE | 2021-06-11 22:26 | PC.NURSE ---
Patient admitted to room 204 per stretcher, is non ambulatory, alert and oriented times 4, denies pain, call light in reach.
[2021-06-11 22:29] VITALS: BMI 31.6
[2021-06-11 23:59] VITALS: BP 127/93; PULSE 73; RESP 20; TEMP 35.8; O2SAT 96
[2021-06-12] MEDS: ACETAMINOPHEN 500 MG TABLET 1000 MG PO ×5 (01:56→23:53)
[2021-06-12] MEDS: CEPHALEXIN 500 MG CAPSULE PO ×5 (01:57→23:53)
[2021-06-12] MEDS: LEVOTHYROXINE SODIUM 75 MCG TABLET 150 MCG PO (06:04)
[2021-06-12 07:43] VITALS: BP 134/89; PULSE 86; RESP 18; TEMP 36.4; O2SAT 96
[2021-06-12 07:43] LABS: Glucose Point of Care 117 mg/dl (65-105)
[2021-06-12] MEDS: APIXABAN 2.5 MG TABLET 5 MG PO ×2 (08:47→17:25)
[2021-06-12] MEDS: MULTIVITAMINS THERAPEUTIC TAB (*BKC) 1 TABLET PO (08:47)
[2021-06-12] MEDS: FINASTERIDE 5 MG TABLET PO (08:47)
[2021-06-12 08:48] VITALS: PULSE 86
[2021-06-12] MEDS: polyethylene glycoL 3350 17 GM POWD.PACK PO (08:48)
[2021-06-12] MEDS: METOPROLOL TARTRATE 50 MG TAB PO ×2 (08:48→20:59)
[2021-06-12] MEDS: SENNA/DOCUSATE SODIUM TABLET 2 TAB PO (08:48)
--- NOTE | 2021-06-12 11:20 | PM.IMHP ---
H&P: HPI History of Present Illness Date/Time: 06/12/21 11:20 This is a 76-year-old male who had a right quadricep tendon repair on 314 without complications. Patient's been with a long brace he is strict nonweightbearing and needs his leg supported while trying to move. Patient is here as a swing patient he will see therapy. Mr. Young originally had an injury on April 24, 2021. When he was found to have the right knee and a severe unstable T9 vertebral body fracture he was transferred to [facility] and on the he had underwent a posterior fusion with instrument. Patient has been in a T SLO since the surgery and had quadricep repair 6 and half weeks after it was injured. Patient is unable to bear weight and has severe quadricep weakness prior to surgery. Mr. Young has a old rib fracture. Mr. Young prior to commons labs was potassium 4.0, sodium 134, BUN 11, creatinine 0.80, hemoglobin 11.2, hematocrit 33.5% cholesterol 147, platelet count 179, patient's hemoglobin A1c is 5.8. Mr. Young has a history of A. fib and postoperative encephalopathy although he is alert and oriented x3 with no signs of any neurological disorders patient has good pulses no shortness of breath no nausea no vomiting diarrhea he is able to eat and drink without any difficulties at this time as I am seeing patient. Patient is able to work with therapy and willing although with just him and his as she just had surgery he is requiring a lot of assistance that she may not be able to assist with at this time. Chief Complaint: REhab , Weakness , Tendon repair Review of Systems Review of Systems: Right leg and back weakness All systems reviewed & are unremarkable except as noted in HPI and below [facility] Past Medical History Medical History Acute encephalopathy Afib BPH (benign prostatic hyperplasia) Cardiac dysrhythmia Chronic ischemic heart disease Diverticula of colon HLD (hyperlipidemia) Hypothyroidism Malignant melanoma neck Prediabetes Rib fracture Scoliosis of thoracic spine Swollen R knee Surgical History Surgical History H/O hernia repair b/l inguinal and umbilcal History of tonsillectomy S/P fusion of thoracic spine Family History Family History Father Pancreatic cancer Cancer Mother Osteoporosis Hypothyroidism Social History Social History 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, 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 Smoking packs per day: 1 Smoking cigarettes per day: 20.0 Years smoked: 12 Smoking pack-years: 12.00 Smoking status: Never smoker Tobacco type: cigarettes Second hand tobacco smoke exposure: No Smoking end date: 03/29/76 Alcohol intake: current Drinks per week: 5 Substance use: never Spiritual care concerns: No Meds Home Medications and Allergies Home Medications Medication Instructions Recorded Confirmed Type ergocalciferol (vitamin D2) 50,000 unit PO WEEKLY 05/08/21 06/11/21 History finasteride [Proscar] 5 mg PO DAILY 05/08/21 06/11/21 History levothyroxine [Synthroid] 150 mcg PO DAILY 05/08/21 06/11/21 History multivitamin 1 tablet PO DAILY 05/08/21 06/11/21 History polyethylene glycol 3350 17 g PO PRN PRN 05/08/21 06/11/21 History simvastatin [Zocor] 40 mg PO HS 05/08/21 06/11/21 History Eliquis 5 mg PO BID 06/06/21 06/11/21 History melatonin 10 mg PO HS PRN 06/06/21 06/11/21 History metoprolol tartrate 50 mg PO BID 06/06/21 06/11/21 History acetaminophen 1,000 mg PO Q6HR #90 tablet 06/11/21 06/11/21 Rx cephalexin 500 mg PO Q6HR #44 cap 06/11/21 06/11/21 Rx polyethylene glycol 3350 [Miralax] 17 g PO QAM #30 ea 06/11/21 06/11/21 Rx sennosides-docusate sodium 2 tab PO BID #60 tablet 06/11/21 06/11/21 Rx [Senokot-S] Allergies Allergy/AdvRe
[2021-06-12 16:00] VITALS: BP 143/83; PULSE 90; RESP 18; TEMP 36.3; O2SAT 97
[2021-06-12] MEDS: SIMVASTATIN 10 MG TABLET 40 MG PO (20:58)
[2021-06-12 20:59] VITALS: PULSE 84
[2021-06-13] VITALS: BP 125/87; PULSE 90; RESP 16; TEMP 36.4; O2SAT 97
[2021-06-13] MEDS: LEVOTHYROXINE SODIUM 75 MCG TABLET 150 MCG PO (06:04)
[2021-06-13] MEDS: ACETAMINOPHEN 500 MG TABLET 1000 MG PO ×3 (06:04→16:51)
[2021-06-13] MEDS: CEPHALEXIN 500 MG CAPSULE PO ×3 (06:04→16:51)
[2021-06-13 08:00] VITALS: BP 136/94; PULSE 98; RESP 18; TEMP 36.2; O2SAT 97
[2021-06-13 08:25] VITALS: PULSE 98
[2021-06-13] MEDS: METOPROLOL TARTRATE 50 MG TAB PO ×2 (08:25→20:58)
[2021-06-13] MEDS: ERGOCALCIFEROL 50,000 UNIT CAPSULE 50000 UNITS PO (08:25)
[2021-06-13] MEDS: APIXABAN 2.5 MG TABLET 5 MG PO ×2 (08:25→16:50)
[2021-06-13] MEDS: MULTIVITAMINS THERAPEUTIC TAB (*BKC) 1 TABLET PO (08:25)
[2021-06-13] MEDS: FINASTERIDE 5 MG TABLET PO (08:26)
[2021-06-13 16:00] VITALS: BP 140/78; PULSE 94; RESP 17; TEMP 36.3; O2SAT 97
[2021-06-13 20:58] VITALS: PULSE 72
[2021-06-13] MEDS: SIMVASTATIN 10 MG TABLET 40 MG PO (20:59)
[2021-06-13] MEDS: MAG HYDROX/AL HYDROX/SIMETH 30 ML UDC PO (23:34)
[2021-06-14] VITALS: BP 141/89; PULSE 72; RESP 20; TEMP 36.2; O2SAT 94
[2021-06-14] MEDS: ACETAMINOPHEN 500 MG TABLET 1000 MG PO ×2 (00:19→23:28)
[2021-06-14] MEDS: CEPHALEXIN 500 MG CAPSULE PO ×3 (00:20→18:30)
[2021-06-14] MEDS: ONDANSETRON HCL ODT 4 MG TABLET PO (01:27)
--- NOTE | 2021-06-14 02:25 | PC.NURSE ---
Lying with washcloth over forehead and eyes, no distress noted.
[2021-06-14] MEDS: LEVOTHYROXINE SODIUM 75 MCG TABLET 150 MCG PO (06:13)
[2021-06-14 08:00] VITALS: BP 136/96; PULSE 84; RESP 18; TEMP 36.1; O2SAT 94
[2021-06-14 08:29] LABS: Hematocrit 37.6 % (37.0-46.0); Hemoglobin 12.7 g/dL (12.4-15.3); Mean Corpuscular HGB Conc 33.8 g/dL (32.0-36.0); Mean Corpuscular Volume 100.8 fL (78.0-102.0); Mean Platelet Volume 10.4 fl (8.7-11.0); Platelet Count Result 238 K/mm3 (150-420); Red Blood Count 3.73 M/mm3 (4.70-6.10); Red Cell Distribution Width 12.6 % (11.6-14.4); White Blood Count 10.4 K/mm3 (4.8-10.8)
[2021-06-14 08:51] LABS: Anion Gap 9 mmol/L (8-16); Blood Urea Nitrogen 11 mg/dL (7-18); Calcium 8.6 mg/dL (8.5-10.1); Carbon Dioxide 26 mmol/L (21-32); Chloride 100 mmol/L (98-108); Estimated CRCL calculation 101 ml/min; Estimated Glomerular Filt Rate > 60; Glucose 125 mg/dL (70-99); Osmolality Calculated 280 mOsm/kg (285-295); Potassium 4.3 mmol/L (3.5-5.1); Sodium 135 mmol/L (136-145)
[2021-06-14 08:55] LABS: Magnesium 1.5 mg/dL (1.8-2.4); Troponin I 30.5 ng/L (0.00-60.4)
--- NOTE | 2021-06-14 09:02 | PC.NURSE ---
0800 claims he did not want to get up this am. still not feeling just right since being n/v off and on all night. just wants to rest at this time. cool cloth to forehead. does not want breakfast or meds at this time.
[2021-06-14 09:12] VITALS: PULSE 84
[2021-06-14] MEDS: METOPROLOL TARTRATE 50 MG TAB PO ×2 (09:12→20:59)
[2021-06-14] MEDS: APIXABAN 2.5 MG TABLET 5 MG PO ×2 (09:12→16:44)
--- NOTE | 2021-06-14 12:14 | PM.EVENT ---
Event Note Event Note Event Note: Patient has not been feeling well nauseated with some vomiting noted. Pt given DAVIE last night I had labs drawn this morning. Chest xray negative NA 135,WBC 10.4, BUN11, Cre 0.72 Patient Protonix although seems not to have helped much we will attempt a gi cocktail.
[2021-06-14] MEDS: MAGNESIUM OXIDE 400 MG TABLET PO (12:55)
[2021-06-14] MEDS: MAG HYDROX/ALUMINUM HYD/SIMETH 30 ML, PHENobarb/HYOSCY/ATROPINE/SCOP 32.4 MG, LIDOCAINE... PO (12:55)
[2021-06-14 15:29] VITALS: BP 137/88; PULSE 91; RESP 16; TEMP 36.2; O2SAT 96
[2021-06-14] MEDS: SIMVASTATIN 10 MG TABLET 40 MG PO (20:58)
[2021-06-14 20:59] VITALS: PULSE 88
[2021-06-14 23:31] VITALS: BP 132/91; PULSE 77; RESP 20; TEMP 36; O2SAT 95
[2021-06-15] MEDS: LEVOTHYROXINE SODIUM 75 MCG TABLET 150 MCG PO (06:15)
[2021-06-15] MEDS: LEVOTHYROXINE SODIUM 75 MCG TABLET (06:30)
[2021-06-15 08:00] VITALS: BP 129/89; PULSE 85; RESP 20; TEMP 36.4; O2SAT 98
[2021-06-15] MEDS: ACETAMINOPHEN 500 MG TABLET 1000 MG PO ×3 (08:07→17:00)
[2021-06-15] MEDS: CEPHALEXIN 500 MG CAPSULE PO ×3 (08:07→17:00)
[2021-06-15] MEDS: APIXABAN 2.5 MG TABLET 5 MG PO ×2 (08:45→17:00)
[2021-06-15] MEDS: SENNA/DOCUSATE SODIUM TABLET 2 TAB PO ×2 (08:45→16:59)
[2021-06-15] MEDS: MULTIVITAMINS THERAPEUTIC TAB (*BKC) 1 TABLET PO (08:45)
[2021-06-15 08:46] VITALS: PULSE 81
[2021-06-15] MEDS: MAGNESIUM OXIDE 400 MG TABLET PO (08:46)
[2021-06-15] MEDS: FINASTERIDE 5 MG TABLET PO (08:46)
[2021-06-15] MEDS: polyethylene glycoL 3350 17 GM POWD.PACK PO (08:46)
[2021-06-15] MEDS: METOPROLOL TARTRATE 50 MG TAB PO ×2 (08:46→20:55)
[2021-06-15 16:00] VITALS: BP 124/88; PULSE 90; RESP 18; TEMP 36.3; O2SAT 96
--- NOTE | 2021-06-15 17:03 | PC.NURSE ---
pt requests to only take one of his tylenol pills, other returned to [facility]
[2021-06-15 20:55] VITALS: PULSE 72
[2021-06-15] MEDS: SIMVASTATIN 10 MG TABLET 40 MG PO (21:00)
[2021-06-16] VITALS: BP 142/80; PULSE 100; RESP 18; TEMP 36.1; O2SAT 96
[2021-06-16] MEDS: MAG HYDROX/AL HYDROX/SIMETH 30 ML UDC PO (03:39)
[2021-06-16] MEDS: LEVOTHYROXINE SODIUM 75 MCG TABLET 150 MCG PO (06:10)
[2021-06-16] MEDS: ONDANSETRON HCL ODT 4 MG TABLET PO (06:12)
[2021-06-16] MEDS: CEPHALEXIN 500 MG CAPSULE PO (06:45)
[2021-06-16 08:00] VITALS: BP 126/90; PULSE 93; RESP 14; TEMP 36.4; O2SAT 97
[2021-06-16] MEDS: APIXABAN 2.5 MG TABLET 5 MG PO ×2 (09:10→17:35)
[2021-06-16] MEDS: PROCHLORPERAZINE MALEATE 5 MG TABLET PO (09:14)
[2021-06-16 09:15] VITALS: PULSE 93
[2021-06-16] MEDS: METOPROLOL TARTRATE 50 MG TAB PO ×2 (09:15→20:38)
--- NOTE | 2021-06-16 10:13 | PM.EVENT ---
Event Note Event Note Event Note: Started patient on some Compazine to see if that helped with the nasusea
--- NOTE | 2021-06-16 11:58 | PCPTNOTE ---
Attempted to see patient but nursing putting pt back to bed after using commode complaining of having diarhea and refusing due to feeling ill.
[2021-06-16 16:35] VITALS: BP 126/82; PULSE 86; RESP 18; TEMP 36.5; O2SAT 94
--- NOTE | 2021-06-16 17:04 | PCOTNOTE ---
On 06/16/21, the student, [Racquel Copeland ], provided care and completed [facility] documentation on this patient. I have reviewed the student's documentation and agree with the findings.
[2021-06-16] MEDS: SENNA/DOCUSATE SODIUM TABLET 2 TAB PO (17:36)
--- NOTE | 2021-06-16 17:40 | PC.NURSE ---
Patient refused 1800 dose of cephalexin, states he thinks that is what is making him nauseous. States he would like to ask [employer] Kasa in the morning if medication can be changed to something he can tolerate. Charge nurse Jacinta Notified.
[2021-06-16 20:38] VITALS: PULSE 88
[2021-06-16] MEDS: SIMVASTATIN 10 MG TABLET 40 MG PO (20:38)
[2021-06-17] VITALS: BP 133/88; PULSE 83; RESP 16; TEMP 36.2; O2SAT 97
[2021-06-17] MEDS: LEVOTHYROXINE SODIUM 75 MCG TABLET 150 MCG PO (06:16)
[2021-06-17 08:00] VITALS: BP 121/98; PULSE 98; RESP 14; TEMP 36.3; O2SAT 94
[2021-06-17] MEDS: FINASTERIDE 5 MG TABLET PO (09:14)
[2021-06-17] MEDS: MAGNESIUM OXIDE 400 MG TABLET PO (09:14)
[2021-06-17 09:15] VITALS: PULSE 93
[2021-06-17] MEDS: METOPROLOL TARTRATE 50 MG TAB PO ×2 (09:15→21:06)
[2021-06-17] MEDS: APIXABAN 2.5 MG TABLET 5 MG PO ×2 (09:15→16:52)
--- NOTE | 2021-06-17 09:15 | PM.EVENT ---
Event Note Event Note Event Note: CALL PLACED TO DR. CASTANON OFFICE PATIENT IS HAVING STOMACH UPSET FROM THE KEFLEX. CALL PLACED TO SEE IF THERE CAN BE A CHANGE DUE TO PATIENT IS REFUSING AT THIS POINT DUE TO IT MAKES HIM TO NAUSEATED
--- NOTE | 2021-06-17 11:00 | PM.EVENT ---
Event Note Event Note Event Note: Patient has been refusing medication for the past two day. I did place a phone call into his ortho docotor and i changed his medication to amoxicillin and if ortho approves will keep or we will changed to whatever their recommendation is.
[2021-06-17 15:47] VITALS: BP 121/70; PULSE 90; RESP 16; TEMP 36.5; O2SAT 97
--- NOTE | 2021-06-17 15:51 | PC.NURSE ---
at bedside, no current needs, no c/o pain. Ice water refilled. All belongings in reach.
--- NOTE | 2021-06-17 16:23 | PC.NURSE ---
Received call from Dr. Galvan's assistant health educator concerning Keflex upsetting patient's stomach. Dr. Galvan stated to discontinue Keflex.
[2021-06-17] MEDS: SENNA/DOCUSATE SODIUM TABLET 2 TAB PO (16:53)
[2021-06-17] MEDS: AMOXICILLIN 500 MG CAPSULE PO (16:53)
[2021-06-17] MEDS: ACETAMINOPHEN 500 MG TABLET 1000 MG PO ×2 (17:00→23:24)
--- NOTE | 2021-06-17 17:14 | PCOTNOTE ---
On 06/17/21, the student, [Racquel Copeland], provided care and completed [facility] documentation on this patient. I have reviewed the student's documentation and agree with the findings.
--- NOTE | 2021-06-17 20:22 | PC.NURSE ---
Hospitalist notified that Dr. Galvan's office called back and stated to stop the Keflex. No new antibiotic ordered. Hui Fabian NP stated to d/c Amoxil order.
[2021-06-17 21:06] VITALS: PULSE 92
[2021-06-17] MEDS: SIMVASTATIN 10 MG TABLET 40 MG PO (21:07)
[2021-06-17 23:27] VITALS: BP 126/84; PULSE 92; RESP 20; TEMP 36.2; O2SAT 95
[2021-06-18] MEDS: ACETAMINOPHEN 500 MG TABLET 1000 MG PO ×3 (05:37→23:32)
[2021-06-18] MEDS: LEVOTHYROXINE SODIUM 75 MCG TABLET 150 MCG PO (05:38)
[2021-06-18 08:00] VITALS: BP 148/82; PULSE 90; RESP 14; TEMP 36.3; O2SAT 93
[2021-06-18] MEDS: APIXABAN 2.5 MG TABLET 5 MG PO ×2 (08:40→16:13)
[2021-06-18 08:49] VITALS: PULSE 90
[2021-06-18] MEDS: METOPROLOL TARTRATE 50 MG TAB PO ×2 (08:49→20:34)
[2021-06-18] MEDS: FINASTERIDE 5 MG TABLET PO (08:49)
[2021-06-18] MEDS: ONDANSETRON HCL ODT 4 MG TABLET PO (08:49)
--- NOTE | 2021-06-18 09:12 | PCOTNOTE ---
On 06/18/21, the student, [Racquel Copeland ], provided care and completed [facility] documentation on this patient. I have reviewed the student's documentation and agree with the findings.
--- NOTE | 2021-06-18 15:13 | PC.NURSE ---
Resting in bed. No distress. No complaints. No wants/needs at this time.
[2021-06-18 16:00] VITALS: BP 120/80; PULSE 86; RESP 16; TEMP 36.8; O2SAT 98
[2021-06-18] MEDS: SENNA/DOCUSATE SODIUM TABLET 2 TAB PO (16:14)
[2021-06-18] MEDS: polyethylene glycoL 3350 17 GM POWD.PACK PO (17:10)
[2021-06-18 20:34] VITALS: PULSE 86
[2021-06-18] MEDS: SIMVASTATIN 10 MG TABLET 40 MG PO (20:34)
[2021-06-18 23:45] VITALS: BP 120/85; PULSE 86; RESP 20; TEMP 36; O2SAT 97
[2021-06-19 04:59] LABS: Hemoglobin 12.1 g/dL (12.4-15.3); Mean Corpuscular HGB Conc 32.7 g/dL (32.0-36.0); Mean Corpuscular Hemoglobin 32.9 pg (27.0-31.0); Mean Corpuscular Volume 100.5 fL (78.0-102.0); Mean Platelet Volume 9.9 fl (8.7-11.0); Platelet Count Result 262 K/mm3 (150-420); Red Blood Count 3.68 M/mm3 (4.70-6.10); Red Cell Distribution Width 12.3 % (11.6-14.4); White Blood Count 5.5 K/mm3 (4.8-10.8)
[2021-06-19 05:09] LABS: Anion Gap 7 mmol/L (8-16); Blood Urea Nitrogen 14 mg/dL (7-18); Calcium 8.5 mg/dL (8.5-10.1); Carbon Dioxide 27 mmol/L (21-32); Chloride 100 mmol/L (98-108); Estimated CRCL calculation 89 ml/min; Estimated Glomerular Filt Rate > 60; Glucose 112 mg/dL (70-99); Magnesium 2.1 mg/dL (1.8-2.4); Osmolality Calculated 279 mOsm/kg (285-295); Potassium 4.1 mmol/L (3.5-5.1); Sodium 134 mmol/L (136-145)
[2021-06-19] MEDS: ACETAMINOPHEN 500 MG TABLET 1000 MG PO ×4 (05:35→23:59)
[2021-06-19] MEDS: LEVOTHYROXINE SODIUM 75 MCG TABLET 150 MCG PO (05:35)
[2021-06-19 08:00] VITALS: BP 130/80; PULSE 82; RESP 20; TEMP 36.8; O2SAT 96
[2021-06-19] MEDS: polyethylene glycoL 3350 17 GM POWD.PACK PO (08:51)
[2021-06-19 08:52] VITALS: PULSE 82
[2021-06-19] MEDS: METOPROLOL TARTRATE 50 MG TAB PO ×2 (08:52→22:11)
[2021-06-19] MEDS: APIXABAN 2.5 MG TABLET 5 MG PO ×2 (08:52→17:08)
[2021-06-19] MEDS: FINASTERIDE 5 MG TABLET PO (08:52)
[2021-06-19] MEDS: MAGNESIUM OXIDE 400 MG TABLET PO (08:52)
[2021-06-19] MEDS: SENNA/DOCUSATE SODIUM TABLET 2 TAB PO ×2 (08:52→17:07)
[2021-06-19] MEDS: MULTIVITAMINS THERAPEUTIC TAB (*BKC) 1 TABLET PO (08:53)
[2021-06-19 16:00] VITALS: BP 130/90; PULSE 82; RESP 18; TEMP 36.6; O2SAT 95
[2021-06-19 22:11] VITALS: PULSE 85
[2021-06-19] MEDS: SIMVASTATIN 10 MG TABLET 40 MG PO (22:11)
[2021-06-20] VITALS: BP 119/90; PULSE 77; RESP 20; TEMP 36.1; O2SAT 97
[2021-06-20] MEDS: ACETAMINOPHEN 500 MG TABLET 1000 MG PO ×3 (06:29→16:57)
[2021-06-20] MEDS: LEVOTHYROXINE SODIUM 75 MCG TABLET 150 MCG PO (06:29)
[2021-06-20 08:00] VITALS: BP 126/90; PULSE 80; RESP 18; TEMP 36.9; O2SAT 95
[2021-06-20] MEDS: ERGOCALCIFEROL 50,000 UNIT CAPSULE 50000 UNITS PO (08:32)
[2021-06-20] MEDS: MULTIVITAMINS THERAPEUTIC TAB (*BKC) 1 TABLET PO (08:32)
[2021-06-20] MEDS: SENNA/DOCUSATE SODIUM TABLET 2 TAB PO ×2 (08:32→16:58)
[2021-06-20] MEDS: FINASTERIDE 5 MG TABLET PO (08:32)
[2021-06-20] MEDS: APIXABAN 2.5 MG TABLET 5 MG PO ×2 (08:32→16:58)
[2021-06-20 08:33] VITALS: PULSE 84
[2021-06-20] MEDS: MAGNESIUM OXIDE 400 MG TABLET PO (08:33)
[2021-06-20] MEDS: METOPROLOL TARTRATE 50 MG TAB PO ×2 (08:33→21:52)
--- NOTE | 2021-06-20 10:50 | PC.NURSE ---
1000 out with in personal car for f/u appointment for ortho. here and assisted with care.
--- NOTE | 2021-06-20 13:41 | PC.NURSE ---
[address] luis. claims it went well getting in and out of van. no c/o, just tired. in bed. cont to to support and move r leg. brace in place. incision is dry and open to air. looks well approx.
[2021-06-20 15:46] VITALS: BP 113/98; PULSE 114; RESP 18; TEMP 36.2; O2SAT 95
[2021-06-20 21:52] VITALS: PULSE 88
[2021-06-20] MEDS: SIMVASTATIN 10 MG TABLET 40 MG PO (21:53)
[2021-06-21] VITALS: BP 115/91; PULSE 80; RESP 20; TEMP 36.1; O2SAT 95
--- NOTE | 2021-06-21 00:05 | PC.NURSE ---
Pt resting quietly in bed watching TV. Pt doesnt voice any c/o leg discomfort at this time. Pt voided 575 ml of clear, yellow urine in urinal. Pt given Tylenol 1000 mg PO as ordered for continued pain relief.
[2021-06-21] MEDS: ACETAMINOPHEN 500 MG TABLET 1000 MG PO ×5 (00:07→23:17)
--- NOTE | 2021-06-21 01:10 | PC.NURSE ---
Pt asleep and no signs of discomfort noted. Tylenol effective in maintaining pain relief.
--- NOTE | 2021-06-21 02:05 | PC.NURSE ---
Pt asleep and no signs of discomfort noted. 425 ml of clear, yellow urine emptied from urinal.
--- NOTE | 2021-06-21 04:12 | PC.NURSE ---
Pt asleep and no signs of discomfort noted. 425 ml of clear, yellow urine emptied from the urinal.
[2021-06-21] MEDS: LEVOTHYROXINE SODIUM 75 MCG TABLET 150 MCG PO (06:14)
--- NOTE | 2021-06-21 06:20 | PC.NURSE ---
Pt given Tylenol 1000 mg and levothyroxine 150 mcg PO as ordered.
[2021-06-21 07:40] VITALS: BP 122/81; PULSE 76; RESP 18; TEMP 36.1; O2SAT 94
[2021-06-21 09:49] VITALS: PULSE 77
[2021-06-21] MEDS: APIXABAN 2.5 MG TABLET 5 MG PO ×2 (09:49→18:02)
[2021-06-21] MEDS: MAGNESIUM OXIDE 400 MG TABLET PO (09:49)
[2021-06-21] MEDS: MULTIVITAMINS THERAPEUTIC TAB (*BKC) 1 TABLET PO (09:49)
[2021-06-21] MEDS: SENNA/DOCUSATE SODIUM TABLET 2 TAB PO ×2 (09:49→18:02)
[2021-06-21] MEDS: METOPROLOL TARTRATE 50 MG TAB PO ×2 (09:49→20:47)
[2021-06-21] MEDS: FINASTERIDE 5 MG TABLET PO (09:49)
[2021-06-21] MEDS: polyethylene glycoL 3350 17 GM POWD.PACK PO (09:50)
[2021-06-21 16:30] VITALS: BP 127/87; PULSE 88; RESP 16; TEMP 37.2; O2SAT 98
[2021-06-21 20:47] VITALS: PULSE 72
[2021-06-21] MEDS: SIMVASTATIN 10 MG TABLET 40 MG PO (20:48)
[2021-06-21 23:36] VITALS: BP 125/88; PULSE 66; RESP 18; TEMP 35.9; O2SAT 95
[2021-06-22] MEDS: LEVOTHYROXINE SODIUM 75 MCG TABLET 150 MCG PO (05:47)
[2021-06-22] MEDS: ACETAMINOPHEN 500 MG TABLET 1000 MG PO ×4 (05:48→23:46)
[2021-06-22 07:35] VITALS: BP 136/91; PULSE 85; RESP 18; TEMP 37; O2SAT 95
[2021-06-22] MEDS: SENNA/DOCUSATE SODIUM TABLET 2 TAB PO ×2 (09:15→17:45)
[2021-06-22 09:16] VITALS: PULSE 72
[2021-06-22] MEDS: APIXABAN 2.5 MG TABLET 5 MG PO ×2 (09:16→17:46)
[2021-06-22] MEDS: MAGNESIUM OXIDE 400 MG TABLET PO (09:16)
[2021-06-22] MEDS: METOPROLOL TARTRATE 50 MG TAB PO ×2 (09:16→20:31)
[2021-06-22] MEDS: FINASTERIDE 5 MG TABLET PO (09:16)
[2021-06-22] MEDS: polyethylene glycoL 3350 17 GM POWD.PACK PO (09:16)
[2021-06-22] MEDS: MULTIVITAMINS THERAPEUTIC TAB (*BKC) 1 TABLET PO (09:16)
--- NOTE | 2021-06-22 11:16 | PM.EVENT ---
Event Note Event Note Event Note: Patient notes that he feels a radiating pain going down his leg with the immobilizer. He notes that his orthopedic surgeon tightened the brace during his appointment and he has been feeling the throbbing radiating pain since. I did loosen the brace, pulses and sensation present . Patient has not experienced throbbing radiating pain since a slight adjustment in his immobilizer.
[2021-06-22 16:35] VITALS: BP 114/75; PULSE 87; RESP 18; TEMP 36.2; O2SAT 96
[2021-06-22] MEDS: SIMVASTATIN 10 MG TABLET 40 MG PO (20:30)
[2021-06-22 20:31] VITALS: PULSE 88
[2021-06-22 23:54] VITALS: BP 128/92; PULSE 88; RESP 18; TEMP 36.1; O2SAT 97
[2021-06-23] MEDS: ACETAMINOPHEN 500 MG TABLET 1000 MG PO (05:48)
[2021-06-23] MEDS: LEVOTHYROXINE SODIUM 75 MCG TABLET 150 MCG PO (05:48)
[2021-06-23 07:32] VITALS: BP 126/85; PULSE 80; RESP 16; TEMP 36.7; O2SAT 99
[2021-06-23] MEDS: APIXABAN 2.5 MG TABLET 5 MG PO (08:03)
[2021-06-23 08:04] VITALS: PULSE 80
[2021-06-23] MEDS: MULTIVITAMINS THERAPEUTIC TAB (*BKC) 1 TABLET PO (08:04)
[2021-06-23] MEDS: METOPROLOL TARTRATE 50 MG TAB PO (08:04)
[2021-06-23] MEDS: FINASTERIDE 5 MG TABLET PO (08:04)
[2021-06-23] MEDS: MAGNESIUM OXIDE 400 MG TABLET PO (08:04)
[2021-06-23] MEDS: SENNA/DOCUSATE SODIUM TABLET 2 TAB PO (08:05)
--- NOTE | 2021-06-23 08:37 | PM.DS ---
DS: Admitting Diagnosis Discharge Date 06/23/2021 Admitting Diagnosis Rehab DS: Discharge Diagnosis Discharge Diagnosis (1) Status post tendon repair: Code(s): Z98.890 - Other specified postprocedural states Status: Acute Assessment and Plan: Follow with orthopedic surgeon and continue to use the TLSO in leg immobilizer (2) Prediabetes: Code(s): R73.03 - Prediabetes Status: Acute Assessment and Plan: Managed by diet and exercise Low-carb diet (3) BPH (benign prostatic hyperplasia): Qualifiers: Lower urinary tract symptom presence: symptoms present Lower urinary tract symptom detail: unspecified Qualified Code(s): N40.1 - Benign prostatic hyperplasia with lower urinary tract symptoms Code(s): N40.0 - Benign prostatic hyperplasia without lower urinary tract symptoms Status: Acute Assessment and Plan: Continue home medications (4) Hypothyroidism: Qualifiers: Hypothyroidism type: unspecified Qualified Code(s): E03.9 - Hypothyroidism, unspecified Code(s): E03.9 - Hypothyroidism, unspecified Status: Acute Assessment and Plan: Continue home medications (5) HLD (hyperlipidemia): Qualifiers: Hyperlipidemia type: unspecified Qualified Code(s): E78.5 - Hyperlipidemia, unspecified Code(s): E78.5 - Hyperlipidemia, unspecified Status: Acute Assessment and Plan: Stable continue home medications (6) Afib: Qualifiers: Atrial fibrillation type: unspecified Qualified Code(s): I48.91 - Unspecified atrial fibrillation Code(s): I48.91 - Unspecified atrial fibrillation Status: Acute Assessment and Plan: Stable On Eliquis 5 mg twice daily DS: Summary Hospital Course Reason for hospitalization: Rehab Hospital Course: This is a 76-year-old male who had a right quadricep tendon repair on 06/09 without complications. Patient is here as a swing patient he will see therapy. Mr. Young originally had an injury on April 24, 2021. When he was found to have the right knee and a severe unstable T9 vertebral body fracture. Patient has completed our rehab program and will discharge to stay. He will go home with self-care and follow-up with his orthopedic surgeon. He was also instructed to keep his leg brace in TLSO brace on for an additional 4 weeks. On discharge patient able to walk 350 feet. Patient agrees with discharge. Time Spent with Patient Time attestation: Total time spent providing and/or coordinating discharge services: Discharge Plan Discharge Attending physician on discharge: Rex Shannon Discharging Clinician: Margarita Miles Anticipated Discharge Date/Time: 06/23/21 08:23 Patient Disposition: Home, Self-Care Activity: as tolerated Diet: diabetic Discharge Instructions: 1. Follow up with your provider within 1-2 weeks and or specialty as instructed 2. Take prescription medication as ordered follow orthopedic surgery orders concerning leg brace in TLSO Notify your provider of any signs and symptoms of infection: Fever Foul Odor Discharge Heat at the Site: Increase in Pain: Pus Redness and Swelling Patient Instructions: Antibiotic Form, Apixaban (By mouth), Fall Prevention for Older Adults (DC), Weakness (DC), Knee Immobilizer (DC), Safe Use of Anticoagulants (DC) Stand Alone Forms: General Discharge Information Follow-up/Referrals: Doug,Arsh Ames MD [Primary Care Provider] - 06/26/21 1:30 pm (keep scheduled appointment, patient thought it was at 1:30) Gatito Nguyen MD [Physician] - 07/18/21 (keep scheduled appointment with Dr Nguyen) UNKNOWN,DOCTOR [Non-Staff] - 07/31/21 (keep scheduled appoinment with Dr Jones (back surgeon)) Discharge Medications: Continued multivitamin Tablet 1 tablet PO DAILY RF: 0 polyethylene glycol 3350 17 gram Powder In Packet 17 g PO PRN PRN (Reason: Constip
--- NOTE | 2021-06-23 10:10 | PC.NURSE ---
Patient discharged to home via private vehicle, accompanied by his . Patient accompanied to lobby in w/c accompanied by jingle writer and OT. Assisted in to van by staff. Discharge instructions given to patient. Patient voiced understanding. Personal belongings sent home with patient.
--- NOTE | 2021-06-23 13:30 | PCOTNOTE ---
On 06/23/21, the student, [Racquel Copeland ], provided care and completed [facility] documentation on this patient. I have reviewed the student's documentation and agree with the findings. MS
--- NOTE | 2021-06-26 10:07 | PC.NURSE ---
Pt states he received and understood his discharge instructions. Pt also states I can't thank you guys enough.
== END 2021-06-23 10:10 | disposition home or self-care (01) | DRG 949 ==
PROVIDERS: Nurse Practitioner; Nurse Practitioner Family; Admitting Provider Internal Medicine; PCP Internal Medicine; Visit Provider Internal Medicine
DX: S76.111D Strain of right quadriceps muscle, fascia and tendon, subsequent encounter (principal); I48.20 Chronic atrial fibrillation, unspecified; S22.079D Unspecified fracture of T9-T10 vertebra, subsequent encounter for fracture with routine healing; I25.9 Chronic ischemic heart disease, unspecified; N40.0 Benign prostatic hyperplasia without lower urinary tract symptoms; E78.5 Hyperlipidemia, unspecified; E03.9 Hypothyroidism, unspecified; K57.30 Diverticulosis of large intestine without perforation or abscess without bleeding; R11.2 Nausea with vomiting, unspecified; R73.03 Prediabetes; Z98.1 Arthrodesis status; Z47.89 Encounter for other orthopedic aftercare
CPT/HCPCS: 36415; 71045; 80048; 82948; 83735; 84484; 85027; 97110; 97161; 97165; 97530; 97535; A9270

== ENCOUNTER 2021-07-22 17:00 | Outpatient (RCR) | payer MEDICARE, SELFPAY ==
--- NOTE | 2021-07-22 18:20 | PTOPEVAL ---
Thank you for referring Yang Young to [facility]. Please review, sign, date and return this plan of care JUANA. I agree with and certify that the following plan of care is medically necessary. Referring Physician Date Admitting Provider: Attending Provider: Gatito Nguyen MD Referring Provider: *PT Outpatient Evaluation Start: 07/22/21 17:05 Freq: Status: Active Protocol: Document 07/22/21 17:05 ROHINI (Rec: 07/22/21 17:41 ROHINI [email or web address]) Therapy Assessment Status Assessment Status Assessment Status Evaluation Outpatient Past Medical History Neurological History Hx Neurological Disorders No Significant History Cardiovascular History Hx Atrial Fibrillation Yes Respiratory History Hx Respiratory Disorders No Significant History Gastrointestinal History Hx Gastrointestinal Disorders No Significant History Genitourinary History Hx Genitourinary Disorders No Significant History Musculoskeletal History Hx Back Injury Yes Hx Orthopedic Surgery Yes Hx Spinal Surgery Yes Hematological History Hx Hematological Disorders No Significant History Endocrine History Hx Endocrine Disorders No Significant History HEENT History Hx HEENT Disorders No Significant History Integumentary History Hx Skin Disorders No Significant History Reproductive History Hx Reproductive Disorders No Significant History Psychosocial History Hx Psychiatric Disorders No Significant History Pain History History of Any Previous or Ongoing No Significant History Instance of Pain Anesthesia History Hx Anesthesia Reactions No Significant History Other History Hx Cancer Yes: MELANOMA LT NECK Evaluation Information Problem Diagnosis s/p right quad repair Onset 06/19/21 Subjective Information Pt. reports that he underwent Query Text:As Reported By Patient/ quad repair on the right 4 Family weeks ago. He reports that his doctor had told him he can begin 50% WB. He reports that he has not walked on the l.e. yet. He states that he is to wear the brace at night still. He reports that he has a ww at home. He reports that his goal is to be able to return to walking. Pain Assessment Timing of Pain Assessment Timing of Pain Assessment Pre-Treatment Self Report Self Report Pain Level 0 Pain Score Pain Score 0: Self Report Lower Extremity Range of Motion General Lower Extremit
--- NOTE | 2021-08-05 16:17 | PTOPEVAL ---
Thank you for referring Yang Young to [facility].? The patient is scheduled to be seen for therapy? ____x/week for ___ weeks. Please review, sign, date and return this plan of care JUANA. I agree with and certify that the following plan of care is medically necessary. Referring Physician Date Admitting Provider: Attending Provider: Gatito Nguyen MD Referring Provider: *PT Outpatient Evaluation Start: 07/22/21 17:05 Freq: Status: Active Protocol: Document 08/05/21 15:00 Connie (Rec: 08/05/21 16:15 [facility] [email or web address]) Therapy Assessment Status Assessment Status Assessment Status Re-evaluation Outpatient Past Medical History Neurological History Hx Neurological Disorders No Significant History Cardiovascular History Hx Atrial Fibrillation Yes Respiratory History Hx Respiratory Disorders No Significant History Gastrointestinal History Hx Gastrointestinal Disorders No Significant History Genitourinary History Hx Genitourinary Disorders No Significant History Musculoskeletal History Hx Back Injury Yes Hx Orthopedic Surgery Yes Hx Spinal Surgery Yes Hematological History Hx Hematological Disorders No Significant History Endocrine History Hx Endocrine Disorders No Significant History HEENT History Hx HEENT Disorders No Significant History Integumentary History Hx Skin Disorders No Significant History Reproductive History Hx Reproductive Disorders No Significant History Psychosocial History Hx Psychiatric Disorders No Significant History Pain History History of Any Previous or Ongoing No Significant History Instance of Pain Anesthesia History Hx Anesthesia Reactions No Significant History Other History Hx Cancer Yes: MELANOMA LT NECK Evaluation Information Problem Diagnosis s/p right quad repair Onset 06/19/21 Subjective Information patient reports he has been Query Text:As Reported By Patient/ wearing his brace 24 hours a Family day locked in extension. he reports he has been performing 50% weight bearing at home. he reports he has not been doing any exercises at home. he is cleared to progress to 100% weight bearing with brace on and using a walker beginning this week. Pain Assessment Timing of Pain Assessment Timing of Pain Assessment Assessment Self Report Self Report Pain Level 0 Pain Score Pain Score 0: Self Report Lower Extremity Range of Motion Knee Range of Motion Right
--- NOTE | 2021-09-05 14:12 | PTOPEVAL ---
Thank you for referring Yang Young to [facility].? The patient is scheduled to be seen for therapy? ____x/week for ___ weeks. Please review, sign, date and return this plan of care JUANA. I agree with and certify that the following plan of care is medically necessary. Referring Physician Date Admitting Provider: Attending Provider: Gatito Nguyen MD Referring Provider: *PT Outpatient Evaluation Start: 07/22/21 17:05 Freq: Status: Active Protocol: Document 08/29/21 15:00 Connie (Rec: 09/05/21 14:11 [facility] [email or web address]) Therapy Assessment Status Assessment Status Assessment Status Re-evaluation Outpatient Past Medical History Neurological History Hx Neurological Disorders No Significant History Cardiovascular History Hx Atrial Fibrillation Yes Respiratory History Hx Respiratory Disorders No Significant History Gastrointestinal History Hx Gastrointestinal Disorders No Significant History Genitourinary History Hx Genitourinary Disorders No Significant History Musculoskeletal History Hx Back Injury Yes Hx Orthopedic Surgery Yes Hx Spinal Surgery Yes Hematological History Hx Hematological Disorders No Significant History Endocrine History Hx Endocrine Disorders No Significant History HEENT History Hx HEENT Disorders No Significant History Integumentary History Hx Skin Disorders No Significant History Reproductive History Hx Reproductive Disorders No Significant History Psychosocial History Hx Psychiatric Disorders No Significant History Pain History History of Any Previous or Ongoing No Significant History Instance of Pain Anesthesia History Hx Anesthesia Reactions No Significant History Other History Hx Cancer Yes: MELANOMA LT NECK Evaluation Information Problem Diagnosis s/p right quad repair Onset 06/19/21 Subjective Information patient reports he is happy Query Text:As Reported By Patient/ with his progress thus far. he Family reports he went to the MD recently who is very happy with his progress. he is no longer in the knee brace, but does continue to need the use of the walker for ambulation. he reports he would like to continue skilled PT, and reports his MD would like him to continue skilled PT per his most recent order on 08/22/21 . Pain Assessment Timing of Pain Assessment Timing of Pain Assessment Assessment Self
--- NOTE | 2021-09-23 15:09 | PCPTNOTE ---
September 23, 2021 Patient Yang Young was seen on this date for rehab to right knee. Patient continues to ambulate with a walker for assistance. Treatment consists of strengthening of right knee with open and closed kinetic chain activities and balance activities. Passive range of motion of right knee is 102 degrees of flexion.
--- NOTE | 2021-10-03 14:10 | PTOPEVAL ---
Thank you for referring Yang Young to [facility].? The patient is scheduled to be seen for therapy? ____x/week for ___ weeks. Please review, sign, date and return this plan of care JUANA. I agree with and certify that the following plan of care is medically necessary. Referring Physician Date Admitting Provider: Attending Provider: Gatito Nguyen MD Referring Provider: *PT Outpatient Evaluation Start: 07/22/21 17:05 Freq: Status: Active Protocol: Document 09/26/21 14:00 CALI (Rec: 09/26/21 14:58 [facility] [email or web address]) Therapy Assessment Status Assessment Status Assessment Status Re-evaluation Outpatient Past Medical History Neurological History Hx Neurological Disorders No Significant History Cardiovascular History Hx Atrial Fibrillation Yes Respiratory History Hx Respiratory Disorders No Significant History Gastrointestinal History Hx Gastrointestinal Disorders No Significant History Genitourinary History Hx Genitourinary Disorders No Significant History Musculoskeletal History Hx Back Injury Yes Hx Orthopedic Surgery Yes Hx Spinal Surgery Yes Hematological History Hx Hematological Disorders No Significant History Endocrine History Hx Endocrine Disorders No Significant History HEENT History Hx HEENT Disorders No Significant History Integumentary History Hx Skin Disorders No Significant History Reproductive History Hx Reproductive Disorders No Significant History Psychosocial History Hx Psychiatric Disorders No Significant History Pain History History of Any Previous or Ongoing No Significant History Instance of Pain Anesthesia History Hx Anesthesia Reactions No Significant History Other History Hx Cancer Yes: MELANOMA LT NECK Evaluation Information Problem Diagnosis s/p right quad repair Onset 06/19/21 Additional Evaluation Detail LEFS = 66% Functionally Declined Subjective Information Pt states that he went to the Query Text:As Reported By Patient/ doctor on 09/24/21 and is now Family cleared to begin walking with a cane. He has brought his cane in today and would like PT to fit the cane for him. He says that he has been performing his HEP as well as additional sit to stands, trying to focus on bearing weight into his R knee which has made his R knee hurt more. He believes he is able to
--- NOTE | 2021-10-21 15:01 | PTOPEVAL ---
Thank you for referring Yang Young to [facility].? The patient is scheduled to be seen for therapy? ____x/week for ___ weeks. Please review, sign, date and return this plan of care JUANA. I agree with and certify that the following plan of care is medically necessary. Referring Physician Date Admitting Provider: Attending Provider: Gatito Nguyen MD Referring Provider: *PT Outpatient Evaluation Start: 07/22/21 17:05 Freq: Status: Active Protocol: Document 10/21/21 14:02 Connie (Rec: 10/21/21 15:00 [facility] [email or web address]) Therapy Assessment Status Assessment Status Assessment Status Re-evaluation Outpatient Past Medical History Neurological History Hx Neurological Disorders No Significant History Cardiovascular History Hx Atrial Fibrillation Yes Respiratory History Hx Respiratory Disorders No Significant History Gastrointestinal History Hx Gastrointestinal Disorders No Significant History Genitourinary History Hx Genitourinary Disorders No Significant History Musculoskeletal History Hx Back Injury Yes Hx Orthopedic Surgery Yes Hx Spinal Surgery Yes Hematological History Hx Hematological Disorders No Significant History Endocrine History Hx Endocrine Disorders No Significant History HEENT History Hx HEENT Disorders No Significant History Integumentary History Hx Skin Disorders No Significant History Reproductive History Hx Reproductive Disorders No Significant History Psychosocial History Hx Psychiatric Disorders No Significant History Pain History History of Any Previous or Ongoing No Significant History Instance of Pain Anesthesia History Hx Anesthesia Reactions No Significant History Other History Hx Cancer Yes: MELANOMA LT NECK Evaluation Information Problem Diagnosis s/p right quad repair Onset 06/19/21 Additional Evaluation Detail LEFS = 51% functionally declined Subjective Information patient reports he feels Good Query Text:As Reported By Patient/ this date. he reports he has Family a follow up with his MD this wednesday. he reports he is walking around home without his walker, but reports he still reaches out for objects to hold onto. he reports he is hoping to be cleared to walk at all times without his cane. he reports he is still not completing many steps at home, walking significant distance
== END 2021-10-21 23:59 | disposition home or self-care (01) ==
LOC: CHSPT 17:00
PROVIDERS: Visit Provider Orthopaedic Surgery
DX: Z98.890 Other specified postprocedural states (principal)
CPT/HCPCS: 97016; 97110; 97116; 97140; 97161; 97530

== ENCOUNTER 2021-09-05 09:37 | Outpatient (CLI) | payer MEDICARE, SELFPAY ==
[2021-09-05 10:11] LABS: Basophils Absolute Auto 0.05 K/mm3 (0.00-0.10); Basophils Percent Auto 0.7 % (0.0-1.0); Eosinophils Absolute Auto 0.31 K/mm3 (0.02-0.50); Eosinophils Percent Auto 4.6 % (1.0-6.0); Hemoglobin 13.3 g/dL (12.4-15.3); Immature Granulocyte Absolute 0.02 K/mm3 (0.00-0.00); Immature Granulocyte Percent A 0.3 % (0.0-0.0); Lymphocytes Absolute Auto 1.64 K/mm3 (1.10-4.50); Lymphocytes Percent Auto 24.1 % (18.0-42.0); Mean Corpuscular HGB Conc 33.3 g/dL (32.0-36.0); Mean Corpuscular Hemoglobin 33.3 pg (27.0-31.0); Mean Corpuscular Volume 100.3 fL (78.0-102.0); Mean Platelet Volume 11.3 fl (8.7-11.0); Monocytes Absolute Auto 0.57 K/mm3 (0.10-0.90); Monocytes Percent Auto 8.4 % (2.0-11.0); Neutrophils Absolute Auto 4.2 K/mm3 (1.7-7.2); Neutrophils Percent Auto 61.9 % (50.0-70.0); Platelet Count Result 202 K/mm3 (150-420); Red Blood Count 3.99 M/mm3 (4.70-6.10); White Blood Count 6.8 K/mm3 (4.8-10.8)
[2021-09-05 10:20] LABS: Hemoglobin A1C 5.9 % (<5.7)
[2021-09-05 10:48] LABS: Alanine Aminotransferase 17 U/L (16-63); Albumin Level 3.4 g/dL (3.4-5.0); Alkaline Phosphatase 122 U/L (46-116); Anion Gap 5 mmol/L (8-16); Aspartate Amino Transferase 16 U/L (15-37); Bilirubin,Total 0.7 mg/dL (0.00-1.00); Blood Urea Nitrogen 10 mg/dL (7-18); Carbon Dioxide 29 mmol/L (21-32); Chloride 106 mmol/L (98-108); Cholesterol 143 mg/dL (0-200); Estimated Glomerular Filt Rate > 60; Glucose 116 mg/dL (70-99); HDL Direct 58 mg/dL (40-60); LDL Cholesterol Calculated 71 mg/dL (<130); Osmolality Calculated 290 mOsm/kg (285-295); Potassium 4.1 mmol/L (3.5-5.1); Sodium 140 mmol/L (136-145); Thyroid Stimulating Hormone 3.51 uIU/mL (0.36-3.74); Total Protein 7.3 g/dL (6.4-8.2); Triglycerides 69 mg/dL (0-150); Vitamin B12 418 pg/mL (193-986)
[2021-09-09 19:31] LABS: Vitamin D 25 Hydroxy 55 ng/mL (30-100)
[2021-09-09 21:27] LABS: Testosterone Free 57.8 pg/mL (30.0-135.0); Testosterone Total 459 ng/dL (250-1100)
== END 2021-09-05 09:38 | disposition home or self-care (01) ==
LOC: CHSLAB 09:40
PROVIDERS: PCP Internal Medicine; Visit Provider Internal Medicine
DX: M79.10 Myalgia, unspecified site (principal); E78.49 Other hyperlipidemia; I48.20 Chronic atrial fibrillation, unspecified; R73.03 Prediabetes; Z79.899 Other long term (current) drug therapy
CPT/HCPCS: 36415; 80053; 80061; 82306; 82607; 83036; 84402; 84403; 84443; 85025

== ENCOUNTER 2021-09-17 10:32 | Outpatient (CLI) | payer MEDICARE, SELFPAY ==
[2021-09-17 11:08] LABS: Creatinine Urine 67.47 mg/dL (40-278)
[2021-09-17 11:12] LABS: Creatinine 24 Hour Urine 1.45 g/24 hr (0.95-2.49); Total Volume 24 Hour Urine 2150 ml
[2021-09-19 11:31] LABS: Parathyroid Intact 42 pg/mL (14-64)
[2021-09-19 14:58] LABS: Total Volume 2150 mL; Urine Calcium 7.2 mg/dL
[2021-09-23 22:38] LABS: Estradiol, Ultrasensitive 30 pg/mL (< OR = 29)
== END 2021-09-17 10:33 | disposition home or self-care (01) ==
LOC: CHSLAB 10:33
PROVIDERS: PCP Internal Medicine; Visit Provider Internal Medicine Endocrinology, Diabetes & Metabolism
DX: M81.0 Age-related osteoporosis without current pathological fracture (principal); S22.009A Unspecified fracture of unspecified thoracic vertebra, initial encounter for closed fracture
CPT/HCPCS: 36415; 81050; 82340; 82530; 82570; 82670; 83970; 84075

== ENCOUNTER 2021-10-20 11:34 | Outpatient (CLI) | payer MEDICARE, SELFPAY ==
[2021-10-25 12:07] LABS: Cortisol, Saliva 0.34 mcg/dL
== END 2021-10-20 11:35 | disposition home or self-care (01) ==
LOC: CHSLAB 11:36
PROVIDERS: PCP Internal Medicine; Visit Provider Internal Medicine Endocrinology, Diabetes & Metabolism
DX: R73.03 Prediabetes (principal); R82.998 Other abnormal findings in urine; S22.009A Unspecified fracture of unspecified thoracic vertebra, initial encounter for closed fracture
CPT/HCPCS: 82530

== ENCOUNTER 2021-10-22 07:54 | Outpatient (CLI) | payer MEDICARE, SELFPAY ==
[2021-10-26 05:14] LABS: Cortisol Random 1.3 mcg/dL (***)
[2021-10-30 17:08] LABS: Cortisol, Saliva 0.03 mcg/dL
== END 2021-10-22 07:55 | disposition home or self-care (01) ==
LOC: CHSLAB 07:56
PROVIDERS: PCP Internal Medicine; Visit Provider Internal Medicine Endocrinology, Diabetes & Metabolism
DX: R82.998 Other abnormal findings in urine (principal); S22.009A Unspecified fracture of unspecified thoracic vertebra, initial encounter for closed fracture; R73.03 Prediabetes
CPT/HCPCS: 36415; 82530; 82533

== ENCOUNTER 2021-10-28 13:58 | Outpatient (RCR) | payer MEDICARE, SELFPAY | END 2021-11-14 14:44 | disposition home or self-care (01) | LOC: CHSPT 13:58 | PROVIDERS: Visit Provider Orthopaedic Surgery | DX: Z98.890 Other specified postprocedural states (principal) | CPT/HCPCS: 97110; 97530 ==

== ENCOUNTER 2021-11-19 14:56 | Outpatient (RCR) | payer MEDICARE, SELFPAY ==
--- NOTE | 2021-11-19 15:35 | PTOPEVAL ---
Thank you for referring Yang Young to [facility].? The patient is scheduled to be seen for therapy? __2__x/week for 10 visits. Please review, sign, date and return this plan of care JUANA. I agree with and certify that the following plan of care is medically necessary. Referring Physician Date Admitting Provider: Attending Provider: Gatito Nguyen MD Referring Provider: *PT Outpatient Evaluation Start: 11/19/21 15:08 Freq: Status: Active Protocol: Document 11/19/21 15:08 ROHINI (Rec: 11/19/21 15:34 ROHINI [email or web address]) Therapy Assessment Status Assessment Status Assessment Status Evaluation Outpatient Past Medical History Neurological History Hx Neurological Disorders No Significant History Cardiovascular History Hx Atrial Fibrillation Yes Respiratory History Hx Respiratory Disorders No Significant History Gastrointestinal History Hx Gastrointestinal Disorders No Significant History Genitourinary History Hx Genitourinary Disorders No Significant History Musculoskeletal History Hx Back Injury Yes Hx Orthopedic Surgery Yes Hx Spinal Surgery Yes Hematological History Hx Hematological Disorders No Significant History Endocrine History Hx Endocrine Disorders No Significant History HEENT History Hx HEENT Disorders No Significant History Integumentary History Hx Skin Disorders No Significant History Reproductive History Hx Reproductive Disorders No Significant History Psychosocial History Hx Psychiatric Disorders No Significant History Pain History History of Any Previous or Ongoing No Significant History Instance of Pain Anesthesia History Hx Anesthesia Reactions No Significant History Other History Hx Cancer Yes: MELANOMA LT NECK Evaluation Information Problem Diagnosis back pain, ninth thoracic vertebra fx Onset 04/24/21 Subjective Information Pt. reoprts that he fell on Text:As Reported By Patient. He states that he fx a Family veretbra and underwent surgery on 04/26/21. He reports that he has been a TLSO since surgery. He reports that he has now began to wean from the TLSO and is currently going up to 4 hours without the brace. He states that he notices he is slumped when out of the brace and notices some developing low back pain. He states that he
== END 2021-12-17 08:57 | disposition home or self-care (01) ==
LOC: CHSPT 14:56
PROVIDERS: Visit Provider Orthopaedic Surgery
DX: Z98.890 Other specified postprocedural states (principal); S22.078D Other fracture of T9-T10 vertebra, subsequent encounter for fracture with routine healing
CPT/HCPCS: 97014; 97110; 97161; 97530; G0283

== ENCOUNTER 2022-03-18 09:26 | Outpatient (CLI) | payer MEDICARE, SELFPAY ==
[2022-03-18 09:55] LABS: Basophils Absolute Auto 0.04 K/mm3 (0.00-0.10); Basophils Percent Auto 0.6 % (0.0-1.0); Eosinophils Absolute Auto 0.26 K/mm3 (0.02-0.50); Hematocrit 41.5 % (37.0-46.0); Hemoglobin 13.5 g/dL (12.4-15.3); Immature Granulocyte Absolute 0.03 K/mm3 (0.00-0.00); Immature Granulocyte Percent A 0.5 % (0.0-0.0); Lymphocytes Absolute Auto 1.47 K/mm3 (1.10-4.50); Lymphocytes Percent Auto 22.5 % (18.0-42.0); Mean Corpuscular HGB Conc 32.5 g/dL (32.0-36.0); Mean Corpuscular Hemoglobin 33.4 pg (27.0-31.0); Mean Corpuscular Volume 102.7 fL (78.0-102.0); Mean Platelet Volume 11.3 fl (8.7-11.0); Monocytes Absolute Auto 0.58 K/mm3 (0.10-0.90); Monocytes Percent Auto 8.9 % (2.0-11.0); Neutrophils Absolute Auto 4.2 K/mm3 (1.7-7.2); Neutrophils Percent Auto 63.5 % (50.0-70.0); Platelet Count Result 146 K/mm3 (150-420); Red Blood Count 4.04 M/mm3 (4.70-6.10); Red Cell Distribution Width 12.4 % (11.6-14.4); White Blood Count 6.5 K/mm3 (4.8-10.8)
[2022-03-18 10:04] LABS: Hemoglobin A1C 5.7 % (<5.7)
[2022-03-18 10:42] LABS: Alanine Aminotransferase 20 U/L (16-63); Albumin Level 3.7 g/dL (3.4-5.0); Alkaline Phosphatase 101 U/L (46-116); Anion Gap 6 mmol/L (8-16); Aspartate Amino Transferase 16 U/L (15-37); Blood Urea Nitrogen 13 mg/dL (7-18); Calcium 8.6 mg/dL (8.5-10.1); Carbon Dioxide 30 mmol/L (21-32); Chloride 107 mmol/L (98-108); Cholesterol 148 mg/dL (0-200); Estimated Glomerular Filt Rate > 60; Glucose 118 mg/dL (70-99); HDL Direct 61 mg/dL (40-60); LDL Cholesterol Calculated 72 mg/dL (<130); Osmolality Calculated 297 mOsm/kg (285-295); Potassium 4.3 mmol/L (3.5-5.1); Sodium 143 mmol/L (136-145); Thyroid Stimulating Hormone 2.38 uIU/mL (0.36-3.74); Triglycerides 76 mg/dL (0-150); Vitamin B12 475 pg/mL (193-986)
== END 2022-03-18 09:27 | disposition home or self-care (01) ==
LOC: CHSLAB 09:28
PROVIDERS: PCP Internal Medicine; Visit Provider Internal Medicine
DX: E03.8 Other specified hypothyroidism (principal); E78.49 Other hyperlipidemia; R73.03 Prediabetes; I48.20 Chronic atrial fibrillation, unspecified
CPT/HCPCS: 36415; 80053; 80061; 82607; 83036; 84443; 85025

== ENCOUNTER 2023-03-18 08:26 | Outpatient (CLI) | payer MEDICARE, SELFPAY ==
[2023-03-18 09:13] LABS: Basophils Absolute Auto 0.04 K/mm3 (0.00-0.10); Basophils Percent Auto 0.5 % (0.0-1.0); Eosinophils Percent Auto 2.7 % (1.0-6.0); Hematocrit 41.7 % (37.0-46.0); Hemoglobin 13.6 g/dL (12.4-15.3); Immature Granulocyte Absolute 0.02 K/mm3 (0.00-0.00); Immature Granulocyte Percent A 0.3 % (0.0-0.0); Immature Platelet Fraction Pct 7.7 % (1.0-7.0); Lymphocytes Absolute Auto 1.15 K/mm3 (1.10-4.50); Lymphocytes Percent Auto 15.7 % (18.0-42.0); Mean Corpuscular HGB Conc 32.6 g/dL (32.0-36.0); Mean Corpuscular Hemoglobin 33.5 pg (27.0-31.0); Mean Corpuscular Volume 102.7 fL (78.0-102.0); Mean Platelet Volume 11.7 fl (8.7-11.0); Monocytes Absolute Auto 0.97 K/mm3 (0.10-0.90); Monocytes Percent Auto 13.3 % (2.0-11.0); Neutrophils Absolute Auto 4.9 K/mm3 (1.7-7.2); Neutrophils Percent Auto 67.5 % (50.0-70.0); Platelet Count Result 129 K/mm3 (150-420); Red Blood Count 4.06 M/mm3 (4.70-6.10); Red Cell Distribution Width 12.3 % (11.6-14.4); White Blood Count 7.3 K/mm3 (4.8-10.8)
[2023-03-18 10:23] LABS: Alanine Aminotransferase 28 U/L (16-63); Albumin Level 3.8 g/dL (3.4-5.0); Alkaline Phosphatase 106 U/L (46-116); Anion Gap 4 mmol/L (8-16); Aspartate Amino Transferase 19 U/L (15-37); Bilirubin,Total 1.4 mg/dL (0.00-1.00); Blood Urea Nitrogen 14 mg/dL (7-18); Carbon Dioxide 33 mmol/L (21-32); Chloride 104 mmol/L (98-108); Cholesterol 127 mg/dL (0-200); Estimated Glomerular Filt Rate > 60; Glucose 111 mg/dL (70-99); HDL Direct 57 mg/dL (40-60); LDL Cholesterol Calculated 58 mg/dL (<130); Osmolality Calculated 293 mOsm/kg (285-295); Potassium 3.9 mmol/L (3.5-5.1); Sodium 141 mmol/L (136-145); Thyroid Stimulating Hormone 0.53 uIU/mL (0.36-3.74); Total Protein 6.8 g/dL (6.4-8.2); Triglycerides 58 mg/dL (0-150); Vitamin B12 430 pg/mL (193-986)
[2023-03-21 19:00] LABS: Vitamin D 25 Hydroxy 35 ng/mL (30-100)
== END 2023-03-18 08:27 | disposition home or self-care (01) ==
LOC: CHSLAB 08:34
PROVIDERS: PCP Internal Medicine; Visit Provider Internal Medicine
DX: E55.9 Vitamin D deficiency, unspecified (principal); E53.8 Deficiency of other specified B group vitamins; E78.49 Other hyperlipidemia
CPT/HCPCS: 36415; 80053; 80061; 82306; 82607; 84443; 85025; 85055

== ENCOUNTER 2024-11-23 13:34 | Emergency (ER) | payer MEDICARE, SELFPAY ==
--- NOTE | 2024-11-23 13:39 | ED.WOUNDLAC ---
HPI - Wound/Laceration General Chief Complaint: Wound/Laceration Stated Complaint: R LEG LACERATION Source: patient Mode of arrival: ambulatory Limitations: no limitations History of Present Illness HPI narrative: 79 y/o male presented for redness and swelling surrounding a laceration to the right leg sustained 3 weeks ago. Pt sustained the laceration when he struck the leg on a wooden coffee table. He did not seek evaluation at that time because they were leaving for a trip. says it needed stitches at the time. She had applied steri strips to the wound at the time, and has not gotten the site wet since then until 2 days ago. denies warmth to the leg. Pt denies pain, n/v/d/f/c. Related Data Home Medications ?Medication ?Instructions ?Recorded ?Confirmed ?Last Taken ?Type finasteride 5 mg tablet (Proscar) 5 mg PO DAILY 05/08/21 11/23/24 06/11/21 08:10 History levothyroxine 150 mcg tablet 150 mcg PO DAILY 05/08/21 11/23/24 06/11/21 05:35 History (Synthroid) multivitamin 1 tablet PO DAILY 05/08/21 11/23/24 06/11/21 08:10 History simvastatin 40 mg tablet (Zocor) 40 mg PO HS 05/08/21 11/23/24 06/10/21 20:25 History apixaban 5 mg tablet (Eliquis) 5 mg PO BID 06/06/21 11/23/24 06/06/21 09:00 History melatonin 10 mg tablet 10 mg PO HS PRN Insomnia 06/06/21 09/11/21 06/08/21 20:00 History metoprolol tartrate 50 mg tablet 50 mg PO BID 06/06/21 11/23/24 06/11/21 08:10 History cholecalciferol (vitamin D3) 50 100 mcg PO DAILY 09/11/21 09/11/21 Unknown History mcg (2,000 unit) capsule cyclobenzaprine 10 mg tablet mg 11/23/24 Unknown History Allergies Allergy/AdvReac Type Severity Reaction Status Date / Time shellfish derived Allergy Anaphylactic Verified 11/23/24 13:56 Shock morphine AdvReac Vomiting Verified 11/23/24 13:56 Review of Systems Review of Systems: CONSTITUTIONAL: Denies body aches, fever, chills, or sweats. CARDIOVASCULAR: Denies chest pain, palpitations, or edema. RESPIRATORY: Denies cough or dyspnea. GASTROINTESTINAL: Denies abdominal pain, nausea, vomiting, or diarrhea. SKIN: reports laceration and redness to right leg MUSCULOSKELETAL: Denies back pain, joint pain, or myalgia. NEUROLOGIC: Denies headache, numbness, tingling, or weakness. [facility] Past Medical History Medical History Acute encephalopathy Afib BPH (benign prostatic hyperplasia) Cardiac dysrhythmia Chronic ischemic heart disease Diverticula of colon HLD (hyperlipidemia) Hypothyroidism Malignant melanoma neck Prediabetes Rib fracture Scoliosis of thoracic spine Swollen R knee Surgical History Surgical History H/O hernia repair b/l inguinal and umbilcal History of tonsillectomy S/P fusion of thoracic spine Family History Family History Father Pancreatic cancer Cancer Mother Osteoporosis Hypothyroidism Social History Social History (Updated 09/11/21 @ 08:31 by Jackelyn Brown CMA) 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 Please see nursing chart for further information. There is no relevant family history pertinent to the presenting complaint Exam Narrative: GENERAL: Well-appearing HEAD: Normocephalic, atraumatic. EYES: conjunctivae clear, and EOMI. ENT: Mucous membranes moist. Oropharynx without edema, erythema or lesions. NECK: Supple. No lymphadenopathy CHEST: Clear to auscultation. HEART: Regular rate and rhythm. SKIN: Warm, dry. Right lower lateral leg with deep laceration [id number] gaping wound, foul odor, no active drainage; surrounding erythema and warmth c/w cellulitis, not circumferential. CMS intact. PPP and equal bilaterally. Skin to legs is dry and flaky, jewell discoloration. NEURO: Alert and oriented x3. Course Course Emergency Course: Patient is aware of diagnosis, understands and agrees to treatment plan. Anticipatory guidance given. Patient agrees to follow-up as directed and is aware of reasons to seek care at the emergency department. Portions of this record may have been created with voice recognition software Level of Care: Express Care Visit Vital Signs Vital signs: Vital Signs Temperature 98.2 F 11/23/24 13:44 Pulse Rate 91 11/23/24 13:44 Respiratory Rate 16 11/23/24 13:44 Blood Pressure 135/82 11/23/24 13:44 Pulse Oximetry 98 11/23/24 13:44 Temperature 98.2 F 11/23/24 13:44 Pulse Rate 91 11/23/24 13:44 Respiratory Rate 16 11/23/24 13:44 Blood Pressure 135/82 11/23/24 13:44 Pulse Oximetry 98 11/23/24 13:44 Reviewed MDM - Wound/Laceration MDM Narrative Medical decision making narrative: Discussed physical exam findings; cellulitis around healing lower leg laceration. Steri strips were removed, wound was cleansed and culture obtained. Vaseline gauze and 4x4 applied. Pt denies pain or fever. Reviewed RX, advised f/u with wound clinic and pcp. Advised supportive measures and signs/symptoms to go to the ER. Pt is appropriate for outpt treatment and f/u. Differential Diagnosis Differential diagnosis: Likely laceration, abscess, abrasion and other (cellulitis) Discharge Plan Discharge Clinical Impression: Laceration, Cellulitis Patient Disposition: Home Condition: Stable Instructions: Antibiotic Form, Laceration (ED), Cellulitis (ED) Additional Instructions: Keep the area clean and dry - cleanse daily with warm water and mild soap and allow to fully dry. Change the dressing daily until you have instructions from the wound care center. Vaseline gauze, plain gauze and Coban Keep the leg elevated when possible to reduce swelling Tylenol as needed for pain Watch for worsening symptoms including pain, redness, swelling, streaking, pus/drainage, fever. Go to the ER with any of these symptoms or concerns. Follow up with primary care provider Contact the [facility], 2nd Floor [address] [place] [id number] Hours: Akshat ? Wednesday: 7 a.m. to 3:30 p.m. Patient Language: Kinyarwanda Prescriptions: New cephalexin 500 mg capsule 500 mg PO Q6H 10 Days Qty: 40 0RF doxycycline hyclate 100 mg tablet 100 mg PO BID 7 Days Qty: 14 0RF No Action multivitamin Tablet 1 tablet PO DAILY simvastatin [Zocor] 40 mg Tablet 40 mg PO HS levothyroxine [Synthroid] 150 mcg Tablet 150 mcg PO DAILY finasteride [Proscar] 5 mg Tablet 5 mg PO DAILY cyclobenzaprine 10 mg tablet cholecalciferol (vitamin D3) 50 mcg (2,000 unit) capsule 100 mcg PO DAILY metoprolol tartrate 50 mg tablet 50 mg PO BID Patient Comments: pt taking two 50 mg daily Eliquis 5 mg tablet 5 mg PO BID melatonin 10 mg Tablet 10 mg PO HS PRN (Reason: Insomnia) polyethylene glycol 3350 [Miralax] 17 gram Powder In Packet 17 g PO QAM Qty: 30 0RF sennosides-docusate sodium [Senokot-S] 8.6-50 mg Tablet 2 tab PO BID Qty: 60 0RF acetaminophen 500 mg Tablet 1,000 mg PO Q6HR Qty: 90 0RF Follow-up/Referrals: Doug,Arsh Ames MD [Primary Care Provider] Time of Disposition: 14:25
[2024-11-23 13:44] VITALS: BP 135/82; PULSE 91; RESP 16; TEMP 36.8; O2SAT 98
== END 2024-11-23 14:34 | disposition home or self-care (01) ==
PROVIDERS: Emergency Provider Nurse Practitioner Family; PCP Internal Medicine
DX: S81.811A Laceration without foreign body, right lower leg, initial encounter (principal); L03.115 Cellulitis of right lower limb; W22.8XXA Striking against or struck by other objects, initial encounter; I48.91 Unspecified atrial fibrillation; N40.0 Benign prostatic hyperplasia without lower urinary tract symptoms; I25.9 Chronic ischemic heart disease, unspecified; E78.5 Hyperlipidemia, unspecified; E03.9 Hypothyroidism, unspecified; R73.03 Prediabetes; Z85.820 Personal history of malignant melanoma of skin; Z79.01 Long term (current) use of anticoagulants
CPT/HCPCS: 87070; 87075; 87205; 99213; G0463

== ENCOUNTER 2024-11-24 16:52 | Emergency (ER) | payer MEDICARE, SELFPAY ==
--- OUTSIDE RECORDS SUMMARY | 2024-11-24 16:54 | XMS_ITS | Encounter Summary ---
Author Organization [facility] Address [address] [place] [address] Care Team Providers Care Senior Telecommunications Engineer Name Role Phone Arsh Camacho MD Primary Care Provider Encounter Details Date Type Department Care Team (Late st Contact Info) Description 06/08/2006 Outpatient Historical [facility] Internal Medicine [address] [address] Arsh Camacho MD [address] [place] [address] [address] [place] [address] Social History Tobacco Use Types Packs/Day Years Used Date Smoking Tobacco: Never Assessed Sex and Gender Information Value Date Recorded Sex Assigned at Male 01/26/2024 7:42 PM CDT Legal Sex Male 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 Gender Identity Male 01/26/2024 7:42 PM CDT Sexual Orientation Straight 01/26/2024 7: 42 PM CDT documented as of this encounter Plan of Treatment Upcoming Encounters Date Type Department Care Team (Late st Contact Info) Description 11/30/2024 3:20 PM CDT Office Visit [facility] Primary Care [address] [place] [address] Arsh Camacho MD [address] [place] [address] [address] [place] [address] 01/09/2025 1:00 PM CDT Office Visit [facility] HEART AND [facility]ASCULAR EP AT [facility] [address] [facility] [address] [place] [address] Robert Falcon MD [address] [facility] [address] [place] [id number] 04/02/2025 1:20 PM GEOLOGY INSTRUCTOR Office Visit [facility] Primary Care [address] [place] [address] Arsh Camacho MD [address] [place] [address] [address] [place] [address] documented as of this encounter Visit Diagnoses Not on filedocumented in this encounter Care Teams Senior Telecommunications Engineer Relationship Specialty Start Date End Date Arsh Camacho MD PCP - General 07/27/07 documented as of this encounter
--- OUTSIDE RECORDS SUMMARY | 2024-11-24 16:54 | XMS_ITS | Encounter Summary ---
Author Organization [facility] Address [address] [place] [address] Care Team Providers Care Jacker Feeder Name Role Phone Arsh Camacho MD Primary Care Provider [phone] Encounter Details Date Type Department Care Team (Late Contact Info) Description 02/09/2006 Outpatient Historical [facility] Internal Medicine [address] [address] Arsh Camacho MD [address] [place] [address] Social History Tobacco Use Types Packs/Day Years Used Date Smoking Tobacco: Never Assessed Sex and Gender Information Value Date Recorded Sex Assigned at Male 01/26/2024 7:42 PM CDT Legal Sex Male 2:41 AM DATABASE DEVELOPER Gender Identity Male 01/26/2024 7:42 PM CDT Sexual Orientation Straight 01/26/2024 7: 42 PM CDT documented as of this encounter Last Filed Vital Signs Vital Sign Reading Time Taken Comments Blood Pressure 130/80 02/09/2006 3:30 PM DATABASE DEVELOPER Pulse - - Temperature - - Respiratory Rate - - Oxygen Saturation - - Inhaled Oxygen Concentration - - Weight 125.2 kg (276 lb) 02/09/2006 3:30 PM DATABASE DEVELOPER Height - - Body Mass Index 34.5 04/10/2003 11:45 AM DATABASE DEVELOPER documented in this encounter Plan of Treatment Upcoming Encounters Date Type Department Care Team (Late Contact Info) Description 11/30/2024 3:20 PM CDT Office Visit [facility] Care [address] [place] [address] Arsh Camacho MD [address] [place] [address] [address] [place] [address] 01/09/2025 1:00 PM CDT Office Visit [facility] HEART AND VASCULAR EP AT [address] [place] [address] Robert Falcon MD [address] [place] [address] [address] [place] [phone] 04/02/2025 1:20 PM DATABASE DEVELOPER Office Visit [address] [place] [address] Arsh Camacho MD [address] [place] [address] [place] [address] documented as of this encounter Visit Diagnoses Not on filedocumented in this encounter Care Teams Jacker Feeder Relationship Specialty Start Date End Date Arsh Camacho MD PCP - General 07/27/07 documented as of this encounter
--- OUTSIDE RECORDS SUMMARY | 2024-11-24 16:54 | XMS_ITS | Encounter Summary ---
Author Organization [facility] Address [address] [place] [address] Care Team Providers Care Missile Technician Name Role Phone Arsh Camacho MD Primary Care Provider [phone] Encounter Details Date Type Department Care Team (Late st Contact Info) Description 07/06/2006 Orders Only [facility] Internal Medicine [address] [address] Arsh Camacho MD [address] [place] [address] [address] [place] [address] Social History Tobacco Use Types Packs/Day Years Used Date Smoking Tobacco: Never Assessed Sex and Gender Information Value Date Recorded Sex Assigned at Male 01/26/2024 7:42 PM CDT Legal Sex Male 2:41 AM GUEST EXPERIENCE MANAGER Gender Identity Male 01/26/2024 7:42 PM CDT Sexual Orientation Straight 01/26/2024 7: 42 PM CDT documented as of this encounter Plan of Treatment Upcoming Encounters Date Type Department Care Team (Late st Contact Info) Description 11/30/2024 3:20 PM CDT Office Visit [facility] Primary Care [address] [place] [address] Arsh Camacho MD [address] [place] [address] [address] [place] [address] 01/09/2025 1:00 PM CDT Office Visit [facility] HEART AND VASCULAR EP AT [facility] [address] [facility] [address] [place] [address] Robert Falcon MD [address] [facility] [address] [place] [phone] 04/02/2025 1:20 PM GUEST EXPERIENCE MANAGER Office Visit [facility] Primary Care [address] [place] [address] Arsh Camacho MD [address] [place] [address] [address] [place] [address] documented as of this encounter Visit Diagnoses Not on filedocumented in this encounter Care Teams Missile Technician Relationship Specialty Start Date End Date Arsh Camacho MD PCP - General 07/27/07 documented as of this encounter
--- OUTSIDE RECORDS SUMMARY | 2024-11-24 16:54 | XMS_ITS | Encounter Summary ---
Author Organization [facility] Address [address] [place] [address] Care Team Providers Care Street Light Servicer Name Role Phone Arsh Camacho MD Primary Care Provider [phone] Encounter Details Date Type Department Care Team (Late Contact Info) Description 12/10/2004 Outpatient Historical [facility] Internal Medicine [address] [address] Arsh Camacho MD [address] [place] [address] Social History Tobacco Use Types Packs/Day Years Used Date Smoking Tobacco: Never Assessed Sex and Gender Information Value Date Recorded Sex Assigned at Male 01/26/2024 7:42 PM CDT Legal Sex Male 2:41 AM VALVE STEAMER Gender Identity Male 01/26/2024 7:42 PM CDT Sexual Orientation Straight 01/26/2024 7: 42 PM CDT documented as of this encounter Last Filed Vital Signs Vital Sign Reading Time Taken Comments Blood Pressure 124/70 12/10/2004 10:00 AM CDT Pulse - - Temperature - - Respiratory Rate - - Oxygen Saturation - - Inhaled Oxygen Concentration - - Weight 124.7 kg (275 lb) 12/10/2004 10:00 AM CDT Height - - Body Mass Index 34.37 04/10/2003 11:45 AM VALVE STEAMER documented in this encounter Plan of Treatment Upcoming Encounters Date Type Department Care Team (Late Contact Info) Description 11/30/2024 3:20 PM CDT Office Visit [address] [place] [address] Arsh Camacho MD [address] [place] [address] [address] [place] [address] 01/09/2025 1:00 PM CDT Office Visit [facility] HEART AND VASCULAR EP AT [address] [place] [address] Robert Falcon MD [address] [place] [address] [address] [place] [address] 04/02/2025 1:20 PM VALVE STEAMER Office Visit [address] [place] [address] Arsh Camacho MD [address] [place] [address] [address] [place] [address] documented as of this encounter Visit Diagnoses Not on filedocumented in this encounter Care Teams Street Light Servicer Relationship Specialty Start Date End Date Arsh Camacho MD PCP - General 07/27/07 documented as of this encounter
--- OUTSIDE RECORDS SUMMARY | 2024-11-24 16:54 | XMS_ITS | Encounter Summary ---
Author Organization [facility] Address [address] [place] [address] Care Team Providers Care Oil Change Technician Name Role Phone Arsh Camacho MD Primary Care Provider [phone] Encounter Details Date Type Department Care Team (Late st Contact Info) Description 01/04/2007 Outpatient Historical [facility] Internal Medicine [address] [address] Arsh Camacho MD [address] [place] [address] [address] [place] [address] Social History Tobacco Use Types Packs/Day Years Used Date Smoking Tobacco: Never Assessed Sex and Gender Information Value Date Recorded Sex Assigned at Male 01/26/2024 7:42 PM CDT Legal Sex Male 2:41 AM NEUROLOGICAL PHYSIOTHERAPIST Gender Identity Male 01/26/2024 7:42 PM CDT Sexual Orientation Straight 01/26/2024 7: 42 PM CDT documented as of this encounter Plan of Treatment Upcoming Encounters Date Type Department Care Team (Late st Contact Info) Description 11/30/2024 3:20 PM CDT Office Visit [facility] Primary Care [address] [place] [address] Arsh Camacho MD [address] [place] [address] [address] [place] [address] 01/09/2025 1:00 PM CDT Office Visit [facility] HEART AND VASCULAR EP AT [facility] [address] [facility] [address] [place] [address] Robert Falcon MD [address] [facility] [address] [place] [address] 04/02/2025 1:20 PM NEUROLOGICAL PHYSIOTHERAPIST Office Visit [facility] Primary Care [address] [place] [address] Arsh Camacho MD [address] [place] [address] [address] [place] [address] documented as of this encounter Visit Diagnoses Not on filedocumented in this encounter Care Teams Oil Change Technician Relationship Specialty Start Date End Date Arsh Camacho MD PCP - General 07/27/07 documented as of this encounter
--- OUTSIDE RECORDS SUMMARY | 2024-11-24 16:54 | XMS_ITS | Encounter Summary ---
Author Organization [facility] Address [address] [place] [address] Care Team Providers Care Spa Consultant Name Role Phone Arsh Camacho MD Primary Care Provider [phone] Encounter Details Date Type Department Care Team (Late Contact Info) Description 08/05/2005 Outpatient Historical [facility] Internal Medicine [address] [address] Arsh Camacho MD [address] [place] [address] Social History Tobacco Use Types Packs/Day Years Used Date Smoking Tobacco: Never Assessed Sex and Gender Information Value Date Recorded Sex Assigned at Male 01/26/2024 7:42 PM CDT Legal Sex Male 2:41 AM CASTING INSPECTOR Gender Identity Male 01/26/2024 7:42 PM CDT Sexual Orientation Straight 01/26/2024 7: 42 PM CDT documented as of this encounter Last Filed Vital Signs Vital Sign Reading Time Taken Comments Blood Pressure 120/72 08/05/2005 10:00 AM CDT Pulse - - Temperature - - Respiratory Rate - - Oxygen Saturation - - Inhaled Oxygen Concentration - - Weight 128.8 kg (284 lb) 08/05/2005 10:00 AM CDT Height - - Body Mass Index 35.5 04/10/2003 11:45 AM CASTING INSPECTOR documented in this encounter Plan of Treatment Upcoming Encounters Date Type Department Care Team (Late Contact Info) Description 11/30/2024 3:20 PM CDT Office Visit [address] [place] [address] Arsh Camacho MD [address] [place] [address] [address] [place] [address] 01/09/2025 1:00 PM CDT Office Visit [facility] HEART AND VASCULAR EP AT [address] [place] [address] Robert Falcon MD [address] [place] [address] [address] [place] [address] 04/02/2025 1:20 PM CASTING INSPECTOR Office Visit [address] [place] [address] Arsh Camacho MD [address] [place] [address] [address] [place] [address] documented as of this encounter Visit Diagnoses Not on filedocumented in this encounter Care Teams Spa Consultant Relationship Specialty Start Date End Date Arsh Camacho MD PCP - General 07/27/07 documented as of this encounter
--- OUTSIDE RECORDS SUMMARY | 2024-11-24 16:54 | XMS_ITS | Encounter Summary ---
Author Organization [facility] Address [address] [place] [address] Care Team Providers Care Sock And Stocking Ironer Name Role Phone Arsh Camacho MD Primary Care Provider [phone] Encounter Details Date Type Department Care Team (Late st Contact Info) Description 11/10/2005 Orders Only [facility] Internal Medicine [address] [address] Arsh Camacho MD [address] [place] [address] Social History Tobacco Use Types Packs/Day Years Used Date Smoking Tobacco: Never Assessed Sex and Gender Information Value Date Recorded Sex Assigned at Male 01/26/2024 7:42 PM CDT Legal Sex Male 2:41 AM WEB DEVELOPMENT INSTRUCTOR Gender Identity Male 01/26/2024 7:42 PM CDT Sexual Orientation Straight 01/26/2024 7: 42 PM CDT documented as of this encounter Progress Notes * Arsh Camacho MD - 01/05/2008 10:09 PM CDT WEIGHT: 277lbs BLOOD PRESSURE: 122/70 Right Arm Sitting ( LARGE CUFF) NURSE NAME: Jared Laguna N CHIEF COMPLAINT Patient here for follow up hyperlipidemia, hypothyroidism. HISTORY: HISTORY: 244.9-HYPOTHYROIDISM The hypothyroidism is stable. 272.4-HYPERLIPIDEMIA The patient is tolerating the medications. 427.31-ATRIAL FIBRILLATION The atrial fibrillation remains stable. PHYSICAL EXAMINATION: CONSTITUTIONAL: GENERAL APPEARANCE: Healthy appearing patient in no distress. NECK/THYROID: Trachea midline. No thyroid enlargement, tenderness, or mass. No supraclavicular or cervical adenopathy. RESPIRATORY: Clear to auscultation and percussion. Normal respiratory effort. CARDIOVASCULAR: CARDIAC: Regular rhythm. No murmurs, rubs, or gallops. ARTERIAL: Aortic pulses of normal amplitude with no bruits. EDEMA/VARICOSITIES OF EXTREMITIES: No edema or varicosities. GASTROINTESTINAL: ABDOMEN: Soft, non-tender, without masses. Bowel sounds active. LIVER/SPLEEN/KIDNEY: No hepatosplenomegaly, tenderness or nodularity. Kidneys not palpable. ASSESSMENT/PLAN: 244.9-HYPOTHYROIDISM cont med 272.4-HYPERLIPIDEMIA cont med, check lab 427.31-ATRIAL FIBRILLATION stable LAB ORDERS: Order number: [id number] Test Ordered: COMPREHENSIVE METABOLIC PANEL W/ GLOMERULAR FILTRATION RATE, ESTIMATED (EGFR) 50532 Order number: [id number] Test Ordered: LIPID PANEL 7600 Order number: [id number] Test Ordered: TSH 899 Order number: [id number] Test Ordered: PT WITH INR 8847 RETURN VISIT : Patient instructed to return in 3 months. Electronically Signed by: Arsh Camacho MD on Thursday, November 10, 2005 documented in this encounter Plan of Treatment Upcoming Encounters Date Type Department Care Team (Late st Contact Info) Description 11/30/2024 3:20 PM CDT Office Visit [facility] Primary Care [place] [address] [place] [phone] Arsh Camacho MD [address] [place] [address] [address] [place] [phone] 01/09/2025 1:00 PM CDT [facility] HEART AND VASCULAR EP AT [address] [place] [address] Robert Falcon MD [address] [place] [address] [address] [place] [address] 04/02/2025 1:20 PM WEB DEVELOPMENT INSTRUCTOR Office Visit [facility] Primary Care [address] [place] [address] Arsh Camacho MD [address] [place] [address] [address] [place] [address] documented as of this encounter Visit Diagnoses Not on filedocumented in this encounter Care Teams Sock And Stocking Ironer Relationship Specialty Start Date End Date Arsh Camacho MD PCP - General 07/27/07 documented as of this encounter
--- OUTSIDE RECORDS SUMMARY | 2024-11-24 16:54 | XMS_ITS | Encounter Summary ---
Author Organization [facility] Address [address] [place] [address] Care Team Providers Care Assistant Front Office Manager Name Role Phone Arsh Camacho MD Primary Care Provider Encounter Details Date Type Department Care Team (Late st Contact Info) Description 09/15/2005 Orders Only [facility] Internal Medicine [address] [address] Arsh Camacho MD [address] [place] [address] [address] [place] [address] Social History Tobacco Use Types Packs/Day Years Used Date Smoking Tobacco: Never Assessed Sex and Gender Information Value Date Recorded Sex Assigned at Male 01/26/2024 7:42 PM CDT Legal Sex Male 2:41 AM RECYCLE WORKER Gender Identity Male 01/26/2024 7:42 PM CDT Sexual Orientation Straight 01/26/2024 7: 42 PM CDT documented as of this encounter Plan of Treatment Upcoming Encounters Date Type Department Care Team (Late st Contact Info) Description 11/30/2024 3:20 PM CDT Office Visit [facility] Primary Care [address] [place] [address] Arsh Camacho MD [address] [place] [address] [address] [place] [address] 01/09/2025 1:00 PM CDT Office Visit [facility] HEART AND VASCULAR EP AT [facility] [address] [facility] [address] [place] [address] Robert Falcon MD [address] [facility] [address] [place] [address] 04/02/2025 1:20 PM RECYCLE WORKER Office Visit [facility] Primary Care [address] [place] [address] Arsh Camacho MD [address] [place] [address] [address] [place] [address] documented as of this encounter Visit Diagnoses Not on filedocumented in this encounter Care Teams Assistant Front Office Manager Relationship Specialty Start Date End Date Arsh Camacho MD PCP - General 07/27/07 documented as of this encounter
--- OUTSIDE RECORDS SUMMARY | 2024-11-24 16:54 | XMS_ITS | Encounter Summary ---
Author Organization [facility] Address [address] [place] [address] Care Team Providers Care Community Action Worker Name Role Phone Arsh Camacho MD Primary Care Provider [phone] Encounter Details Date Type Department Care Team (Late st Contact Info) Description 12/31/2005 Orders Only [facility] Internal Medicine [address] [address] Arsh Camacho MD [address] [place] [address] Social History Tobacco Use Types Packs/Day Years Used Date Smoking Tobacco: Never Assessed Sex and Gender Information Value Date Recorded Sex Assigned at Male 01/26/2024 7:42 PM CDT Legal Sex Male 2:41 AM ADOPTION SERVICES MANAGER Gender Identity Male 01/26/2024 7:42 PM CDT Sexual Orientation Straight 01/26/2024 7: 42 PM CDT documented as of this encounter Progress Notes * Arsh Camacho MD - 01/10/2008 8:02 PM CDT TIME:05:42 pm PROTIME: Have PT drawn in one week. Protime is high. Change dosage to the following. PROTIME: INR: 3.4 DOSING INSTRUCTIONS 5/6 pt notified /6 qod recheck 1 week ni 12/31/05 05:43 pm MEDICATIONS: WARFARIN SODIUM ORAL TABLET 5 MG, 1 Every Other Day, 30 Dispensed, 10 Fills, status: NEW PRESCRIPTION, 12/31/2005, Comment: 5/6 mg qod. please call to [facility] [phone] 01/01/06 9:50a Called into Pharmacy. Electronically Signed by: Richelle Carreon on Wednesday, January 01, 2006 documented in this encounter Plan of Treatment Upcoming Encounters Date Type Department Care Team (Late st Contact Info) Description 11/30/2024 3:20 PM CDT Office Visit [address] [place] [address] [place] [address] Arsh Camacho MD [address] [place] [address] [address] [place] [address] 01/09/2025 1:00 PM CDT Office Visit [facility] HEART AND VASCULAR EP AT [place] [address] [facility] [address] [place] [address] Robert Falcon MD [facility] [address] [facility] [address] [place] [address] 04/02/2025 1:20 PM ADOPTION SERVICES MANAGER Office Visit [address] [place] [address] [place] [address] Arsh Camacho MD [address] [place] [address] [address] [place] [address] documented as of this encounter Visit Diagnoses Not on filedocumented in this encounter Care Teams Community Action Worker Relationship Specialty Start Date End Date Arsh Camacho MD PCP - General 07/27/07 documented as of this encounter
--- OUTSIDE RECORDS SUMMARY | 2024-11-24 16:54 | XMS_ITS | Encounter Summary ---
Author Organization [facility] Address [address] [place] [address] Care Team Providers Care Summer Law Clerk Name Role Phone Arsh Camacho MD Primary Care Provider [phone] Encounter Details Date Type Department Care Team (Late Contact Info) Description 11/10/2005 Outpatient Historical [facility] Internal Medicine [address] [address] Arsh Camacho MD [address] [place] [address] Social History Tobacco Use Types Packs/Day Years Used Date Smoking Tobacco: Never Assessed Sex and Gender Information Value Date Recorded Sex Assigned at Male 01/26/2024 7:42 PM CDT Legal Sex Male 2:41 AM WATER QUALITY SPECIALIST Gender Identity Male 01/26/2024 7:42 PM CDT Sexual Orientation Straight 01/26/2024 7: 42 PM CDT documented as of this encounter Last Filed Vital Signs Vital Sign Reading Time Taken Comments Blood Pressure 122/70 11/10/2005 3:15 PM CDT Pulse - - Temperature - - Respiratory Rate - - Oxygen Saturation - - Inhaled Oxygen Concentration - - Weight 125.6 kg (277 lb) 11/10/2005 3:15 PM CDT Height - - Body Mass Index 34.62 04/10/2003 11:45 AM WATER QUALITY SPECIALIST documented in this encounter Plan of Treatment Upcoming Encounters Date Type Department Care Team (Late Contact Info) Description 11/30/2024 3:20 PM CDT Office Visit [address] [place] [address] Arsh Camacho MD [address] [place] [address] [address] [place] [address] 01/09/2025 1:00 PM CDT Office Visit [facility] HEART AND VASCULAR EP AT [address] [place] [address] Robert Falcon MD [address] [place] [address] [address] [place] [address] 04/02/2025 1:20 PM WATER QUALITY SPECIALIST Office Visit [address] [place] [address] Arsh Camacho MD [address] [place] [address] [address] [place] [address] documented as of this encounter Visit Diagnoses Not on filedocumented in this encounter Care Teams Summer Law Clerk Relationship Specialty Start Date End Date Arsh Camacho MD PCP - General 07/27/07 documented as of this encounter
--- OUTSIDE RECORDS SUMMARY | 2024-11-24 16:54 | XMS_ITS | Encounter Summary ---
Author Organization [facility] Address [address] [place] [address] Care Team Providers Care Barrel Rifler Name Role Phone Arsh Camacho MD Primary Care Provider [phone] Encounter Details Date Type Department Care Team (Late st Contact Info) Description 06/08/2006 Orders Only [facility] Internal Medicine [address] [address] Arsh Camacho MD [address] [place] [address] Social History Tobacco Use Types Packs/Day Years Used Date Smoking Tobacco: Never Assessed Sex and Gender Information Value Date Recorded Sex Assigned at Male 01/26/2024 7:42 PM CDT Legal Sex Male 2:41 AM LICENSING SPECIALIST Gender Identity Male 01/26/2024 7:42 PM CDT Sexual Orientation Straight 01/26/2024 7: 42 PM CDT documented as of this encounter Progress Notes * Arsh Camacho MD - 08/19/2007 11:21 AM CDT NURSE NAME: Deandra Pappas R * Arsh Camacho MD - 08/19/2007 11:21 AM CDT WEIGHT: 285lbs BLOOD PRESSURE: 120/70 Right Arm Sitting NURSE NAME: Deandra Pappas R CHIEF COMPLAINT Patient here for follow up atrial fibrillation, hyperlipidemia. HISTORY: HISTORY: 244.9-HYPOTHYROIDISM No complications noted from the medication presently being used. 272.4-HYPERLIPIDEMIA The patient`s most recent labs reviewed. 427.31-ATRIAL FIBRILLATION No complications noted from the medication presently being used. The patient denies dyspnea on exertion, orthopnea, pedal edema, palpitations, and paroxysmal nocturnal dyspnea. 600.00-BPH W/O OBSTRUCTION sx stable V58.61-PENITENTIARY USE OF ANTICOAGULANT (COUMADIN) stble 562.10-DIVERTICULOSIS stable ROS: ENDOCRINE: No heat or cold intolerance, no excessive thirst. CARDIAC: No chest pain, palpitations, orthopnea, dyspnea on exertion, or paroxysmal nocturnal dyspnea. RESPIRATORY: No dyspnea, cough, hemoptysis or wheezing. : No dysuria or hematuria. GI: No abdominal pain, nausea, vomiting, diarrhea, constipation, melena, or hematochezia. PAST MEDICAL HISTORY: reviewed SOCIAL HISTORY: TOBACCO USE: Has no significant smoking history. DISCUSSED SMOKING: neg. ALCOHOL: Does not give any significant history of alcohol usage. PHYSICAL EXAMINATION: CONSTITUTIONAL: GENERAL APPEARANCE: Healthy appearing patient in no distress. NECK/THYROID: Trachea midline. No thyroid enlargement, tenderness, or mass. No supraclavicular or cervical adenopathy. RESPIRATORY: Clear to auscultation and percussion. Normal respiratory effort. CARDIOVASCULAR: CARDIAC: Regular rhythm. No murmurs, rubs, or gallops. ARTERIAL: No aortic bruits. EDEMA/VARICOSITIES OF EXTREMITIES: No edema or varicosities. GASTROINTESTINAL: ABDOMEN: Soft, non-tender, without masses. Bowel sounds active. LIVER/SPLEEN/KIDNEY: No hepatosplenomegaly, tenderness or nodularity. Kidneys not palpable. HERNIA: A REDUCIBLE ABDOMINAL WALL HERNIA IS PRESENT. RECTAL: Rectal exam reveals no masses or hemorrhoids, sphincter tone is normal. STOOL/HEMOCCULT: Stool is hemoccult negative. Stool is normal. GENITOURINARY: PROSTATE: 1+ ENLARGED, smooth. ASSESSMENT/PLAN: 244.9-HYPOTHYROIDISM cont med 272.4-HYPERLIPIDEMIA cont med, enc diet and ex, --gained wt 427.31-ATRIAL FIBRILLATION try alt med, pt to call if sx, cont warfarin MEDICATIONS: TOPROL XL ORAL TABLET 24 HR 50 MG, 1 Every Day, 30 Dispensed, 4 Fills, status: NEW PRESCRIPTION, 06/08/2006. LAB ORDERS: 3 mo Order number: [id number] Test Ordered: COMPREHENSIVE METABOLIC PANEL W/ GLOMERULAR FILTRATION RATE, ESTIMATED (EGFR) 48761 Order number: [id number] Test Ordered: LIPID PANEL 7600 Order number: [id number] Test Ordered: TSH 899 Order number: [id number] Test Ordered: PT WITH INR 8847 600.00-BPH W/O OBSTRUCTION recheck psa V58.61-PENITENTIARY USE OF ANTICOAGULANT (COUMADIN) stable 562.10-DIVERTICULOSIS stable LAB ORDERS: Order number: [id number] Test Ordered: HEMOCCULT SINGLE [id number] RETURN VISIT : Patient instructed to return in 3 months. Electronically Signed by: Arsh Camacho MD on Thursday, June 08, 2006 documented in this encounter Plan of Treatment Upcoming Encounters Date Type Department Care Team (Late st Contact Info) Description 11/30/2024 3:20 [place] [address] Arsh Camacho MD [address] [place] [address] 01/09/2025 1:00 PM CDT Office Visit [facility] HEART AND VASCULAR EP AT [address] [place] [address] Robert Falcon MD [address] [place] [address] [address] [place] [address] 04/02/2025 1:20 PM LICENSING [place] [address] Arsh Camacho MD [address] [place] [address] documented as of this encounter Visit Diagnoses Not on filedocumented in this encounter Care Teams Barrel Rifler Relationship Specialty Start Date End Date Arsh Camacho MD PCP - General 07/27/07 documented as of this encounter
--- OUTSIDE RECORDS SUMMARY | 2024-11-24 16:54 | XMS_ITS | Encounter Summary ---
Author Organization [facility] Address [address] [place] [address] Care Team Providers Care Manager Activities Name Role Phone Arsh Camacho MD Primary Care Provider [phone] Encounter Details Date Type Department Care Team (Late st Contact Info) Description 02/09/2006 Orders Only [facility] ([facility] Internal Medicine [address] [address] Arsh Camacho MD [address] [place] [address] Social History Tobacco Use Types Packs/Day Years Used Date Smoking Tobacco: Never Assessed Sex and Gender Information Value Date Recorded Sex Assigned at Male 01/26/2024 7:42 PM CDT Legal Sex Male 2:41 AM OPERATING ROOM SPECIALIST Gender Identity Male 01/26/2024 7:42 PM CDT Sexual Orientation Straight 01/26/2024 7: 42 PM CDT documented as of this encounter Progress Notes * Arsh Camacho MD - 01/10/2008 11:44 PM CDT WEIGHT: 276lbs BLOOD PRESSURE: 130/80 Right Arm Sitting NURSE NAME: Elke Ayala J CHIEF COMPLAINT Patient here for follow up hyperlipidemia, atrial fibrillation, hypothyroidism. HISTORY: HISTORY: 244.9-HYPOTHYROIDISM The hypothyroidism is stable. 272.4-HYPERLIPIDEMIA The patient is tolerating the medications. 427.31-ATRIAL FIBRILLATION No complications noted from the medication presently being used. PHYSICAL EXAMINATION: CONSTITUTIONAL: GENERAL APPEARANCE: Healthy appearing [...] palpable. ASSESSMENT/PLAN: 244.9-HYPOTHYROIDISM cont med 272.4-HYPERLIPIDEMIA cont med 427.31-ATRIAL FIBRILLATION contmed LAB ORDERS: 4 mo Order number: [id number] Test Ordered: COMPREHENSIVE METABOLIC PANEL W/ GLOMERULAR FILTRATION RATE, ESTIMATED (EGFR) 03636 Order number: [id number] Test Ordered: LIPID PANEL 7600 Order number: [id number] Test Ordered: TSH 899 Order number: [id number] Test Ordered: PT WITH INR 8847 Order number: [id number] Test Ordered: PSA 5363 600.00-BPH W/O OBSTRUCTION check at fu RETURN VISIT : Patient instructed to return in 4 months. Electronically Signed by: Arsh Camacho MD on Thursday, February 09, 2006 documented in this encounter Plan of Treatment Upcoming Encounters Date Type Department Care Team (Late st Contact Info) Description 11/30/2024 3:20 PM CDT Office Visit [facility] ([facility] Primary [place] [address] [place] [id number] Arsh Camacho MD [address] [place] [address] [address] [place] [id number] 01/09/2025 1:00 PM CDT Office Visit [facility] HEART AND VASCULAR EP AT [address] [place] [address] Robert Falcon MD [address] [place] [address] 2014 [place] [address] 04/02/2025 1:20 PM OPERATING ROOM SPECIALIST Office Visit [facility] ([facility] Primary Care [address] [place] [address] Arsh Camacho MD [address] [place] [address] [address] [place] [address] documented as of this encounter Visit Diagnoses Not on filedocumented in this encounter Care Teams Manager Activities Relationship Specialty Start Date End Date Arsh Camacho MD PCP - General 07/27/07 documented as of this encounter
--- OUTSIDE RECORDS SUMMARY | 2024-11-24 16:54 | XMS_ITS | Encounter Summary ---
Author Organization [facility] Address [address] [place] [address] Care Team Providers Care Technology Adoption Manager Name Role Phone Arsh Camacho MD Primary Care Provider [phone] Encounter Details Date Type Department Care Team (Late Contact Info) Description 04/08/2005 Outpatient Historical [facility] (Former[facility]3] Internal Medicine [address] [address] Arsh Camacho MD [address] [place] [address] 102 [place] [address] Social History Tobacco Use Types Packs/Day Years Used Date Smoking Tobacco: Never Assessed Sex and Gender Information Value Date Recorded Sex Assigned at Male 01/26/2024 7:42 PM CDT Legal Sex Male 2:41 AM LEGAL WRITING PROFESSOR Gender Identity Male 01/26/2024 7:42 PM CDT Sexual Orientation Straight 01/26/2024 7: 42 PM CDT documented as of this encounter Last Filed Vital Signs Vital Sign Reading Time Taken Comments Blood Pressure 120/80 04/08/2005 10:00 AM LEGAL WRITING PROFESSOR Pulse - - Temperature - - Respiratory Rate - - Oxygen Saturation - - Inhaled Oxygen Concentration - - Weight 127 kg (280 lb) 04/08/2005 10:00 AM LEGAL WRITING PROFESSOR Height - - Body Mass Index 35 04/10/2003 11:45 AM LEGAL WRITING PROFESSOR documented in this encounter Plan of Treatment Upcoming Encounters Date Type Department Care Team (Late st Contact Info) Description 11/30/2024 3:20 PM CDT Office Visit [facility] ([facility]3] Primary [address] [place] [address] Arsh Camacho MD [address] [place] [address] [address] [place] [address] 01/09/2025 1:00 PM CDT Office Visit [facility] HEART AND VASCULAR EP AT [address] [place] [address] Robert Falcon MD [address] [place] [address] 2014 [place] [address] 04/02/2025 1:20 PM LEGAL WRITING PROFESSOR Office Visit [facility] ([facility]3] Primary Care [address] [phone] Arsh Camacho MD [address] [place] [address] [place] [address] documented as of this encounter Visit Diagnoses Not on filedocumented in this encounter Care Teams Technology Adoption Manager Relationship Specialty Start Date End Date Arsh Camacho MD PCP - General 07/27/07 documented as of this encounter
--- OUTSIDE RECORDS SUMMARY | 2024-11-24 16:54 | XMS_ITS | Encounter Summary ---
Author Organization [facility] Address [address] [place] [address] Care Team Providers Care Vending Enterprises Supervisor Name Role Phone Arsh Camacho MD Primary Care Provider Encounter Details Date Type Department Care Team (Late st Contact Info) Description 06/08/2006 Outpatient Historical [facility] Internal Medicine [address] [address] Arsh Camacho MD [address] [place] [address] 102 [place] [address] Social History Tobacco Use Types Packs/Day Years Used Date Smoking Tobacco: Never Assessed Sex and Gender Information Value Date Recorded Sex Assigned at Male 01/26/2024 7:42 PM CDT Legal Sex Male 2:41 AM TOGGLE PRESS OPERATOR Gender Identity Male 01/26/2024 7:42 PM CDT Sexual Orientation Straight 01/26/2024 7: 42 PM CDT documented as of this encounter Plan of Treatment Upcoming Encounters Date Type Department Care Team (Late st Contact Info) Description 11/30/2024 3:20 PM CDT Office Visit [facility] Primary Care [address] [place] [address] Arsh Camacho MD [address] [place] [address] [address] [place] [address] 01/09/2025 1:00 PM CDT Office Visit [facility] HEART AND VASCULAR EP AT [facility] [address] [facility] [address] [place] [address] Robert Falcon MD [address] [facility] [address] [place] [address] 04/02/2025 1:20 PM TOGGLE PRESS OPERATOR Office Visit [facility] Primary Care [address] [place] [address] Arsh Camacho MD [address] [place] [address] [address] [place] [address] documented as of this encounter Visit Diagnoses Not on filedocumented in this encounter Care Teams [employer]ending [employer] Supervisor Relationship Specialty Start Date End Date Arsh Camacho MD PCP - General 07/27/07 documented as of this encounter
--- OUTSIDE RECORDS SUMMARY | 2024-11-24 16:54 | XMS_ITS | Encounter Summary ---
Author Organization [facility] Address [address] [place] [address] Care Team Providers Care Chimney Repairer Name Role Phone Arsh Camacho MD Primary Care Provider [phone] Encounter Details Date Type Department Care Team (Late st Contact Info) Description 08/05/2005 Orders Only [facility] Internal Medicine [address] [address] Arsh Camacho MD [address] [place] [address] Social History Tobacco Use Types Packs/Day Years Used Date Smoking Tobacco: Never Assessed Sex and Gender Information Value Date Recorded Sex Assigned at Male 01/26/2024 7:42 PM CDT Legal Sex Male 2:41 AM PHARMACY TEACHER Gender Identity Male 01/26/2024 7:42 PM CDT Sexual Orientation Straight 01/26/2024 7: 42 PM CDT documented as of this encounter Progress Notes * Arsh Camacho MD - 01/06/2008 4:23 AM CDT WEIGHT: 284lbs BLOOD PRESSURE: 120/72 Right Arm Sitting NURSE NAME: Jared Laguna N CHIEF COMPLAINT Patient here for follow up hyperlipidemia. HISTORY: HISTORY: 244.9-HYPOTHYROIDISM No complications noted from the medication presently being used. The patient has had an increase in weight. 272.4-HYPERLIPIDEMIA The patient is tolerating the medications. The patient's most recent LDL was near goal. 427.31-ATRIAL FIBRILLATION The patient denies dyspnea on exertion, orthopnea, pedal edema, palpitations, and paroxysmal nocturnal dyspnea. No complications noted from the medication presently being used. V58.61-HOG TRADER USE OF ANTICOAGULANT (COUMADIN) ROS: CARDIAC: No chest pain, palpitations, orthopnea, dyspnea on exertion, or paroxysmal nocturnal dyspnea. RESPIRATORY: No dyspnea, cough, hemoptysis or wheezing. : No dysuria or hematuria. GI: No abdominal pain, nausea, vomiting, diarrhea, constipation, melena, or hematochezia. PAST MEDICAL HISTORY: Afibs/p ablation, htn, chol,thyroid SOCIAL HISTORY: TOBACCO USE: Has no significant smoking history. DISCUSSED SMOKING: neg. ALCOHOL: Drinks a minimal amount of alcohol. EXERCISES: The patient exercises. PHYSICAL EXAMINATION: CONSTITUTIONAL: GENERAL APPEARANCE: Healthy appearing [...] hepatosplenomegaly, tenderness or nodularity. Kidneys not palpable. SKIN: SKIN: Warm, dry, no diaphoresis, no significant lesions, irritation, rashes or ulcers. No induration, obvious subcutaneous nodules or tightening.small lacerations on feet--was working on [email or web address] ASSESSMENT/PLAN: 244.9-HYPOTHYROIDISM inc med MEDICATIONS: SYNTHROID ORAL TABLET 112 MCG, 1 Every Day, 90 Dispensed, 3 Fills, 90 Duration/Days Supply, status:NEW PRESCRIPTION, 08/05/2005. 272.4-HYPERLIPIDEMIA try alt med MEDICATIONS: VYTORIN ORAL TABLET 10-40 MG, 1 Every Day, 90 Dispensed, status: NEW PRESCRIPTION, 08/05/2005. 427.31-ATRIAL FIBRILLATION cont med V58.61-HOG TRADER USE OF ANTICOAGULANT (COUMADIN) stable HEALTH MAINTENANCE: pt to schedule colonoscopy- discussed RETURN VISIT : Patient instructed to return in 3 months. Electronically Signed by: Arsh Camacho MD on Friday, August 05, 2005 documented in this encounter Plan of Treatment Upcoming Encounters Date Type Department Care Team (Late st Contact Info) Description 11/30/2024 3:20 PM CDT Office Visit [address] [place] [address] [place] [address] Arsh Camacho MD [address] [place] [address] [address] [place] [address] 01/09/2025 1:00 PM CDT Office Visit [facility] HEART AND VASCULAR EP AT [place] [address] [facility] [address] [place] [address] Robert Falcon MD [address] [place] [address] [address] [place] [address] 04/02/2025 1:20 PM PHARMACY TEACHER Office Visit [address] [place] [address] Asrh Camacho MD [address] [place] [address] [address] [place] [address] documented as of this encounter Visit Diagnoses Not on filedocumented in this encounter Care Teams Chimney Repairer Relationship Specialty Start Date End Date Arsh Camacho MD PCP - General 07/27/07 documented as of this encounter
--- OUTSIDE RECORDS SUMMARY | 2024-11-24 16:55 | XMS_ITS | Encounter Summary ---
Author Organization [facility] Address [address] [place] [address] Care Team Providers Care Yoga Teacher Name Role Phone Arsh Camacho MD Primary Care Provider [phone] Encounter Details Date Type Department Care Team (Late Contact Info) Description 08/01/2003 Outpatient Historical [facility] Internal Medicine [address] [address] Arsh Camacho MD [address] [place] [address] Social History Tobacco Use Types Packs/Day Years Used Date Smoking Tobacco: Never Assessed Sex and Gender Information Value Date Recorded Sex Assigned at Male 01/26/2024 7:42 PM CDT Legal Sex Male 2:41 AM WOOD STOCK BLANK HANDLER Gender Identity Male 01/26/2024 7:42 PM CDT Sexual Orientation Straight 01/26/2024 7: 42 PM CDT documented as of this encounter Last Filed Vital Signs Vital Sign Reading Time Taken Comments Blood Pressure 124/80 08/01/2003 11:15 AM CDT Pulse - - Temperature - - Respiratory Rate - - Oxygen Saturation - - Inhaled Oxygen Concentration - - Weight 125.6 kg (277 lb) 08/01/2003 11:15 AM CDT Height - - Body Mass Index 34.62 04/10/2003 11:45 AM WOOD STOCK BLANK HANDLER documented in this encounter Plan of Treatment Upcoming Encounters Date Type Department Care Team (Late Contact Info) Description 11/30/2024 3:20 PM CDT Office Visit [address] [place] [address] Arsh Camacho MD [address] [place] [address] [address] [place] [address] 01/09/2025 1:00 PM CDT Office Visit [facility] HEART AND VASCULAR EP AT [address] [place] [address] Robert Falcon MD [address] [place] [address] 2014 [place] [address] 04/02/2025 1:20 PM WOOD STOCK BLANK HANDLER Office Visit [address] [place] [address] Arsh Camacho MD [address] [place] [address] [address] [place] [address] documented as of this encounter Visit Diagnoses Not on filedocumented in this encounter Care Teams Yoga Teacher Relationship Specialty Start Date End Date Arsh Camacho MD PCP - General 07/27/07 documented as of this encounter
--- OUTSIDE RECORDS SUMMARY | 2024-11-24 16:55 | XMS_ITS | Encounter Summary ---
Author Organization [facility] Address [address] [place] [address] Care Team Providers Care Claims Administrator Name Role Phone Arsh Camacho MD Primary Care Provider [phone] Encounter Details Date Type Department Care Team (Late Contact Info) Description 04/10/2003 Outpatient Historical [facility] Internal Medicine [address] [address] Arsh Camacho MD [address] [place] [address] Social History Tobacco Use Types Packs/Day Years Used Date Smoking Tobacco: Never Assessed Sex and Gender Information Value Date Recorded Sex Assigned at Male 01/26/2024 7:42 PM CDT Legal Sex Male 2:41 AM SOFTWARE TOOLS ENGINEER Gender Identity Male 01/26/2024 7:42 PM CDT Sexual Orientation Straight 01/26/2024 7: 42 PM CDT documented as of this encounter Last Filed Vital Signs Vital Sign Reading Time Taken Comments Blood Pressure 122/80 04/10/2003 11:45 AM SOFTWARE TOOLS ENGINEER Pulse - - Temperature - - Respiratory Rate - - Oxygen Saturation - - Inhaled Oxygen Concentration - - Weight 127.5 kg (281 lb) 04/10/2003 11:45 AM SOFTWARE TOOLS ENGINEER Height 190.5 cm (6' 3) 04/10/2003 11:45 AM SOFTWARE TOOLS ENGINEER Body Mass Index 35.12 04/10/2003 11:45 AM SOFTWARE TOOLS ENGINEER documented in this encounter Plan of Treatment Upcoming Encounters Date Type Department Care Team (Late Contact Info) Description 11/30/2024 3:20 PM CDT Office Visit [address] [place] [address] Arsh Camacho MD [address] [place] [address] [address] [place] [address] 01/09/2025 1:00 PM CDT Office Visit [facility] HEART AND VASCULAR EP AT [address] [place] [address] Robert Falcon MD [address] [place] [address] 2014 [place] [address] 04/02/2025 1:20 PM SOFTWARE TOOLS ENGINEER Office Visit [address] [place] [address] Arsh Camacho MD [address] [place] [address] 102 [place] [address] documented as of this encounter Visit Diagnoses Not on filedocumented in this encounter Care Teams Claims Administrator Relationship Specialty Start Date End Date Arsh Camacho MD PCP - General 07/27/07 documented as of this encounter
--- OUTSIDE RECORDS SUMMARY | 2024-11-24 16:55 | XMS_ITS | Encounter Summary ---
Author Organization [facility] Address [address] [place] [address] Care Team Providers Care Campground Hand Name Role Phone Arsh Camacho MD Primary Care Provider Encounter Details Date Type Department Care Team (Late st Contact Info) Description 05/28/2004 Outpatient Historical [facility] Internal Medicine [address] [address] Arsh Camacho MD [address] [place] [address] [address] [place] [address] Social History Tobacco Use Types Packs/Day Years Used Date Smoking Tobacco: Never Assessed Sex and Gender Information Value Date Recorded Sex Assigned at Male 01/26/2024 7:42 PM CDT Legal Sex Male 2:41 AM ARCHITECTURAL COATING FINISHER Gender Identity Male 01/26/2024 7:42 PM CDT Sexual Orientation Straight 01/26/2024 7: 42 PM CDT documented as of this encounter Plan of Treatment Upcoming Encounters Date Type Department Care Team (Late st Contact Info) Description 11/30/2024 3:20 PM CDT Office Visit [facility] Primary Care [address] [place] [address] Arsh Camacho MD [address] [place] [address] [address] [place] [address] 01/09/2025 1:00 PM CDT Office Visit [facility] HEART AND VASCULAR EP AT [facility] [address] [facility] [address] [place] [address] Robert Falcon MD [address] [facility] [address] [place] [address] 04/02/2025 1:20 PM ARCHITECTURAL COATING FINISHER Office Visit [facility] Primary Care [address] [place] [address] Arsh Camacho MD [address] [place] [address] [address] [place] [address] documented as of this encounter Visit Diagnoses Not on filedocumented in this encounter Care Teams Campground Hand Relationship Specialty Start Date End Date Arsh Camacho MD PCP - General 07/27/07 documented as of this encounter
--- OUTSIDE RECORDS SUMMARY | 2024-11-24 16:55 | XMS_ITS | Encounter Summary ---
Author Organization [facility] Address [address] [place] [address] Care Team Providers Care Boring Mill Operator For Metal Name Role Phone Arsh Camacho MD Primary Care Provider [phone] Encounter Details Date Type Department Care Team (Late Contact Info) Description 04/05/2007 Outpatient Historical [facility] Internal Medicine [address] [address] Arsh Camacho MD [address] [place] [address] Social History Tobacco Use Types Packs/Day Years Used Date Smoking Tobacco: Never Assessed Sex and Gender Information Value Date Recorded Sex Assigned at Male 01/26/2024 7:42 PM CDT Legal Sex Male 2:41 AM PIZZA BAKER Gender Identity Male 01/26/2024 7:42 PM CDT Sexual Orientation Straight 01/26/2024 7: 42 PM CDT documented as of this encounter Last Filed Vital Signs Vital Sign Reading Time Taken Comments Blood Pressure 124/70 04/05/2007 3:30 PM PIZZA BAKER Pulse - - Temperature - - Respiratory Rate - - Oxygen Saturation - - Inhaled Oxygen Concentration - - Weight 131.1 kg (289 lb) 04/05/2007 3:30 PM PIZZA BAKER Height - - Body Mass Index 36.12 04/10/2003 11:45 AM PIZZA BAKER documented in this encounter Plan of Treatment Upcoming Encounters Date Type Department Care Team (Late Contact Info) Description 11/30/2024 3:20 PM CDT Office Visit [facility] Care [address] [place] [address] Arsh Camacho MD [address] [place] [address] [address] [place] [address] 01/09/2025 1:00 PM CDT Office Visit [facility] HEART AND VASCULAR EP AT [address] [place] [address] Robert Falcon MD [address] [place] [address] 2014 [place] [address] 04/02/2025 1:20 PM PIZZA BAKER Office Visit [address] [place] [address] Arsh Camacho MD [address] [place] [address] [place] [address] documented as of this encounter Visit Diagnoses Not on filedocumented in this encounter Care Teams Boring Mill Operator For Metal Relationship Specialty Start Date End Date Arsh Camacho MD PCP - General 07/27/07 documented as of this encounter
--- OUTSIDE RECORDS SUMMARY | 2024-11-24 16:55 | XMS_ITS | Encounter Summary ---
Author Organization [facility] Address [address] [place] [address] Care Team Providers Care Etl Programmer Name Role Phone Arsh Camacho MD Primary Care Provider [phone] Encounter Details Date Type Department Care Team (Late st Contact Info) Description 01/04/2007 Outpatient Historical [facility] Internal Medicine [address] [address] Arsh Camacho MD [address] [place] [address] 102 [place] [address] Social History Tobacco Use Types Packs/Day Years Used Date Smoking Tobacco: Never Assessed Sex and Gender Information Value Date Recorded Sex Assigned at Male 01/26/2024 7:42 PM CDT Legal Sex Male 2:41 AM ADULT DAY CARE WORKER Gender Identity Male 01/26/2024 7:42 PM CDT Sexual Orientation Straight 01/26/2024 7: 42 PM CDT documented as of this encounter Plan of Treatment Upcoming Encounters Date Type Department Care Team (Late st Contact Info) Description 11/30/2024 3:20 PM CDT Office Visit [facility] Primary Care [address] [place] [address] Arsh Camacho MD [address] [place] [address] [address] [place] [address] 01/09/2025 1:00 PM CDT Office Visit [facility] HEART AND VASCULAR EP AT [facility] [address] [facility] [address] [place] [address] Robert Falcon MD [address] [facility] [address] [place] [address] 04/02/2025 1:20 PM ADULT DAY CARE WORKER Office Visit [facility] Primary Care [address] [place] [address] Arsh Camacho MD [address] [place] [address] [address] [place] [address] documented as of this encounter Visit Diagnoses Not on filedocumented in this encounter Care Teams Etl Programmer Relationship Specialty Start Date End Date Arsh Camacho MD PCP - General 07/27/07 documented as of this encounter
--- OUTSIDE RECORDS SUMMARY | 2024-11-24 16:55 | XMS_ITS | Encounter Summary ---
Author Organization [facility] Address [address] [place] [address] Care Team Providers Care Forwarder Operator Name Role Phone Arsh Camacho MD Primary Care Provider [phone] Reason for Referral * Eval and Treat (Routine) - Open Specialty Diagnoses / Procedures Referred By Contac t Referred To Contact Diagnoses Leg wound, right, sequela Procedures [place] OFFICE/OUTPATIENT ESTABLISHED MOD MDM 30 MIN [place] OFFICE/OUTPATIENT NEW MODERATE MDM 45 MINUTES Arsh Camacho MD [address] [place] [address] [address] [place] [address] Phone: tel: fax: [address] [address] Phone: tel: fax: Referral ID Status Reason Start Date Expiration Date Visits Re quested Visits Authorized [id number] Open 11/24/2024 11/24/2025 1 1 Reason for Visit * Reason Comments Needs Orders Written Clinical Consult Before Scheduling Encounter Details Date Type Department Care Team (Late st Contact Info) Description 11/24/2024 Telephone [facility] Primary Care [address] [place] [address] Arsh Camacho MD [address] [place] [address] [address] [place] [address] Needs Orders Written; Clinical Consult Before Scheduling Social History Tobacco Use Types Packs/Day Years Used Date Smoking Tobacco: Former Cigarettes 0.5 10 1 04/08/1971 - 02/06/1982 Passive Smoke Exposure: Past Smokeless Tobacco: Never Comments:Quit 1986 Alcohol Use Standard Drinks/Week Comments Yes 7 (1 standard drink = 0.6 oz pure alcohol) Social wine maybe 10/week, very rarely drink beer Financial Resource Strain Answer Date R ecorded How hard is it for you to pa y for the very basics like food, housing, medical care, and heating? Not very hard 06/26/2021 Food Insecurity Answer Date Recorded In the past 12 months, have you worried that your food would run out before you had money to buy more? Never true 06/26/2021 In the past 12 months, did y ou run out of food and didn't have money to buy more? Never true 06/26/2021 Transportation Needs Answer Date Record ed In the past 12 months, has l ack of transportation kept you from medical appointments or from getting medications? No 06/26/2021 Lack of Transportation (Non-Medical) Not on file 06/26/2021 Sex and Gender Information Value Date Recorded Sex Assigned at Male 01/26/2024 7:42 PM CDT Legal Sex Male 2:41 AM CLIENT ARCHITECT Gender Identity Male 01/26/2024 7:42 PM CDT Sexual Orientation Straight 01/26/2024 7: 42 PM CDT documented as of this encounter Miscellaneous Notes * Telephone Encounter - Keena Rocha LPN - 11/24/2024 9:44 AM CDT Wound clinic referral pended, images requested from pt via MM. Appt scheduled with provider x 6 days. * Telephone Encounter - Hattie Spencer - 11/24/2024 9:12 AM CDT Copied from [facility] #[id number]. Topic: Symptomatic Care >> Nov 24, 2024 9:09 AM Hattie Swartz wrote: Has this patient seen any provider (current or former) at the requested clinic in the past? Yes, Select the appropriate age range and symptom Patient has symptoms and is seeking care. Caller Name: Maria Ines() Callback Number: [phone] Call Notes: Patient has a cut on his right leg that he has been seen for at Urgent Care but patient's wants Dr. Camacho to take a look as well. Age Range/Symptom: Adult 18+ - Laceration (Cut/Wound) Is there an encounter open? Yes Attempted transfer to [facility] line and no answer, message routed to [facility]asco. * Telephone Encounter - Hattie Spencer - 11/24/2024 9:09 AM CDT Copied from [facility] #[id number]. Topic: CPA Information Request - Order or Referral Request >> Nov 24, 2024 9:06 AM Hattie Swartz wrote: Caller Name: Maria Ines() Patient/Caregiver Callback Number: [phone] Call Notes: Patient was seen at [facility] for a wound on right leg and was told that he had a laceration and possibly cellulitis and would need to be treated at the wound clinic. Caller is requesting: New Referral Has the patient been seen for this issue? YES Requests Referral to Specialty: Wound Care Reason for referral (Symptoms / Diagnosis): Laceration on right leg and possible cellulitis Previously discussed with provider? Yes Is patient requesting a certain provider or facility? Yes Provider / Facility contact information: [facility] Phone- [phone] Date of Service: N/A documented in this encounter Plan of Treatment Upcoming Encounters Date Type Department Care Team (Late st Contact Info) Description 11/30/2024 3:20 PM CDT Office Visit [facility] Primary Care [address] [place] [address] Arsh Camacho MD [address] [place] [address] [address] [place] [address] 01/09/2025 1:00 PM CDT Office Visit [facility] HEART AND VASCULAR EP AT [facility] [address] [facility] [address] [place] [phone] Robert Falcon MD [address] [facility] [address] [place] [address] 04/02/2025 1:20 PM CLIENT ARCHITECT Office Visit [facility] Primary Care [address] [place] [address] Arsh Camacho MD [address] [place] [address] [address] [place] [address] Scheduled Referrals Name Type Priority Associated Diagnoses Orde r Schedule AMB REFERRAL TO WOUND CLINIC Outpatient Referral Routine Leg wound, right, sequela Ordered: 11/24/2024 documented as of this encounter Visit Diagnoses Diagnosis Leg wound, right, sequela- Primary documented in this encounter Care Teams Forwarder Operator Relationship Specialty Start Date End Date Arsh Camacho MD PCP - General 07/27/07 documented as of this encounter
--- OUTSIDE RECORDS SUMMARY | 2024-11-24 16:55 | XMS_ITS | Encounter Summary ---
Author Organization [facility] Address 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 Gender Identity Male 01/26/2024 7:42 PM CDT Sexual Orientation Straight 01/26/2024 7: 42 PM CDT documented as of this encounter Plan of Treatment Upcoming Encounters Date Type Department Care Team (Late st Contact Info) Description 11/30/2024 3:20 PM CDT Office Visit [facility] Primary Care [address] [place] [address] Arsh Camacho MD [address] [place] [address] [address] [place] [phone] 01/09/2025 1:00 PM CDT Office Visit [facility] HEART AND VASCULAR EP AT [facility] [address] [facility] [address] [place] [address] Robert Falcon MD [address] [facility] [address] [place] [phone] 04/02/2025 1:20 PM HANDBAG STITCHER Office Visit [facility] Primary Care [address] [place] [address] Arsh Camacho MD [address] [place] [address] [address] [place] [address] documented as of this encounter Visit Diagnoses Not on filedocumented in this encounter Care Teams Congregational Care Pastor Relationship Specialty Start Date End Date Arsh Camacho MD PCP - General 07/27/07 documented as of this encounter
--- OUTSIDE RECORDS SUMMARY | 2024-11-24 16:55 | XMS_ITS | Encounter Summary ---
Author Organization [facility] Address 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 CHIEF COMPLAINT Patient here for follow up atrial fibrillation, hyperlipidemia. HISTORY: HISTORY: 244.9-HYPOTHYROIDISM The hypothyroidism is stable. 272.4-HYPERLIPIDEMIA The patient is tolerating the medications. 427.31-ATRIAL FIBRILLATION The patient denies dyspnea on exertion, orthopnea, pedal edema, palpitations, and paroxysmal nocturnal dyspnea. V58.61-HALF-WAY USE OF ANTICOAGULANT (COUMADIN) recent lab reviewed ROS: CARDIAC: No chest pain, palpitations, orthopnea, dyspnea on exertion, or paroxysmal nocturnal dyspnea. RESPIRATORY: No dyspnea, cough, hemoptysis or wheezing. : No dysuria or hematuria. PAST MEDICAL HISTORY: reviewed SOCIAL HISTORY: TOBACCO USE: Has no significant smoking history. DISCUSSED SMOKING: neg. ALCOHOL: Drinks a minimal amount of alcohol. PHYSICAL EXAMINATION: CONSTITUTIONAL: GENERAL APPEARANCE: Healthy appearing patient in no distress. EARS, NOSE, MOUTH AND THROAT: ORAL: Inspection of gums, lips, palate, and teeth normal. No scars, lesions, or masses. Oral mucosaunremarkable with non-inflamed posterior pharynx. NECK/THYROID: Trachea midline. No thyroid enlargement, tenderness, [...] ulcers. No induration, obvious subcutaneous nodules or tightening. ASSESSMENT/PLAN: 244.9-HYPOTHYROIDISM con tmed, may need inc dose recheck LAB ORDERS: 3 mo Order number: [id number] Test Ordered: COMPREHENSIVE METABOLIC PANEL & GFR 1112 Order number: [id number] Test Ordered: LIPID PANEL 1078 Order number: [id number] Test Ordered: PT WITH INR 4020 Order number: [id number] Test Ordered: TSH 1720 Order number: [id number] Test Ordered: PSA, TOTAL 1002 272.4-HYPERLIPIDEMIA cont med, enc diet 427.31-ATRIAL FIBRILLATION cont med reassess LAB ORDERS: pt needs new standing order Order number: [id number] Test Ordered: PT WITH INR 4020 Order number: [id number] Test Ordered: INJ-PNEUMOVAX [id number] V58.61-TOE SEWER USE OF ANTICOAGULANT (COUMADIN) reviewed PREVENTIVE COUNSELING The patient was counseled regarding diet, regular sustained exercise for at least 30 minutes 3-4 times per week, the appropriate use of alcohol, prostate cancer screening. Patient Education: Risks, benefits, and possible side effects of medication(s) were reviewed with the patient. The adverse effects of Coumadin were discussed with the patient including the following:easy bruising, bleeding into the head, nose, intestine, and kidneys. The patient is aware of the need to contact the physician prior to any surgical and dental procedures. The patient was warned about the need to completely avoid any aspirin or anti-inflammatory products as well as any [id number] medications containing vitamin K. RETURN VISIT : Patient instructed to return in 3 months. Electronically Signed by: Arsh Camacho MD on Thursday, January 04, 2007 documented in this encounter Plan of Treatment Upcoming Encounters Date Type Department Care Team (Late st Contact Info) Description 11/30/2024 3:20 PM CDT Office Visit [address] [place] [place] [address] Arsh Camacho MD [address] [place] [phone] 01/09/2025 1:00 PM CDT Office Visit [facility] HEART AND VASCULAR EP AT [address] [place] [address] Robert Falcon MD [address] [place] [address] [address] [place] [address] 04/02/2025 1:20 PM MANAGER ENVIRONMENTAL AFFAIRS Office Visit [address] [place] [address] [place] [address] Arsh Camacho MD [address] [place] [phone] documented as of this encounter Visit Diagnoses Not on filedocumented in this encounter Care Teams Pyrotechnic Assembler Relationship Specialty Start Date End Date Arsh Camacho MD PCP - General 07/27/07 documented as of this encounter
--- OUTSIDE RECORDS SUMMARY | 2024-11-24 16:55 | XMS_ITS | Clinical Summary ---
Author Organization [facility] Address [address] [place] [address] Care Team Providers Care Assistant Prosecuting Attorney Name Role Phone Arsh Camacho MD Primary Care Provider Allergies Active Allergy Reactions Criticality Noted Date Comments Ezetimibe Itching Low 09/24/2022 Iodinated Contrast Media Nausea and Vomiting Low Morphine Nausea and Vomiting Low 10/17/2015 Shellfish Containing Products Hives High 2007 Medications multivitamin (DAILY-RAUL) tablet Take 1 Tablet by mouth daily. Active acetaminophen (TYLENOL) 325 mg tablet Take 2 Tablets (650 mg) by mouth every 6 hours as needed for Pain. 2 Active sennosides (SENOKOT) 8.6 mg tablet Take 1 Tablet (8.6 mg) by mouth daily. 2 Active Cholecalciferol -Soy Isoflavone 2,000-64 unit-mg Tablet 4,000 mg. 2 Active alendronate (FOSAMAX) 35 mg tablet Take 1 Tablet (35 mg) by mouth every 7 days. empty stomach before other meds,with 8oz of water, stay upright 30 min 12 Tablet 3 4 Active metoprolol succinate (TOPROL XL) 50 mg Extended Release 24 hour tablet TAKE TWO TABLETS BY MOUTH DAILY 180 Tablet 3 5 Active apixaban (Eliquis) 5 mg tablet Take 1 Tablet (5 mg) by mouth 2 times daily. 180 Tablet 3 5 Active cyclobenzaprine (FLEXERIL) 10 mg tablet TAKE ONE TABLET BY MOUTH TWICE A DAY NEEDED 60 Tablet 3 5 Active simvastatin (ZOCOR) 40 mg tablet TAKE ONE TABLET BY MOUTH DAILY 100 Tablet 3 5 Active levothyroxine 150 mcg tabletIndicatio ns:Hypothyroidi sm, unspecified type TAKE ONE TABLET BY MOUTH IN THE MORNING 90 Tablet 3 5 Active finasteride (PROSCAR) 5 mg tabletIndicatio ns:Abnormal PSA TAKE ONE TABLET BY MOUTH DAILY 90 Tablet 3 5 Active levothyroxine 150 mcg tabletIndicatio ns:Hypothyroidi sm, unspecified type TAKE ONE TABLET BY MOUTH IN THE MORNING 90 Tablet 3 5 025 Discontinued finasteride (PROSCAR) 5 mg tabletIndicatio ns:Abnormal PSA TAKE ONE TABLET BY MOUTH DAILY 90 Tablet 3 5 025 Discontinued Active Problems Patient Care Coordination No te Formatting of this note migh t be different from the original. Robert Falcon MD-[facility] @ [id number] 09/29/23 802629/3/24 AMW-10/11/2019 Problem Noted Date Diagnosed Date Osteopenia of multiple sites 09/24/2022 T9 vertebral fracture 04/25/2021 Paraspinal hematoma 04/25/2021 Right knee pain 04/25/2021 Fracture of one rib, left si de, initial encounter for closed fracture 04/25/2021 Prediabetes 07/30/2017 Serrated adenoma of colon 10/20/2015 Overview (01/03/2021): 09/2015 colonoscopy: small sessile serrated adenoma. Follow up screening colonoscopy 5 year. 12/2020: Incomplete exam to transverse colon. Check CT colonography. No follow up screening colonoscopy on basis of age? 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 Atrial fibrillation 04/10/2003 Hyperlipidemia 04/10/2003 Hypothyroidism 04/10/2003 Hypertrophy of prostate with out urinary obstruction and other lower urinary tract symptoms (LUTS) 04/10/2003 Resolved Problems Problem Noted Date Diagnosed Date Resolved Date Cardiomyopathy 10/14/2012 05/21/2021 Impaired fasting glucose 04/05/200708/2007 Need for prophylactic vaccin ation against Streptococcus pneumoniae (pneumococcus) 01/04/2007 08/02/2007 Diverticulosis of colon (wit hout mention of hemorrhage) 06/08/2006 08/02/2007 Screening for malignant neop lasm of the rectum 06/08/2006 08/02/2007 Special screening for malign ant neoplasm of prostate 12/10/2004 08/02/2007 Abdominal pain, generalized 05/28/2004 01/21/2010 Benign neoplasm of skin, site unspecified 05/28/2004 05/21/2021 Fall from stairs 05/21/2021 Acute metabolic encephalopathy 05/21/2021 Encounters Date Type Department Care Team Description 11/24/[address] [place] [address] Arsh Camacho MD Needs Orders Written; Clinical Consult Before Scheduling 11/22/[address] [place] [address] Arsh Camacho MD Hypothyroidism, unspecified type; Abnormal PSA 11/14/2024 External Device Data ST[facility] ABSTRACTION Provider, Abstract 10/11/2024 External Device Data [facility] ABSTRACTION Provider, Abstract 10/10/2024 External Device Data [facility] ABSTRACTION Provider, Abstract 10/06/[address] [place] [address] Karla Vora, MORTGAGE OPERATIONS MANAGER 09/26/2024 External Device Data [facility] ABSTRACTION Provider, Abstract 09/[facility]24 [facility] [place] [address] [place] [phone] Arsh Camacho MD 09/12/2024 4:00 PM CDT Office Visit [place] [address] [place] [phone] Arsh Camacho MD Chronic atrial fibrillation (CMS/HCC) (Primary Dx); Dilated cardiomyopathy (CMS/HCC); Hypothyroidism, unspecified type; Abnormal PSA; Other hyperlipidemia; Vitamin B12 deficiency (non anemic); Vitamin D deficiency; Prediabetes 09/12/2024 Abstract [facility] [address] [address] Arsh Camacho MD 09/05/2024 External Device Data STL ABSTRACTION Provider, Abstract from Last 3 Months Immunizations Immunization Administration Dates Next Due (ADACEL/BOOSTRIX)(10 YR UP) TDAP VACCINE, 0.5ML, IM 11/01/2014 (PFIZER)(12 YR UP) COVID-19 VACCINE - EMERGENCY USE AUTHORIZATION, MRNA, [id number](PF) 30 MCG/0.3 ML IM SUSP 02/03/2022,10/17/2021,07/03/2021,01/16,05/22/2020,05/01/2020 (PNEUMOVAX 23)(50 YRS UP) PN EUMOCOCCAL POLYSACCHARIDE (PPV23) 0.5 ML, IM 01/05/2019,04/12/2013,01/04/2007 (PREVNAR 13)(6 WKS UP) PNEUM OCOCCAL CONJUGATE (PCV13) 0.5 ML, IM 04/26/2014 (PREVNAR 20)(6 WKS UP) PNEUM OCOCCAL CONJUGATE VACCINE 20-VALENT (PCV20), POLYSACCHARIDE [id number] CONJUGATE, ADJUVANT 0.5 ML (PF) IM 12/02/2022 (Pfizer Bivalent)(12 Yr Up) COVID-19 Vaccine - Emergency Use Authorization, MRNA, Lnp-S(Pf) 30 Mcg/0.3 Ml Susp 01/16/2022 (SHINGRIX)(50 YRS UP) ZOSTER VACCINE RECOMBINANT, 0.5 ML, IM 12/15/2017,12/05/2017,10/19/2017,10/14 (TDVAX)(7 YRS UP) TETANUS AN D DIPHTHERIA TOXOIDS, ADSORBED (2 LF OF TETANUS TOXOID AND 2 LF OF DIPHTHERIA TOXOID), 0.5ML (PF), IM 01/05/2003 INFLUENZA VACCINE HIGH DOSE QUADRIVALENT 65 YR UP PF IM 11/15/2019 INFLUENZA VACCINE INACTIVATE D ADJUV, (65 YR UP), 0.5ML (PF), IM 01/19/2024 Influenza Seasonal Unspecifi ed Formulation IM 01/21/2024,12/02/2022,12/29/2021,11/15,11/22/2019,12/14/2015,12/07/2013 ,02/05/2013,12/27/2010,12/27/2009,12/27 Influenza Vaccine High Dose 65+ Yrs IM 9,12/16/2016 Influenza Vaccine Tri Adjuva nted 65+ PF IM 12/24/2017 Zoster Vaccine Live SQ 03/29/2012 Family History Medical History Relation Name Comments Cancer Father Other Mother Colon Cancer Neg Hx Relation Name Status Comments Father Mother Social History Tobacco Use Types Packs/Day Years Used Date Smoking Tobacco: Former Cigarettes 0.5 10 1 04/08/1971 - 02/06/1982 Passive Smoke Exposure: Past Smokeless Tobacco: Never Tobacco Cessation:Counseling Given: No Comments:Quit 1986 Alcohol Use Standard Drinks/Week Comments [...] PM CDT Legal Sex Male 2:41 AM [employer] GOL[employer]ACH Gender Identity Male 01/26/2024 7:42 PM CDT Sexual Orientation Straight 01/26/2024 7: 42 PM CDT Last Filed Vital Signs Vital Sign Reading Time Taken Comments Blood Pressure 131/85 09/12/2024 3:56 PM CDT Pulse 64 09/12/2024 3:56 PM CDT Temperature 36.4 C (97.5 F) 03/31/2023 1:39 PM [employer] Respiratory Rate 16 03/31/2023 1:39 PM [employer] Oxygen Saturation 98% 09/12/2024 3:56 PM CDT Inhaled Oxygen Concentration - - Weight 119.7 kg (264 lb) 09/12/2024 3:56 PM CDT Height 190.5 cm (6' 3) 09/12/2024 3:56 PM CDT Body Mass Index 33 09/12/2024 3:56 PM CDT Plan of Treatment Upcoming Encounters Date Type Department Care Team (Late st Contact Info) Description 11/30/2024 3:20 PM CDT Office Visit [facility] [address] [place] [phone] Arsh Camacho MD [address] [place] [address] [address] [place] [address] 01/09/2025 1:00 PM CDT Office Visit [facility] [place] [address] [facility] [address] [place] [address] Robert Falcon MD [facility] [address] [facility] [address] [place] [address] 04/02/2025 1:20 PM [employer] Office Visit [address] [place] [phone] Arsh Camacho MD [address] [place] [address] [address] [place] [phone] Health Maintenance Due Date Last Done Comments RSV VACCINE (60+ or ) (1 - 1-dose 75+ series) 01/12/2019 COVID-19 Vaccine (2023-2 5 season) 2023 02/03/2022, 01/16/2022, 10/17/2021, Additional history exists Medicare Ad[place]age ([place]) Preventative Visit/Annual Wellness Visit 03/29/2024 09/29/2023, 03/31/2023, 09/24/2022, Additional history exists INFLUENZA VACCINE (#1) 2024 , 01/19/2024, 12/02/2022, Additional history exists DTAP/TDAP/TD VACCINES (2 - T d or Tdap) 11/01/2024 11/01/2014, 01/05/2003 FIT/FOBT Q 1 year Discontinued 04/10/2008, , 05/28/2004 ZOSTER VACCINE Completed 12/15/2017, 11/2017, 10/19/2017, Additional history exists COLORECTAL SCREENING Discontinued 01/01/2021, 01/01/2021, 10/17/2015, Additional history exists PNEUMOCOCCAL VACCINE 50+ YEARS Completed 0 12/02/2022, 01/05/2019, 04/26/2014, Additional history exists Colorectal Cancer Screening Discontinued FIT-DNA Q 3 years Discontinued 04/29/2023 Flex Sig/CT Colonography Q 5 years Discontinued Medical Devices Implanted Type Area Propulsion Systems Engineer Device Identifier Shelf Expiration Date Model / Serial / Lot Hemostatic Surgiflo 8ml W/ Thrombin 2994 - [id number] Implanted:Qt y: 1 on 04/26/2021 by Rohan Blas MD at [facility] Hemostatic N/A: Spine Thoracic [employer] [id number] 07/26/2022 2994 / / [id number] Hemostatic Surgiflo 8ml W/ Thrombin 2994 - [id number] Implanted:Qt y: 1 on 04/26/2021 by Rohan Blas MD at [facility] Hemostatic N/A: Spine Thoracic [employer] [id number] 07/26/2022 2994 / / [id number] Hemostatic Surgiflo 8ml W/ Thrombin 2994 - [id number] Implanted:Qt y: 1 on 04/26/2021 by Rohan Blas MD at [facility] Hemostatic N/A: Spine Thoracic [employer] [id number] 07/26/2022 2994 / / [id number] Hemostatic Surgiflo 8ml W/ Thrombin 2993 [id number] Implanted:Qt y: 1 on 04/26/2021 by Rohan Blas MD at [facility] Hemostatic N/A: Spine Thoracic [employer] 05/26/20222993 / / [id number] Hemostatic Surgifoam 1gm 1977 [id number] Implanted:Qt y: 1 on 04/26/2021 by Rohan Blas MD at [facility] Hemostatic N/A: Spine Thoracic [employer] 11/14/20221977 / / [id number] 7.5x50 Screw Implanted:Qt y: 6 on 04/26/2021 by Rohan Blas MD at [facility] Screw N/A: Spine Thoracic [employer]- SOFAMOR DANEK [id number] / / Description:load #115, steri lized 04/22/21 8.5x50 Screw Implanted:Qt y: 4 on 04/26/2021 by Rohan Blas MD at [facility] Screw N/A: Spine Thoracic [employer]AM[employer]ANEK [id number] / / Description:load #113, steri lized 04/03/21 Set Screw Implanted:Qt y: 10 on 04/26/2021 by Rohan Blas MD at [facility] Screw N/A: Spine Thoracic [employer]K [id number] / / Description:load #110, steri lized 03/17/21 150mm Desmond Implanted:Qt y: 2 on 04/26/2021 by Rohan Blas MD at [facility] N/A: Spine Thoracic [employer] [id number] / / Description:load #19, steril ized 03/08/21. All Medtronic spinla hardware was processed on requisition, [id number]. Procedures Procedure Name Priority Date/Time Associated Diagnosis Comments VITAMIN D 25 HYDROXY Routine 09/05/2024 10:54 AM CDT Vitamin D deficiency VITAMIN B12 LEVEL Routine 09/05/2024 10: 54 AM CDT Vitamin B12 deficiency (non anemic) TSH Routine 09/05/2024 10:54 AM CDT Other hyperlipidemia LIPID PANEL Routine 09/05/2024 10:54 AM CDT Other hyperlipidemia COMPREHENSIVE METABOLIC PANEL Routine 09/05/2024 10:54 AM CDT Other hyperlipidemia CBC WITH DIFFERENTIAL Routine 09/05/2024 10:54 AM CDT Vitamin B12 deficiency (non anemic) COLON CANCER SCREEN, STOOL DNA Routine 04/29/2023 6:30 PM [employer] Screening for colon cancer COLONOSCOPY REPORT 01/01/2021 10 :06 AM CDT POC OCCULT BLOOD UP TO 3 CARDS Routine 04/10/2008 Encounter for Long-Term (Current) Use of Anticoagulants from Last 3 Months or Most Recently Relevant to Health Maintenance Results * (ABNORMAL) CBC WITH DIFFERENTIAL (09/05/2024 10:54 AM CDT) WBC 6.8 3.8 - 10.8 Thousand/ uL [facility] RBC 4.06(L) 4.20 - 5.80 Million/u L [facility] HEMOGLOBIN 14.1 13.2 - 17.1 g/dL [facility] HEMATOCRIT 42.6 38.5 - 50.0 % [facility] MCV 104.9(H) 80.0 - 100.0 fL [facility] MCH 34.7(H) 27.0 - 33.0 pg [facility] MCHC 33.1 32.0 - 36.0 g/dL [facility] Comment: For adults, a slight decrease in the calculated MCHC value (in the range of 30 to 32 g/dL) is most likely not clinically significant; however, it should be interpreted with caution in correlation with other red cell parameters and the patient's clinical condition. RDW 12.4 11.0 - 15.0 % [facility] PLATELETS 125(L) 140 - 400 Thousand/ uL [facility] MPV 12.3 7.5 - 12.5 fL [facility] NEUTROPHIL ABSOLUTE 4,814 1,500 - 7,800 cells/uL [facility] LYMPHOCYTE ABSOLUTE 1,244 850 - 3,900 cells/uL [facility] MONOCYTE ABSOLUTE 564 200 - 950 cells/uL [facility] EOSINOPHIL ABSOLUTE 136 15 - 500 cells/uL [facility] BASOPHILS ABSOLUTE 41 0 - 200 cells/uL [facility] NEUTROPHIL 70.8 % [facility] LYMPHOCYTES 18.3 % [facility] MONOCYTE 8.3 % [facility] EOSINOPHILS 2.0 % [facility] BASOPHILS 0.6 % [facility] Comment: FASTING:YES FASTING: YES Test Performed at: [place] [address] [address] [place] [phone] [facility] Vo Blood 09/05/2024 10:5 4 AM CDT 09/05/2024 10:54 AM CDT us Arsh Camacho MD HEMATOLOGY ORDERABLES Final R esult [facility] [phone] [place] [address] [address] [place] [address] * VITAMIN D 25 HYDROXY (09/05/2024 10:54 AM CDT) VITAMIN D, 25 OH, TOTAL 39 30 - 100 ng/mL [facility] Comment: Vitamin D Status 25-OH Vitamin D: Deficiency: <20 ng/mL Insufficiency: 20 - 29 ng/mL Optimal: > or = 30 ng/mL For 25-OH Vitamin D testing on patients on D2-supplementation and patients for whom quantitation of D2 and D3 fractions is required, the [facility](TM) 25-OH VIT D, (D2,D3), LC/MS/MS is recommended: order code 73962 (patients >2yrs). See Note 1 Note 1 For additional information, please refer to http://education.Golden Reviews/faq/UGN354 (This link is being provided for informational/ educational purposes only.) FASTING:YES FASTING: YES Test Performed at: [facility] [address] [address] [place] [phone] Annmarie Contreras MD Blood 09/05/2024 10:5 4 AM CDT 09/05/2024 10:54 AM CDT Arsh Camacho MD CHEMISTRY ORDERABLES Final Re sult [facility] [phone] [facility] [address] [place] [address] * TSH (09/05/2024 10:54 AM CDT) TSH 1.11 0.40 - 4.50 mIU/L [facility] Comment: FASTING:YES FASTING: YES Test Performed at: [place] [address] [place] [address] Annmarie Contreras Blood 09/05/2024 10:5 4 AM CDT 09/05/2024 10:54 AM CDT Arsh Camacho MD CHEMISTRY ORDERABLES Final Re sult Performing Organization Address City/[facility]/ZIP [facility] Phone Number [facility] [phone] [place] [address] [place] [address] * VITAMIN B12 LEVEL (09/05/2024 10:54 AM CDT) VITAMIN B12 520 200 - 1100 pg/mL [facility] Comment: FASTING:YES FASTING: YES Test Performed at: [facility] [address] [place] [address] Annmarie Contreras MD Blood 09/05/2024 10:5 4 AM CDT 09/05/2024 10:54 AM CDT Arsh Camacho MD CHEMISTRY ORDERABLES Final Re sult Performing Organization Address City/State/ZIP Co al Phone Number [facility] [phone] [facility] [address] [place] [address] * LIPID PANEL (09/05/2024 10:54 AM CDT) CHOLESTEROL 135 <200 mg/dL [facility] HDL 58 > OR = 40 mg/dL [facility] [place] TRIGLYCERIDE 60 <150 mg/dL [facility] LDL CALCULATED 63 mg/dL (calc) [facility] Comment: Reference range: <100 Desirable range <100 mg/dL for primary prevention; <70 mg/dL for patients with CHD or diabetic patients with > or = 2 CHD risk factors. LDL-C is now calculated using the Tereza calculation, which is a validated novel method providing better accuracy than the Friedewald equation in the estimation of LDL-C. Yair SS et al. EMILIE. 2013;310(19): 6847-8607 (http://education.Golden Reviews/faq/ZNP888) CHOL/HDL RATIO 2.3 <5.0 (calc) [facility] [place] NON-HDL CHOLESTEROL 77 <130 mg/dL (calc) [facility] Comment: For patients with diabetes plus 1 major ASCVD risk factor, treating to a non-HDL-C goal of <100 mg/dL (LDL-C of <70 mg/dL) is considered a therapeutic option. Test Performed at: [facility] [address] [place] [address] [facility] Blood 09/05/2024 10:5 4 AM CDT 09/05/2024 10:54 AM CDT us Arsh Camacho MD CHEMISTRY ORDERABLES Final Re sult Performing Organization Address City/State/ZIP [facility] Phone Number [facility] [phone] [facility] [address] [place] [address] * (ABNORMAL) COMPREHENSIVE METABOLIC PANEL (09/05/2024 10:54 AM CDT) GLUCOSE 118(H) 65 - 99 mg/dL [facility] janett Diaz Comment: Fasting reference interval For someone without known diabetes, a glucose value between 100 and 125 mg/dL is consistent with prediabetes and should be confirmed with a follow-up test. BUN 14 7 - 25 mg/dL [facility] CREATININE 0.82 0.70 - 1.22 mg/dL [facility] GFR 89 > OR = 60 mL/min/1. 73m2 [facility] BUN/CREAT RATIO SEE NOTE: 6 - 22 (calc) [facility] Diaz Comment: Not Reported: BUN and Creatinine are within reference range. SODIUM 142 135 - 146 mmol/L [facility] POTASSIUM 4.3 3.5 - 5.3 mmol/L [facility] CHLORIDE 107 98 - 110 mmol/L [facility] CO2 27 20 - 32 mmol/L [facility] CALCIUM 9.0 8.6 - 10.3 mg/dL [facility] TOTAL PROTEIN 6.6 6.1 - 8.1 g/dL [facility] ALBUMIN 4.2 3.6 - 5.1 g/dL [facility] GLOBULIN 2.4 1.9 - 3.7 g/dL (calc) [facility] ALBUMIN/GLOBULIN RATIO 1.8 1.0 - 2.5 (calc) [facility] BILIRUBIN TOTAL 1.1 0.2 - 1.2 mg/dL [facility] ALKALINE PHOSPHATASE 94 35 - 144 U/L [facility] AST 20 10 - 35 U/L [facility] ALT 17 9 - 46 U/L [facility] Comment: FASTING:YES FASTING: YES Test Performed at: [place] [place] [address] [place] [address] Annmarie Contreras Blood 09/05/2024 10:5 4 AM CDT 09/05/2024 10:54 AM CDT us Arsh Camacho MD CHEMISTRY ORDERABLES Final Re sult [facility] [phone] [place] [address] [place] [address] * COLON CANCER SCREEN, STOOL DNA (04/29/2023 6:30 PM [employer]) COLOGUARD RESULT Negative Negative [facility] Comment: NEGATIVE TEST RESULT. A negative Cologuard result indicates a low likelihood that a colorectal cancer (CRC) or advanced adenoma (adenomatous polyps with more advanced pre-malignant features) is present. The chance that a person with a negative Cologuard test has a colorectal cancer is less than 1 in 1500 (negative predictive value >99.9%) or has an advanced adenoma is less than 5.3% (negative predictive value 94.7%). These data are based on a prospective cross-sectional study of 10,000 individuals at average risk for colorectal cancer who were screened with both Cologuard and colonoscopy. (Eugenio Torres al, N Engl J Med 2014;370(14):3181-1742) The normal value (reference range) for this assay is negative. COLOGUARD RE-SCREENING RECOMMENDATION: Periodic colorectal cancer screening is an important part of preventive healthcare for asymptomatic individuals at average risk for colorectal cancer. Following a negative Cologuard result, the [place] [employer] and U.S. Multi-Society Task Force screening guidelines recommend a Cologuard re-screening interval of 3 years. References: [place] [employer] Guideline for Colorectal Cancer Screening: https://www.cancer.org/cancer/ohgbi-bvmkxe-boggbo/sugwslgcz-cokwrgomj-hrmsfmr/ac s-rec ommendations.html.; Natan DK, Den [place], Gilbert RosalesK, Colorectal Cancer Screening: Recommendations for Physicians and Patients from the U.S. Multi-Society Task Force on Colorectal Cancer Screening , Am J Gastroenterology 2017; 112:0725-8599. TEST DESCRIPTION: Composite algorithmic analysis of stool DNA-biomarkers with hemoglobin immunoassay. Quantitative values of individual biomarkers are not reportable and are not associated with individual biomarker result reference ranges. Cologuard is intended for colorectal cancer screening of adults of either sex, 45 years or older, who are at average-risk for colorectal cancer (CRC). Cologuard has been approved for use by the U.S. FDA. The performance of Cologuard was established in a cross sectional study of average-risk adults aged 50-84. Cologuard performance in patients ages 45 to 49 years was estimated by sub-group analysis of near-age groups. Colonoscopies performed for a positive result may find as the most clinically significant lesion: colorectal cancer [4.0%], advanced adenoma (including sessile serrated polyps greater than or equal to 1cm diameter) [20%] or non- advanced adenoma [31%]; or no colorectal neoplasia [45%]. These estimates are derived from a prospective cross-sectional screening study of 10,000 individuals at average risk for colorectal cancer who were screened with both Cologuard and colonoscopy. (Eugenio Rowland. et al, N Engl J Med 2014;370(14):1010-2435.) Cologuard may produce a false negative or false positive result (no colorectal cancer or precancerous polyp present at colonoscopy follow up). A negative Cologuard test result does not guarantee the absence of CRC or advanced adenoma (pre-cancer). The current Cologuard screening interval is every 3 years. ([place] [employer] and U.S. Multi-Society Task Force). Cologuard performance data in a 10,000 patient pivotal study using colonoscopy as the reference method can be accessed at the following location: www.Apiphany/results. Additional description of the Cologuard test process, warnings and precautions can be found at www.FreespeeogFigaro Systemsrd.com. Stool STOOL SPECIMEN / Unknown 04/29/2023 6:30 PM [employer] 04/30/2023 6:51 PM [employer] us Arsh Camacho MD BODY FLUIDS AND STOOLS Edited Result - Final [facility] CLIA # [id number] [address] , [address] [place] [address] * COLONOSCOPY REPORT (01/01/2021 10:06 AM CDT) Narrative Procedure Note Gatito Dunaway MD - 01/01/2021 8:41 AM CDT [facility] Endoscopy Patient Name: Yang Young Procedure Date: 01/01/2021 Date of : 1945 Attending MD: Gatito Dunaway MD Procedure: Colonoscopy Indications: Surveillance: Personal history of small serrated adenoma on last colonoscopy 09/2015. Providers: Gatito Dunaway MD Referring MD: Arsh Camacho MD Medicines: Propofol per Anesthesia Complications: No immediate complications. Procedure: Informed consent was obtained for the procedure, including moderate sedation after risks were discussed. Based on the pre-procedure assessment, including review of the patient's medical history, medications, allergies, and review of systems, the patient was deemed to be an appropriate candidate for sedation. A timeout was performed. Continuous ECG monitoring, pulse oximetry, blood pressure monitoring, and direct observation were performed. The Colonoscope was introduced through the anus and advanced to the transverse colon. The colonoscopy was technically difficult and complex due to significant looping. Estimated Blood Loss: Estimated blood loss: none. Findings: Multiple small and large-mouthed diverticula were found from sigmoid to transverse colon. The colon was redundant. The abdominal wall was flaccid making application of abdominal pressure less effective. The patient was also positioned supine without success. The small bowel enteroscope was used also without success. Internal hemorrhoids were found during retroflexion. The hemorrhoids were moderate. Impression: - Moderate ontiveros diverticulosis. - Internal hemorrhoids. - Incomplete exam to transverse colon. - No specimens collected. Recommendation: - Perform a virtual colonoscopy at appointment to be scheduled. Gatito Dunaway MD 01/01/2021 8:41:13 AM This report has been signed electronically. Number of Addenda: [address]; [place] [address] Gatito Dunaway MD GI PROCEDURE ORDERABLES Final Re sult * POC OCCULT BLOOD UP TO 3 CARDS (04/10/2008) OCCULT BLOOD #1 [facility] OCCULT BLOOD #2 [facility] OCCULT BLOOD #3 [facility] Stool specimen (specimen) Arsh Camacho MD POINT OF CARE TESTING Final R esult [facility] from Last 3 Months or Most Recently Relevant to Health Maintenance Insurance [employer] PPO MCR Advance Directives For more information, please contact: [phone] Documents on File Type Date Recorded 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 intubation): No Mechanical Ventilation (for respiratory distress) - Non-Invasive (i.e. BiPAP, CPAP): Yes Cardioversion - (Allow prior to Cardiopulmonary Arrest): Yes Vasopressors - (Allow prior to Cardiopulmonary A rrest): Yes Inotropic Agents - (Allow prior to Cardiopulmona ry Arrest): Yes External Pacing - (Allow prior to Cardiopulmonar y Arrest): Yes Invasive Monitoring - (Allow prior to Cardiopulm onary Arrest): Yes * Full Code Date Activated Date Inactivated Comments 01/01/2021 6:55 AM 01/01/2021 11:30 AM * Full Code Date Activated Date Inactivated Comments 10/17/2015 6:54 AM 10/17/2015 10:20 AM Care Teams Assistant Prosecuting Attorney Relationship Specialty Start Date End Date Arsh Camacho MD PCP - General 07/27/07
--- OUTSIDE RECORDS SUMMARY | 2024-11-24 16:55 | XMS_ITS | Encounter Summary ---
Author Organization [facility] Address [address] [place] [address] Care Team Providers Care Inventory Auditor Name Role Phone Arsh Camacho MD Primary Care Provider Encounter Details Date Type Department Care Team (Late st Contact Info) Description 05/28/2004 Outpatient Historical [facility] Internal Medicine [address] [address] Arsh Camacho MD [address] [place] [address] [address] [place] [address] Social History Tobacco Use Types Packs/Day Years Used Date Smoking Tobacco: Never Assessed Sex and Gender Information Value Date Recorded Sex Assigned at Male 01/26/2024 7:42 PM CDT Legal Sex Male 2:41 AM EDITOR AT LARGE Gender Identity Male 01/26/2024 7:42 PM CDT Sexual Orientation Straight 01/26/2024 7: 42 PM CDT documented as of this encounter Plan of Treatment Upcoming Encounters Date Type Department Care Team (Late st Contact Info) Description 11/30/2024 3:20 PM CDT Office Visit [facility] Primary Care [address] [place] [address] Arsh Camacho MD [address] [place] [address] [address] [place] [address] 01/09/2025 1:00 PM CDT Office Visit [facility] HEART AND VASCULAR EP AT [facility] [address] [facility] [address] [place] [address] Robert Falcon MD [address] [facility] [address] [place] [address] 04/02/2025 1:20 PM EDITOR AT LARGE Office Visit [facility] Primary Care [address] [place] [address] Arsh Camacho MD [address] [place] [address] [address] [place] [address] documented as of this encounter Visit Diagnoses Not on filedocumented in this encounter Care Teams Inventory Auditor Relationship Specialty Start Date End Date Arsh Camacho MD PCP - General 07/27/07 documented as of this encounter
--- OUTSIDE RECORDS SUMMARY | 2024-11-24 16:55 | XMS_ITS | Encounter Summary ---
Author Organization [facility] Address [address] [place] [address] Care Team Providers Care Vehicle Detailer Name Role Phone Arsh Camacho MD Primary Care Provider [phone] Encounter Details Date Type Department Care Team (Late Contact Info) Description 01/30/2004 Outpatient Historical [facility] Internal Medicine [address] [address] Arsh Camacho MD [address] [place] [address] Social History Tobacco Use Types Packs/Day Years Used Date Smoking Tobacco: Never Assessed Sex and Gender Information Value Date Recorded Sex Assigned at Male 01/26/2024 7:42 PM CDT Legal Sex Male 2:41 AM SOLE LEVELER MACHINE Gender Identity Male 01/26/2024 7:42 PM CDT Sexual Orientation Straight 01/26/2024 7: 42 PM CDT documented as of this encounter Last Filed Vital Signs Vital Sign Reading Time Taken Comments Blood Pressure 124/70 01/30/2004 10:45 AM SOLE LEVELER MACHINE Pulse - - Temperature - - Respiratory Rate - - Oxygen Saturation - - Inhaled Oxygen Concentration - - Weight 123.8 kg (273 lb) 01/30/2004 10:45 AM SOLE LEVELER MACHINE Height - - Body Mass Index 34.12 04/10/2003 11:45 AM SOLE LEVELER MACHINE documented in this encounter Plan of Treatment Upcoming Encounters Date Type Department Care Team (Late Contact Info) Description 11/30/2024 3:20 PM CDT Office Visit [facility] Care [address] [place] [address] Arsh Camacho MD [address] [place] [address] [address] [place] [address] 01/09/2025 1:00 PM CDT Office Visit [facility] HEART AND VASCULAR EP AT [address] [place] [address] Robert Falcon MD [address] [place] [address] [address] [place] [address] 04/02/2025 1:20 PM SOLE LEVELER MACHINE Office Visit [address] [place] [address] Arsh Camacho MD [address] [place] [address] [place] [address] documented as of this encounter Visit Diagnoses Not on filedocumented in this encounter Care Teams Vehicle Detailer Relationship Specialty Start Date End Date Arsh Camacho MD PCP - General 07/27/07 documented as of this encounter
--- OUTSIDE RECORDS SUMMARY | 2024-11-24 16:55 | XMS_ITS | Encounter Summary ---
Author Organization [facility] Address [address] [place] [address] Care Team Providers Care Driver/Guide Name Role Phone Arsh Camacho MD Primary Care Provider [phone] Encounter Details Date Type Department Care Team (Late st Contact Info) Description 12/22/2006 Orders Only [facility] Internal Medicine [address] [address] Arsh Camacho MD [address] [place] [address] [address] [place] [address] Social History Tobacco Use Types Packs/Day Years Used Date Smoking Tobacco: Never Assessed Sex and Gender Information Value Date Recorded Sex Assigned at Male 01/26/2024 7:42 PM CDT Legal Sex Male 2:41 AM RN WOUND Gender Identity Male 01/26/2024 7:42 PM CDT Sexual Orientation Straight 01/26/2024 7: 42 PM CDT documented as of this encounter Plan of Treatment Upcoming Encounters Date Type Department Care Team (Late st Contact Info) Description 11/30/2024 3:20 PM CDT Office Visit [facility] Primary Care [address] [place] [address] Arsh Camacho MD [address] [place] [address] [address] [place] [address] 01/09/2025 1:00 PM CDT Office Visit [facility] HEART AND VASCULAR EP AT [facility] [address] [facility] [address] [place] [address] Robert Falcon MD [address] [facility] [address] [place] [address] 04/02/2025 1:20 PM RN WOUND Office Visit [facility] Primary Care [address] [place] [address] Arsh Camacho MD [address] [place] [address] [address] [place] [address] documented as of this encounter Visit Diagnoses Not on filedocumented in this encounter Care Teams Driver/Guide Relationship Specialty Start Date End Date Arsh Camacho MD PCP - General 07/27/07 documented as of this encounter
--- OUTSIDE RECORDS SUMMARY | 2024-11-24 16:55 | XMS_ITS | Encounter Summary ---
Author Organization [facility] Address [address] [place] [address] Care Team Providers Care Bowling Alley Refinisher Name Role Phone Arsh Camacho MD Primary Care Provider [phone] Encounter Details Date Type Department Care Team (Late Contact Info) Description 09/07/2006 Outpatient Historical [facility] Internal Medicine [address] [address] Arsh Camacho MD [address] [place] [address] Social History Tobacco Use Types Packs/Day Years Used Date Smoking Tobacco: Never Assessed Sex and Gender Information Value Date Recorded Sex Assigned at Male 01/26/2024 7:42 PM CDT Legal Sex Male 2:41 AM WAFER FABRICATION OPERATOR Gender Identity Male 01/26/2024 7:42 PM CDT Sexual Orientation Straight 01/26/2024 7: 42 PM CDT documented as of this encounter Last Filed Vital Signs Vital Sign Reading Time Taken Comments Blood Pressure 130/78 09/07/2006 3:30 PM CDT Pulse - - Temperature - - Respiratory Rate - - Oxygen Saturation - - Inhaled Oxygen Concentration - - Weight 126.1 kg (278 lb) 09/07/2006 3:30 PM CDT Height - - Body Mass Index 34.75 04/10/2003 11:45 AM WAFER FABRICATION OPERATOR documented in this encounter Plan of Treatment Upcoming Encounters Date Type Department Care Team (Late Contact Info) Description 11/30/2024 3:20 PM CDT Office Visit [address] [place] [address] Arsh Camacho MD [address] [place] [address] [address] [place] [address] 01/09/2025 1:00 PM CDT Office Visit [facility] HEART AND VASCULAR EP AT [address] [place] [address] Robert Falcon MD [address] [place] [address] [address] [place] [address] 04/02/2025 1:20 PM WAFER FABRICATION OPERATOR Office Visit [address] [place] [address] Arsh Camacho MD [address] [place] [address] [address] [place] [address] documented as of this encounter Visit Diagnoses Not on filedocumented in this encounter Care Teams Bowling Alley Refinisher Relationship Specialty Start Date End Date Arsh Camacho MD PCP - General 07/27/07 documented as of this encounter
--- OUTSIDE RECORDS SUMMARY | 2024-11-24 16:55 | XMS_ITS | Encounter Summary ---
Author Organization [facility] Address [address] [place] [address] Care Team Providers Care Headend Technician Name Role Phone Arsh Camacho MD Primary Care Provider [phone] Encounter Details Date Type Department Care Team (Late Contact Info) Description 08/06/2004 Outpatient Historical [facility] Internal Medicine [address] [address] Arsh Camacho MD [address] [place] [address] Social History Tobacco Use Types Packs/Day Years Used Date Smoking Tobacco: Never Assessed Sex and Gender Information Value Date Recorded Sex Assigned at Male 01/26/2024 7:42 PM CDT Legal Sex Male 2:41 AM MANAGER ED Gender Identity Male 01/26/2024 7:42 PM CDT Sexual Orientation Straight 01/26/2024 7: 42 PM CDT documented as of this encounter Last Filed Vital Signs Vital Sign Reading Time Taken Comments Blood Pressure 140/80 08/06/2004 10:45 AM CDT Pulse - - Temperature - - Respiratory Rate - - Oxygen Saturation - - Inhaled Oxygen Concentration - - Weight 123.8 kg (273 lb) 08/06/2004 10:45 AM CDT Height - - Body Mass Index 34.12 04/10/2003 11:45 AM MANAGER ED documented in this encounter Plan of Treatment Upcoming Encounters Date Type Department Care Team (Late Contact Info) Description 11/30/2024 3:20 PM CDT Office Visit [address] [place] [address] Arsh Camacho MD [address] [place] [address] [address] [place] [address] 01/09/2025 1:00 PM CDT Office Visit [facility] HEART AND VASCULAR EP AT [address] [place] [address] Robert Falcon MD [address] [place] [address] [address] [place] [address] 04/02/2025 1:20 PM MANAGER ED Office Visit [address] [place] [address] Arsh Camacho MD [address] [place] [address] [address] [place] [address] documented as of this encounter Visit Diagnoses Not on filedocumented in this encounter Care Teams Headend Technician Relationship Specialty Start Date End Date Arsh Camacho MD PCP - General 07/27/07 documented as of this encounter
--- OUTSIDE RECORDS SUMMARY | 2024-11-24 16:55 | XMS_ITS | Encounter Summary ---
Author Organization [facility] Address [address] [place] [address] Care Team Providers Care Band Maker Name Role Phone Arsh Camacho MD Primary Care Provider [phone] Encounter Details Date Type Department Care Team (Late st Contact Info) Description 04/05/2007 Orders Only [facility] Internal Medicine [address] [address] Arsh Camacho MD [address] [place] [address] Social History Tobacco Use Types Packs/Day Years Used Date Smoking Tobacco: Never Assessed Sex and Gender Information Value Date Recorded Sex Assigned at Male 01/26/2024 7:42 PM CDT Legal Sex Male 2:41 AM MANAGER LOSS PREVENTION Gender Identity Male 01/26/2024 7:42 PM CDT Sexual Orientation Straight 01/26/2024 7: 42 PM CDT documented as of this encounter Progress Notes * Arsh Camacho MD - 08/10/2007 5:08 PM CDT WEIGHT: 289lbs BLOOD PRESSURE: 124/70 Right Arm Sitting NURSE NAME: Deandra Pappas R TOBACCO USE Patient does not currently use tobacco. CHIEF COMPLAINT Patient here for follow up atrial fibrillation, hyperlipidemia, hypothyroidism. HISTORY: HISTORY: 244.9-HYPOTHYROIDISM The hypothyroidism is stable. 272.4-HYPERLIPIDEMIA The patient`s most recent labs reviewed. 427.31-ATRIAL FIBRILLATION The patient denies dyspnea on exertion, orthopnea, pedal edema, palpitations, and paroxysmal nocturnal dyspnea. 600.00-BPH W/O OBSTRUCTION psa stable ROS: ENDOCRINE: No heat or cold intolerance, no excessive thirst. CARDIAC: No chest pain, palpitations, orthopnea, dyspnea on exertion, or paroxysmal nocturnal dyspnea. RESPIRATORY: No dyspnea, cough, hemoptysis or wheezing. : No dysuria or hematuria. GI: No abdominal pain, nausea, vomiting, diarrhea, constipation, melena, or hematochezia. PAST MEDICAL HISTORY: reviewed SOCIAL HISTORY: TOBACCO USE: Has no significant smoking history. ALCOHOL: Drinks a minimal amount of alcohol. PHYSICAL EXAMINATION: CONSTITUTIONAL: GENERAL APPEARANCE: Healthy appearing patient in no distress. EARS, NOSE, MOUTH AND THROAT: ORAL: OROPHARYNX ERYTHEMATOUS. NECK/THYROID: Trachea midline. No thyroid enlargement, tenderness, [...] obvious subcutaneous nodules or tightening. ASSESSMENT/PLAN: 244.9-HYPOTHYROIDISM cont med, brand, reassess 272.4-HYPERLIPIDEMIA cont med, enc diet and ex 427.31-ATRIAL FIBRILLATION INR erratic recheck LAB ORDERS: 4 mo Order number: [id number] Test Ordered: COMPREHENSIVE METABOLIC PANEL & GFR 1112 Order number: [id number] Test Ordered: HEMOGLOBIN A1C 1814 Order number: [id number] Test Ordered: LIPID PANEL 1078 Order number: [id number] Test Ordered: TSH 1720 Order number: [id number] Test Ordered: PT WITH INR 4020 600.00-BPH W/O OBSTRUCTION stable 790.21-ABNORMAL FASTING BLOOD GLUCOSE enc diet recheck lab PREVENTIVE COUNSELING The patient was counseled regarding diet, regular sustained exercise for at least 30 minutes 3-4 times per week. Patient Education: The adverse effects of Coumadin were discussed with the patient including the following: easy bruising, bleeding into the head, nose, intestine, and kidneys. The patient is aware of the need to contact the physician prior to any surgical and dental procedures. The patient was warned about the need to completely avoid any aspirin or anti-inflammatory products as well as any [id number] medications containing vitamin K. Risks, benefits, and possible side effects of medication(s) were reviewed with the patient. The patient was allowed to ask questions to stated satisfaction. RETURN VISIT : Patient instructed to return in 4 months. Electronically Signed by: Arsh Camacho MD on Thursday, April 05, 2007 documented in this encounter Plan of Treatment Upcoming Encounters Date Type Department Care Team (Late st Contact Info) Description 11/30/2024 3:20 PM CDT Office Visit [address] [place] [address] [place] [address] Arsh Camacho MD [address] [place] [address] [address] [place] [address] 01/09/2025 1:00 PM CDT Office Visit [facility] HEART AND VASCULAR EP AT [address] [place] [address] Robert Falcon MD [address] [place] [address] [address] [place] [address] 04/02/2025 1:20 PM MANAGER LOSS PREVENTION Office Visit [address] [place] [address] [place] [address] Arsh Camacho MD [address] [place] [address] [address] [place] [address] documented as of this encounter Visit Diagnoses Not on filedocumented in this encounter Care Teams Band Maker Relationship Specialty Start Date End Date Arsh Camacho MD PCP - General 07/27/07 documented as of this encounter
[2024-11-24 16:59] VITALS: BP 136/68; PULSE 79; RESP 20; TEMP 36.2; O2SAT 100
--- NOTE | 2024-11-24 17:01 | ED.WOUNDLAC ---
HPI - Wound/Laceration General Chief Complaint: Wound/Laceration <Pat Dueñas PA-C - Last Filed: 11/24/24 19:32> Stated Complaint: wound on leg, low BP <Pat Dueñas PA-C - Last Filed: 11/24/24 19:32> Time Seen by Provider: 11/24/24 17:01 <Pat Dueñas PA-C - Last Filed: 11/24/24 19:32> Focused HPI: Patient is an 79-year-old male who presents the ED via EMS with report of a laceration to his right lower leg. Patient reports having a wound to his right lateral lower leg for the past 3 weeks after cutting his leg on a coffee table corner. Has had persistent wound since then. Was seen at urgent care yesterday and referred to wound care, but has not been able to follow-up yet. Started on antibiotics for infection. Reports today he developed bleeding from the wound today. States it was pulsatile with his heartbeat. He is on Eliquis. He reports he saturated through to large bath towels with blood at which point EMS was called. EMS noted patient to be pale, diaphoretic, hypotensive down to 50s over 30s upon arrival. Given 1 L fluid bolus in route to the ED, brought here for further evaluation. Patient does report feeling improved currently. Blood pressure upon arrival in the 130 systolic. Patient denies current dizziness or lightheadedness. GENERAL: Well-appearing, well-nourished, and in no acute distress. HEAD: Normocephalic, atraumatic. CHEST: Clear to auscultation. ?No respiratory distress. HEART: Regular rate and rhythm.? NEURO: ?Alert and oriented x3. Patient screened in triage and initial orders placed.? ?Additional care and disposition to be based upon?diagnostic testing and treatment. <Pat Dueñas PA-C - Last Filed: 11/24/24 19:32> Source: patient <LEONIE Grullon Last Filed: 11/24/24 19:32> Mode of arrival: EMS <LEONIE Grullon Last Filed: 11/24/24 19:32> Limitations: no limitations <LEONIE Grullon Last Filed: 11/24/24 19:32> Related Data Home Medications: Home Medications ?Medication ?Instructions ?Recorded ?Confirmed ?Last Taken ?Type finasteride 5 mg tablet (Proscar) 5 mg PO DAILY 05/08/21 11/23/24 06/11/21 08:10 History levothyroxine 150 mcg tablet 150 mcg PO DAILY 05/08/21 11/23/24 06/11/21 05:35 History (Synthroid) multivitamin 1 tablet PO DAILY 05/08/21 11/23/24 06/11/21 08:10 History simvastatin 40 mg tablet (Zocor) 40 mg PO HS 05/08/21 11/23/24 06/10/21 20:25 History apixaban 5 mg tablet (Eliquis) 5 mg PO BID 06/06/21 11/23/24 06/06/21 09:00 History melatonin 10 mg tablet 10 mg PO HS PRN Insomnia 06/06/21 09/11/21 06/08/21 20:00 History metoprolol tartrate 50 mg tablet 50 mg PO BID 06/06/21 11/23/24 06/11/21 08:10 History cholecalciferol (vitamin D3) 50 100 mcg PO DAILY 09/11/21 09/11/21 Unknown History mcg (2,000 unit) capsule cyclobenzaprine 10 mg tablet mg 11/23/24 Unknown History <Pat Dueñas PA-C - Last Filed: 11/24/24 19:32> Allergies/Adverse Reactions: Allergies Allergy/AdvReac Type Severity Reaction Status Date / Time shellfish derived Allergy Anaphylactic Verified 11/23/24 13:56 Shock morphine AdvReac Vomiting Verified 11/23/24 13:56 <Pat Dueñas PA-C - Last Filed: 11/24/24 19:32> [facility] Past Medical History Medical History: Medical History Acute encephalopathy Afib BPH (benign prostatic hyperplasia) Cardiac dysrhythmia Chronic ischemic heart disease Diverticula of colon HLD (hyperlipidemia) Hypothyroidism Malignant melanoma neck Prediabetes Rib fracture Scoliosis of thoracic spine Swollen R knee <LEONIE Grullon Last Filed: 11/24/24 19:32> Surgical History Surgical History: Surgical History H/O hernia repair b/l inguinal and umbilcal History of tonsillectomy S/P fusion of thoracic spine <Pat Dueñas PA-C - Last Filed: 11/24/24 19:32> Family History Family History: Family History Father Pancreatic cancer Cancer Mother Osteoporosis Hypothyroidism <Pat Dueñas PA-C - Last Filed: 11/24/24 19:32> Social History Social History: Social History (Updated 09/11/21 @ 08:31 by Jackelyn Brown [facility]) 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 Head: atraumatic. EYES: EOMI, NOSE: Atraumatic NECK: Trachea midline RESPIRATORY: No increased rate of breathing CARDIOVASCULAR: RRR, ABDOMINAL: Non-distended MUSCULOSKELETAl: No obvious deformities NEURO: Alert. Moving 4/4 extremities SKIN:: Chronic stasis ulcers to the lower extremities. The wound was concerned has stopped bleeding. Is dressed with Vaseline gauze. No signs of infection. PSYCHIATRIC: Normal affect <Fredo Sumner MD - Last Filed: 11/24/24 20:58> Course Vital Signs Vital signs: Vital Signs Temperature 97.2 F L 11/24/24 16:59 Pulse Rate 79 11/24/24 16:59 Respiratory Rate 20 11/24/24 16:59 Blood Pressure 136/68 11/24/24 16:59 Pulse Oximetry 100 11/24/24 16:59 Oxygen Delivery Room Air 11/24/24 16:59 Temperature 97.2 F L 11/24/24 16:59 Pulse Rate 79 11/24/24 16:59 Respiratory Rate 20 11/24/24 16:59 Blood Pressure 136/68 11/24/24 16:59 Pulse Oximetry 100 11/24/24 16:59 Oxygen Delivery Room Air 11/24/24 16:59 <Pat Dueñas PA-C - Last Filed: 11/24/24 19:32> Vital Signs Temperature 97.2 F L 11/24/24 16:59 Pulse Rate 79 11/24/24 16:59 Respiratory Rate 20 11/24/24 16:59 Blood Pressure 136/68 11/24/24 16:59 Pulse Oximetry 100 11/24/24 16:59 Oxygen Delivery Room Air 11/24/24 16:59 Temperature 97.2 F L 11/24/24 16:59 Pulse Rate 79 11/24/24 16:59 Respiratory Rate 20 11/24/24 16:59 Blood Pressure 136/68 11/24/24 16:59 Pulse Oximetry 100 11/24/24 16:59 Oxygen Delivery Room Air 11/24/24 16:59 <Fredo uSmner MD - Last Filed: 11/24/24 20:58> MDM - Wound/Laceration MDM Narrative Medical decision making narrative: MSE by BIN in triage. <Pat Dueñas PA-C - Last Filed: 11/24/24 19:32> MSE by BIN in triage. -Course: 79-year-old male presenting with a bleeding wound on his leg. By time I evaluated the bleeding has stopped. Family was educated wound care and bleeding control. They will follow-up with her primary care physician wound care for further management. Per the EMS report he was pale and diaphoretic when they arrived. This seemed to resolve very quickly before and was likely a vasovagal reaction as opposed to hemorrhagic shock as he return to normal without intervention. During my evaluation the patient is well-appearing with stable vital signs no other complaints. -DDX includes but is not limited to: Chronic wound, wound infection, venous bleeding <Fredo Sumner MD - Last Filed: 11/24/24 20:58> Discharge Plan Discharge Clinical Impression: Bleeding <LEONIE Grullon Last Filed: 11/24/24 19:32> Patient Disposition: Home <LEONIE Grullon Last Filed: 11/24/24 19:32> Condition: Stable <LEONIE Grullon Last Filed: 11/24/24 19:32> Instructions: Antibiotic Form, Chronic Wounds (ED) <LEONIE Grullon Last Filed: 11/24/24 19:32> Additional Instructions: if you start bleeding please hold direct pressure. Follow-up with your primary care physician/wound care for further management. return if you are unable to control the bleeding or he develops any new symptoms. <LEONIE Grullon Last Filed: 11/24/24 19:32> Patient Language: Dominican <LEONIE Grullon Last Filed: 11/24/24 19:32> Prescriptions: No Action multivitamin Tablet 1 tablet PO DAILY simvastatin [Zocor] 40 mg Tablet 40 mg PO HS levothyroxine [Synthroid] 150 mcg Tablet 150 mcg PO DAILY finasteride [Proscar] 5 mg Tablet 5 mg PO DAILY cyclobenzaprine 10 mg tablet cephalexin 500 mg capsule 500 mg PO Q6H 10 Days Qty: 40 0RF doxycycline hyclate 100 mg tablet 100 mg PO BID 7 Days Qty: 14 0RF cholecalciferol (vitamin D3) 50 mcg (2,000 unit) capsule 100 mcg PO DAILY metoprolol tartrate 50 mg tablet 50 mg PO BID Patient Comments: pt taking two 50 mg daily Eliquis 5 mg tablet 5 mg PO BID melatonin 10 mg Tablet 10 mg PO HS PRN (Reason: Insomnia) polyethylene glycol 3350 [Miralax] 17 gram Powder In Packet 17 g PO QAM Qty: 30 0RF sennosides-docusate sodium [Senokot-S] 8.6-50 mg Tablet 2 tab PO BID Qty: 60 0RF acetaminophen 500 mg Tablet 1,000 mg PO Q6HR Qty: 90 0RF <LEONIE Grullon Last Filed: 11/24/24 19:32> Follow-up/Referrals: Doug,Arsh Ames MD [Primary Care Provider] <Pat Dueñas PA-C - Last Filed: 11/24/24 19:32>
--- OUTSIDE RECORDS SUMMARY | 2024-11-24 20:11 | XMS_ITS | Encounter Summary ---
Author Organization [facility] Address [address] [place] [address] Care Team Providers Care Assistant Director Of Plant Operations Name Role Phone Arsh Camacho MD Primary Care Provider [phone] Encounter Details Date Type Department Care Team (Late Contact Info) Description 04/08/2005 Outpatient Historical [facility] Internal Medicine [address] [address] Arsh Camacho MD [address] [place] [address] [address] [place] [address] Social History Tobacco Use Types Packs/Day Years Used Date Smoking Tobacco: Never Assessed Sex and Gender Information Value Date Recorded Sex Assigned at Male 01/26/2024 7:42 PM CDT Legal Sex Male 2:41 AM IT DESKTOP SUPPORT TECHNICIAN Gender Identity Male 01/26/2024 7:42 PM CDT Sexual Orientation Straight 01/26/2024 7: 42 PM CDT documented as of this encounter Last Filed Vital Signs Vital Sign Reading Time Taken Comments Blood Pressure 120/80 04/08/2005 10:00 AM IT DESKTOP SUPPORT TECHNICIAN Pulse - - Temperature - - Respiratory Rate - - Oxygen Saturation - - Inhaled Oxygen Concentration - - Weight 127 kg (280 lb) 04/08/2005 10:00 AM IT DESKTOP SUPPORT TECHNICIAN Height - - Body Mass Index 35 04/10/2003 11:45 AM IT DESKTOP SUPPORT TECHNICIAN documented in this encounter Plan of Treatment Upcoming Encounters Date Type Department Care Team (Late st Contact Info) Description 11/30/2024 3:20 PM CDT Office Visit [facility] Primary [address] [place] [address] Arsh Camacho MD [address] [place] [address] [address] [place] [address] 01/09/2025 1:00 PM CDT Office Visit [facility] HEART AND VASCULAR EP AT [address] [place] [phone] Robert Falcon MD [address] [place] [address] [address] [place] [address] 04/02/2025 1:20 PM IT DESKTOP SUPPORT TECHNICIAN Office Visit [facility] Primary Care [address] [phone] Arsh Camacho MD [address] [place] [address] [place] [address] documented as of this encounter Visit Diagnoses Not on filedocumented in this encounter Care Teams Assistant Director Of Plant Operations Relationship Specialty Start Date End Date Arsh Camacho MD PCP - General 07/27/07 documented as of this encounter
--- OUTSIDE RECORDS SUMMARY | 2024-11-24 20:11 | XMS_ITS | Encounter Summary ---
Author Organization [facility] Address [address] [place] [address] Care Team Providers Care Edge Banding Machine Offbearer Name Role Phone Arsh Camacho MD Primary Care Provider [phone] Encounter Details Date Type Department Care Team (Late st Contact Info) Description 06/08/2006 Orders Only [facility] Internal Medicine [address] [address] Arsh Camacho MD [address] [place] [address] Social History Tobacco Use Types Packs/Day Years Used Date Smoking Tobacco: Never Assessed Sex and Gender Information Value Date Recorded Sex Assigned at Male 01/26/2024 7:42 PM CDT Legal Sex Male 2:41 AM OFFSET PRESS OPERATOR Gender Identity Male 01/26/2024 7:42 [...] nocturnal dyspnea. 600.00-BPH W/O OBSTRUCTION sx stable V58.61-[facility]FP USE OF ANTICOAGULANT (COUMADIN) stble 562.10-DIVERTICULOSIS stable [...] 06/08/2006. LAB ORDERS: 3 mo Order number: [id number] Test Ordered: COMPREHENSIVE METABOLIC PANEL W/ GLOMERULAR FILTRATION RATE, ESTIMATED (EGFR) 54701 Order number: [id number] Test Ordered: LIPID PANEL 7600 Order number: [id number] Test Ordered: TSH 899 Order number: [id number] Test Ordered: PT WITH INR 8847 600.00-BPH W/O OBSTRUCTION recheck psa V58.61-MCFP USE OF ANTICOAGULANT (COUMADIN) stable 562.10-DIVERTICULOSIS stable LAB ORDERS: Order number: [id number] Test Ordered: HEMOCCULT SINGLE 64012 RETURN VISIT : Patient instructed to return in 3 months. Electronically Signed by: Arsh Camacho MD on Thursday, June 08, 2006 documented in this encounter Plan of Treatment Upcoming Encounters Date Type Department Care Team (Late st Contact Info) Description 11/30/2024 3:20 [place] [address] Arsh Camacho MD [address] [place] [address] 01/09/2025 1:00 PM CDT Office Visit [facility] HEART AND VASCULAR EP AT [address] [place] [address] Robert Falcon MD [address] [place] [address] [address] [place] [address] 04/02/2025 1:20 PM OFFSET PRESS [place]PER[place] [address] Arsh Camacho MD [address] [place] [address] documented as of this encounter Visit Diagnoses Not on filedocumented in this encounter Care Teams Edge Banding Machine Offbearer Relationship Specialty Start Date End Date Arsh Camacho MD PCP - General 07/27/07 documented as of this encounter
--- OUTSIDE RECORDS SUMMARY | 2024-11-24 20:11 | XMS_ITS | Encounter Summary ---
Author Organization [facility] Address [address] [place] [address] Care Team Providers Care Sales Project Engineer Name Role Phone Arsh Camacho MD Primary Care Provider [phone] Encounter Details Date Type Department Care Team (Late Contact Info) Description 02/09/2006 Outpatient Historical [facility] Internal Medicine [address] [address] Arsh Camacho MD [address] [place] [address] Social History Tobacco Use Types Packs/Day Years Used Date Smoking Tobacco: Never Assessed Sex and Gender Information Value Date Recorded Sex Assigned at Male 01/26/2024 7:42 PM CDT Legal Sex Male 2:41 AM SALES AND MARKETING ADMINISTRATOR Gender Identity Male 01/26/2024 7:42 PM CDT Sexual Orientation Straight 01/26/2024 7: 42 PM CDT documented as of this encounter Last Filed Vital Signs Vital Sign Reading Time Taken Comments Blood Pressure 130/80 02/09/2006 3:30 PM SALES AND MARKETING ADMINISTRATOR Pulse - - Temperature - - Respiratory Rate - - Oxygen Saturation - - Inhaled Oxygen Concentration - - Weight 125.2 kg (276 lb) 02/09/2006 3:30 PM SALES AND MARKETING ADMINISTRATOR Height - - Body Mass Index 34.5 04/10/2003 11:45 AM SALES AND MARKETING ADMINISTRATOR documented in this encounter Plan of Treatment Upcoming Encounters Date Type Department Care Team (Late Contact Info) Description 11/30/2024 3:20 PM CDT Office Visit [facility] Care [address] [place] [address] Arsh Camacho MD [address] [place] [address] [address] [place] [address] 01/09/2025 1:00 PM CDT Office Visit [facility] HEART AND VASCULAR EP AT [address] [place] [address] Robert Falcon MD [address] [place] [address] [address] [place] [address] 04/02/2025 1:20 PM SALES AND MARKETING ADMINISTRATOR Office Visit [address] [place] [address] Arsh Camacho MD [address] [place] [address] [place] [address] documented as of this encounter Visit Diagnoses Not on filedocumented in this encounter Care Teams Sales Project Engineer Relationship Specialty Start Date End Date Arsh Camacho MD PCP - General 07/27/07 documented as of this encounter
--- OUTSIDE RECORDS SUMMARY | 2024-11-24 20:11 | XMS_ITS | Encounter Summary ---
Author Organization [facility] Address [address] [place] [address] Care Team Providers Care Supervisor Alum Plant Name Role Phone Arsh Camacho MD Primary Care Provider [phone] Encounter Details Date Type Department Care Team (Late st Contact Info) Description 04/05/2007 Orders Only [facility] Internal Medicine [address] [address] Arsh Camacho MD [address] [place] [address] Social History Tobacco Use Types Packs/Day Years Used Date Smoking Tobacco: Never Assessed Sex and Gender Information Value Date Recorded Sex Assigned at Male 01/26/2024 7:42 PM CDT Legal Sex Male 2:41 AM TRUCK DRIVING INSTRUCTOR Gender Identity Male 01/26/2024 7:42 PM [...] recheck LAB ORDERS: 4 mo Order number: [id number] Test Ordered: COMPREHENSIVE METABOLIC PANEL & GFR 1112 Order number: [id number] Test Ordered: HEMOGLOBIN A1C 1814 Order number: [id number] Test Ordered: LIPID PANEL 1078 Order number: [id number] Test Ordered: TSH 1720 Order number: [id number] Test Ordered: PT WITH INR 4020 600.00-BPH [...] or anti-inflammatory products as well as any [id number] medications containing vitamin K. Risks, benefits, and [...] Description 11/30/2024 3:20 PM CDT Office Visit [address] [place] [address] [place] [address] Arsh Camacho MD [address] [place] [address] [address] [place] [address] 01/09/2025 1:00 PM CDT Office Visit [facility] HEART AND VASCULAR EP AT [address] [place] [address] Robert Falcon MD [address] [place] [address] 2014 [place] [address] 04/02/2025 1:20 PM TRUCK DRIVING INSTRUCTOR Office Visit [address] [place] [address] [place] [address] Arsh Camacho MD [address] [place] [address] [address] [place] [address] documented as of this encounter Visit Diagnoses Not on filedocumented in this encounter Care Teams Supervisor Alum Plant Relationship Specialty Start Date End Date Arsh Camacho MD PCP - General 07/27/07 documented as of this encounter
--- OUTSIDE RECORDS SUMMARY | 2024-11-24 20:11 | XMS_ITS | Encounter Summary ---
Author Organization [facility] Address [address] [place] [address] Care Team Providers Care Nuclear Fuel Processing Technician Name Role Phone Arsh Camacho MD Primary Care Provider [phone] Encounter Details Date Type Department Care Team (Late st Contact Info) Description 02/09/2006 Orders Only [facility] Internal Medicine [address] [address] Arsh Camacho MD [address] [place] [address] Social History Tobacco Use Types Packs/Day Years Used Date Smoking Tobacco: Never Assessed Sex and Gender Information Value Date Recorded Sex Assigned at Male 01/26/2024 7:42 PM CDT Legal Sex Male 2:41 AM VIDEO MACHINES MECHANIC Gender Identity Male 01/26/2024 7:42 PM CDT [...] contmed LAB ORDERS: 4 mo Order number: [id number] Test Ordered: COMPREHENSIVE METABOLIC PANEL W/ GLOMERULAR FILTRATION RATE, ESTIMATED (EGFR) 33260 Order number: [id number] Test Ordered: LIPID PANEL 7600 Order number: [id number] Test Ordered: TSH 899 Order number: [id number] Test Ordered: PT WITH INR 8847 Order number: [id number] Test Ordered: PSA 5363 600.00-BPH W/O OBSTRUCTION check at fu RETURN VISIT : Patient instructed to return in 4 months. Electronically Signed by: Arsh Camacho MD on Thursday, February 09, 2006 documented in this encounter Plan of Treatment Upcoming Encounters Date Type Department Care Team (Late st Contact Info) Description 11/30/2024 3:20 PM CDT Office Visit [facility] Primary Care [place] [address] [place] [phone] Arsh Camacho MD [address] [place] [address] [address] [place] [phone] 01/09/2025 1:00 PM CDT Office Visit [facility] HEART AND VASCULAR EP AT [address] [place] [address] Robert Falcon MD [address] [place] [address] [address] [place] [address] 04/02/2025 1:20 PM VIDEO MACHINES MECHANIC Office Visit [facility] Primary Care [address] [place] [address] Arsh Camacho MD [address] [place] [address] [address] [place] [address] documented as of this encounter Visit Diagnoses Not on filedocumented in this encounter Care Teams Nuclear Fuel Processing Technician Relationship Specialty Start Date End Date Arsh Camacho MD PCP - General 07/27/07 documented as of this encounter
--- OUTSIDE RECORDS SUMMARY | 2024-11-24 20:11 | XMS_ITS | Encounter Summary ---
Author Organization [facility] Address [address] [place] [address] Care Team Providers Care Induction Coordination Power Engineer Name Role Phone Arsh Camacho MD Primary Care Provider [phone] Encounter Details Date Type Department Care Team (Late st Contact Info) Description 06/08/[address] [facility] Internal Medicine [address] [address] Arsh Camacho MD [address] [place] [address] [address] [place] [address] Social History Tobacco Use Types Packs/Day Years Used Date Smoking Tobacco: Never Assessed Sex and Gender Information Value Date Recorded Sex Assigned at Male 01/26/2024 7:42 PM CDT Legal Sex Male 2:41 AM BOX TENDER Gender Identity Male 01/26/2024 7:42 PM CDT Sexual Orientation Straight 01/26/2024 7: 42 PM CDT documented as of this encounter Plan of Treatment Upcoming Encounters Date Type Department Care Team (Late st Contact Info) Description 11/30/2024 3:20 PM CDT Office Visit [facility] Primary Care [address] [place] [address] Arsh Camacho MD [address] [place] [address] [address] [place] [address] 01/09/2025 1:00 PM CDT Office Visit [facility] HEART AND VASCULAR EP AT [facility] [address] [facility] [address] [place] [address] Robert Falcon MD [address] [facility] [address] [place] [address] 04/02/2025 1:20 PM BOX TENDER Office Visit [facility] Primary Care [address] [place] [address] Arsh Camacho MD [address] [place] [address] [address] [place] [address] documented as of this encounter Visit Diagnoses Not on filedocumented in this encounter Care Teams Induction Coordination Power Engineer Relationship Specialty Start Date End Date Arsh Camacho MD PCP - General 07/27/07 documented as of this encounter
--- OUTSIDE RECORDS SUMMARY | 2024-11-24 20:11 | XMS_ITS | Encounter Summary ---
Author Organization [facility] Address [address] [place] [address] Care Team Providers Care Production Expediter Name Role Phone Arsh Camacho MD Primary Care Provider [phone] Encounter Details Date Type Department Care Team (Late st Contact Info) Description 01/04/2007 Outpatient Historical [facility] Internal Medicine [address] [address] Arsh Camacho MD [address] [place] [address] [address] [place] [address] Social History Tobacco Use Types Packs/Day Years Used Date Smoking Tobacco: Never Assessed Sex and Gender Information Value Date Recorded Sex Assigned at Male 01/26/2024 7:42 PM CDT Legal Sex Male 2:41 AM FREELANCE MAKEUP ARTIST Gender Identity Male 01/26/2024 7:42 PM CDT Sexual Orientation Straight 01/26/2024 7: 42 PM CDT documented as of this encounter Plan of Treatment Upcoming Encounters Date Type Department Care Team (Late st Contact Info) Description 11/30/2024 3:20 PM CDT Office Visit [facility] Primary Care [address] [place] [address] Arsh Camacho MD [address] [place] [address] [address] [place] [address] 01/09/2025 1:00 PM CDT Office Visit [facility] ([facility]3] HEART AND VASCULAR EP AT [facility] [address] [facility] [address] [place] [address] Robert Falcon MD [address] [facility] [address] [place] [address] 04/02/2025 1:20 PM FREELANCE MAKEUP ARTIST Office Visit [facility] Primary Care [address] [place] [address] Arsh Camacho MD [address] [place] [address] [address] [place] [address] documented as of this encounter Visit Diagnoses Not on filedocumented in this encounter Care Teams Production Expediter Relationship Specialty Start Date End Date Arsh Camacho MD PCP - General 07/27/07 documented as of this encounter
--- OUTSIDE RECORDS SUMMARY | 2024-11-24 20:11 | XMS_ITS | Encounter Summary ---
Author Organization [facility] Address [address] [place] [address] Care Team Providers Care Correctional Therapy Director Name Role Phone Arsh Camacho MD Primary Care Provider [phone] Encounter Details Date Type Department Care Team (Late Contact Info) Description 08/01/2003 Outpatient Historical [facility] Internal Medicine [address] [address] Arsh Camacho MD [address] [place] [address] Social History Tobacco Use Types Packs/Day Years Used Date Smoking Tobacco: Never Assessed Sex and Gender Information Value Date Recorded Sex Assigned at Male 01/26/2024 7:42 PM CDT Legal Sex Male 2:41 AM OTOLARYNGOLOGIST Gender Identity Male 01/26/2024 7:42 PM CDT [...] Body Mass Index 34.62 04/10/2003 11:45 AM OTOLARYNGOLOGIST documented in this encounter Plan of Treatment Upcoming Encounters Date Type Department Care Team (Late Contact Info) Description 11/30/2024 3:20 PM CDT Office Visit [address] [place] [address] Arsh Camacho MD [address] [place] [address] [address] [place] [address] 01/09/2025 1:00 PM CDT Office Visit [facility] HEART AND VASCULAR EP AT [address] [place] [address] Robert Falcon MD [address] [place] [address] [address] [place] [address] 04/02/2025 1:20 PM OTOLARYNGOLOGIST Office Visit [address] [place] [address] Arsh Camacho MD [address] [place] [address] [address] [place] [address] documented as of this encounter Visit Diagnoses Not on filedocumented in this encounter Care Teams Correctional Therapy Director Relationship Specialty Start Date End Date Arsh Camacho MD PCP - General 07/27/07 documented as of this encounter
--- OUTSIDE RECORDS SUMMARY | 2024-11-24 20:11 | XMS_ITS | Encounter Summary ---
Author Organization [facility] Address [address] [place] [address] Care Team Providers Care Stone Setter Apprentice Name Role Phone Arsh Camacho MD Primary Care Provider [phone] Encounter Details Date Type Department Care Team (Late Contact Info) Description 04/05/2007 Outpatient Historical [facility] Internal Medicine [address] [address] Arsh Camacho MD [address] [place] [address] Social History Tobacco Use Types Packs/Day Years Used Date Smoking Tobacco: Never Assessed Sex and Gender Information Value Date Recorded Sex Assigned at Male 01/26/2024 7:42 PM CDT Legal Sex Male 2:41 AM WELL HEAD PUMPER Gender Identity Male 01/26/2024 7:42 PM CDT Sexual Orientation Straight 01/26/2024 7: 42 PM CDT documented as of this encounter Last Filed Vital Signs Vital Sign Reading Time Taken Comments Blood Pressure 124/70 04/05/2007 3:30 PM WELL HEAD PUMPER Pulse - - Temperature - - Respiratory Rate - - Oxygen Saturation - - Inhaled Oxygen Concentration - - Weight 131.1 kg (289 lb) 04/05/2007 3:30 PM WELL HEAD PUMPER Height - - Body Mass Index 36.12 04/10/2003 11:45 AM WELL HEAD PUMPER documented in this encounter Plan of Treatment Upcoming Encounters Date Type Department Care Team (Late Contact Info) Description 11/30/2024 3:20 PM CDT Office Visit [facility] Care [address] [place] [address] Arsh Camacho MD [address] [place] [address] [address] [place] [address] 01/09/2025 1:00 PM CDT Office Visit [facility] HEART AND VASCULAR EP AT [address] [place] [address] Robert Falcon MD [address] [place] [address] [address] [place] [address] 04/02/2025 1:20 PM WELL HEAD PUMPER Office Visit [address] [place] [address] Arsh Camacho MD [address] [place] [address] [place] [address] documented as of this encounter Visit Diagnoses Not on filedocumented in this encounter Care Teams Stone Setter Apprentice Relationship Specialty Start Date End Date Arsh Camacho MD PCP - General 07/27/07 documented as of this encounter
--- OUTSIDE RECORDS SUMMARY | 2024-11-24 20:11 | XMS_ITS | Encounter Summary ---
Author Organization [facility] Address [address] [place] [address] Care Team Providers Care Talking Books Library Clerk Name Role Phone Arsh Camacho MD Primary Care Provider Encounter Details Date Type Department Care Team (Late st Contact Info) Description 01/04/2007 Outpatient Historical [facility] Internal Medicine [address] [address] Arsh Camacho MD [address] [place] [address] [address] [place] [address] Social History Tobacco Use Types Packs/Day Years Used Date Smoking Tobacco: Never Assessed Sex and Gender Information Value Date Recorded Sex Assigned at Male 01/26/2024 7:42 PM CDT Legal Sex Male 2:41 AM DISPENSING OPTICIAN Gender Identity Male 01/26/2024 7:42 PM CDT Sexual Orientation Straight 01/26/2024 7: 42 PM CDT documented as of this encounter Plan of Treatment Upcoming Encounters Date Type Department Care Team (Late st Contact Info) Description 11/30/2024 3:20 PM CDT Office Visit [facility] Primary Care [address] [place] [address] Arsh Camacho MD [address] [place] [address] [address] [place] [address] 01/09/2025 1:00 PM CDT Office Visit [facility] HEART AND VASCULAR EP AT [facility] [address] [facility] [address] [place] [address] Robert Falcon MD [address] [facility] [address] [place] [address] 04/02/2025 1:20 PM DISPENSING OPTICIAN Office Visit [facility] Primary Care [address] [place] [address] Arsh Camacho MD [address] [place] [address] [address] [place] [address] documented as of this encounter Visit Diagnoses Not on filedocumented in this encounter Care Teams Talking Books Library Clerk Relationship Specialty Start Date End Date Arsh Camacho MD PCP - General 07/27/07 documented as of this encounter
--- OUTSIDE RECORDS SUMMARY | 2024-11-24 20:11 | XMS_ITS | Encounter Summary ---
Author Organization [facility] Address [address] [place] [address] Care Team Providers Care Cripple Worker Name Role Phone Arsh Camacho MD Primary Care Provider [phone] Encounter Details Date Type Department Care Team (Late st Contact Info) Description 08/05/2005 Orders Only [facility] Internal Medicine [address] [address] Arsh Camacho MD [address] [place] [address] Social History Tobacco Use Types Packs/Day Years Used Date Smoking Tobacco: Never Assessed Sex and Gender Information Value Date Recorded Sex Assigned at Male 01/26/2024 7:42 PM CDT Legal Sex Male 2:41 AM TELECOM NETWORK MANAGER Gender Identity Male 01/26/2024 7:42 PM [...] noted from the medication presently being used. V58.61-AIR CONDITIONING SERVICE TECHNICIAN USE OF ANTICOAGULANT (COUMADIN) ROS: CARDIAC: No [...] or tightening.small lacerations on feet--was working on VSS Monitoring ASSESSMENT/PLAN: 244.9-HYPOTHYROIDISM inc med MEDICATIONS: SYNTHROID ORAL TABLET 112 MCG, 1 Every Day, 90 Dispensed, 3 Fills, 90 Duration/Days Supply, status:NEW PRESCRIPTION, 08/05/2005. 272.4-HYPERLIPIDEMIA try alt med MEDICATIONS: VYTORIN ORAL TABLET 10-40 MG, 1 Every Day, 90 Dispensed, status: NEW PRESCRIPTION, 08/05/2005. 427.31-ATRIAL FIBRILLATION cont med V58.61-AIR CONDITIONING SERVICE TECHNICIAN USE OF ANTICOAGULANT (COUMADIN) stable HEALTH MAINTENANCE: pt to schedule colonoscopy- discussed RETURN VISIT : Patient instructed to return in 3 months. Electronically Signed by: Arsh Camacho MD on Friday, August 05, 2005 documented in this encounter Plan of Treatment Upcoming Encounters Date Type Department Care Team (Late st Contact Info) Description 11/30/2024 3:20 PM CDT Office Visit [address] [place] [address] [place] [address] Arsh Camacho MD [address] [place] [address] [address] [place] [address] 01/09/2025 1:00 PM CDT Office Visit [facility] HEART AND VASCULAR EP AT [place] [address] [facility] [address] [place] [address] Robert Falcon MD [address] [place] [address] [address] [place] [address] 04/02/2025 1:20 PM TELECOM NETWORK MANAGER Office Visit [address] [place] [address] Arsh Camacho MD [address] [place] [address] [address] [place] [address] documented as of this encounter Visit Diagnoses Not on filedocumented in this encounter Care Teams Cripple Worker Relationship Specialty Start Date End Date Arsh Camacho MD PCP - General 07/27/07 documented as of this encounter
--- OUTSIDE RECORDS SUMMARY | 2024-11-24 20:11 | XMS_ITS | Encounter Summary ---
Author Organization [facility] Address [address] [place] [address] Care Team Providers Care Warehouser Name Role Phone Arsh Camacho MD Primary Care Provider [phone] Encounter Details Date Type Department Care Team (Late st Contact Info) Description 07/06/2006 Orders Only [facility] Internal Medicine [address] [address] Arsh Camacho MD [address] [place] [address] [address] [place] [address] Social History Tobacco Use Types Packs/Day Years Used Date Smoking Tobacco: Never Assessed Sex and Gender Information Value Date Recorded Sex Assigned at Male 01/26/2024 7:42 PM CDT Legal Sex Male 2:41 AM DOUBLE CORNER CUTTER Gender Identity Male 01/26/2024 7:42 PM CDT Sexual Orientation Straight 01/26/2024 7: 42 PM CDT documented as of this encounter Plan of Treatment Upcoming Encounters Date Type Department Care Team (Late st Contact Info) Description 11/30/2024 3:20 PM CDT Office Visit [facility] Primary Care [address] [place] [address] Arsh Camacho MD [address] [place] [address] [address] [place] [address] 01/09/2025 1:00 PM CDT Office Visit [facility] HEART AND VASCULAR EP AT [facility] [address] [facility] [address] [place] [address] Robert Falcon MD [address] [facility] [address] [place] [address] 04/02/2025 1:20 PM DOUBLE CORNER CUTTER Office Visit [facility] Primary Care [address] [place] [address] Arsh Camacho MD [address] [place] [address] [address] [place] [address] documented as of this encounter Visit Diagnoses Not on filedocumented in this encounter Care Teams Warehouser Relationship Specialty Start Date End Date Arsh Camacho MD PCP - General 07/27/07 documented as of this encounter
--- OUTSIDE RECORDS SUMMARY | 2024-11-24 20:11 | XMS_ITS | Encounter Summary ---
Author Organization [facility] Address [address] [place] [address] Care Team Providers Care Plaster Applicator Name Role Phone Arsh Camacho MD Primary Care Provider [phone] Encounter Details Date Type Department Care Team (Late st Contact Info) Description 12/31/2005 Orders Only [facility] Internal Medicine [address] [address] Arsh Camacho MD [address] [place] [address] Social History Tobacco Use Types Packs/Day Years Used Date Smoking Tobacco: Never Assessed Sex and Gender Information Value Date Recorded Sex Assigned at Male 01/26/2024 7:42 PM CDT Legal Sex Male 2:41 AM RESIDUE FURNACE OPERATOR Gender Identity Male 01/26/2024 7:42 PM [...] 5/6 mg qod. please call to Shad [phone] 01/01/06 9:50a Called into Pharmacy. Electronically Signed by: Richelle Carreon on Wednesday, January 01, 2006 documented in this encounter Plan of Treatment Upcoming Encounters Date Type Department Care Team (Late st Contact Info) Description 11/30/2024 3:20 PM CDT Office Visit [address] [place] [address] [place] [address] Arsh Camacho MD [address] [place] [address] [address] [place] [address] 01/09/2025 1:00 PM CDT Office Visit [facility] HEART AND VASCULAR EP AT [place] [address] [facility] [address] [place] [address] Robert Falcon MD [facility] [address] [facility] [address] [place] [address] 04/02/2025 1:20 PM RESIDUE FURNACE OPERATOR Office Visit [address] [place] [address] [place] [address] Arsh Camacho MD [address] [place] [address] [address] [place] [address] documented as of this encounter Visit Diagnoses Not on filedocumented in this encounter Care Teams Plaster Applicator Relationship Specialty Start Date End Date Arsh Camacho MD PCP - General 07/27/07 documented as of this encounter
--- OUTSIDE RECORDS SUMMARY | 2024-11-24 20:11 | XMS_ITS | Encounter Summary ---
Author Organization [facility] Address [address] [place] [address] Care Team Providers Care Mechanical Maintenance Foreman Name Role Phone Arsh Camacho MD Primary Care Provider [phone] Encounter Details Date Type Department Care Team (Late Contact Info) Description 08/05/2005 Outpatient Historical [facility] Internal Medicine [address] [address] Arsh Camacho MD [address] [place] [address] Social History Tobacco Use Types Packs/Day Years Used Date Smoking Tobacco: Never Assessed Sex and Gender Information Value Date Recorded Sex Assigned at Male 01/26/2024 7:42 PM CDT Legal Sex Male 2:41 AM DIRECTOR OF STUDENT FINANCIAL SERVICES Gender Identity Male 01/26/2024 7:42 PM CDT [...] Body Mass Index 35.5 04/10/2003 11:45 AM DIRECTOR OF STUDENT FINANCIAL SERVICES documented in this encounter Plan of Treatment Upcoming Encounters Date Type Department Care Team (Late Contact Info) Description 11/30/2024 3:20 PM CDT Office Visit [address] [place] [address] Arsh Camacho MD [address] [place] [address] [address] [place] [address] 01/09/2025 1:00 PM CDT Office Visit [facility] HEART AND VASCULAR EP AT [address] [place] [address] Robert Falcon MD [address] [place] [address] [address] [place] [address] 04/02/2025 1:20 PM DIRECTOR OF STUDENT FINANCIAL SERVICES Office Visit [address] [place] [address] Arsh Camacho MD [address] [place] [address] [address] [place] [address] documented as of this encounter Visit Diagnoses Not on filedocumented in this encounter Care Teams Mechanical Maintenance Foreman Relationship Specialty Start Date End Date Arsh Camacho MD PCP - General 07/27/07 documented as of this encounter
--- OUTSIDE RECORDS SUMMARY | 2024-11-24 20:11 | XMS_ITS | Encounter Summary ---
Author Organization [facility] Address [address] [place] [address] Care Team Providers Care Endocrinology Physician Name Role Phone Arsh Camacho MD Primary Care Provider Encounter Details Date Type Department Care Team (Late st Contact Info) Description 06/08/[address] [facility] Internal Medicine [address] [address] Arsh Camacho MD [address] [place] [address] [address] [place] [address] Social History Tobacco Use Types Packs/Day Years Used Date Smoking Tobacco: Never Assessed Sex and Gender Information Value Date Recorded Sex Assigned at Male 01/26/2024 7:42 PM CDT Legal Sex Male 2:41 AM SCHOOL AGE PROGRAM TEACHER Gender Identity Male 01/26/2024 7:42 PM CDT Sexual Orientation Straight 01/26/2024 7: 42 PM CDT documented as of this encounter Plan of Treatment Upcoming Encounters Date Type Department Care Team (Late st Contact Info) Description 11/30/2024 3:20 PM CDT Office Visit [facility] Primary Care [address] [place] [address] Arsh Camacho MD [address] [place] [address] [address] [place] [address] 01/09/2025 1:00 PM CDT Office Visit [facility] HEART AND VASCULAR EP AT [facility] [address] [facility] [address] [place] [address] Robert Falcon MD [address] [facility] [address] [place] [address] 04/02/2025 1:20 PM SCHOOL AGE PROGRAM TEACHER Office Visit [facility] Primary Care [address] [place] [address] Arsh Camacho MD [address] [place] [address] [address] [place] [address] documented as of this encounter Visit Diagnoses Not on filedocumented in this encounter Care Teams Endocrinology Physician Relationship Specialty Start Date End Date Arsh Camacho MD PCP - General 07/27/07 documented as of this encounter
--- OUTSIDE RECORDS SUMMARY | 2024-11-24 20:11 | XMS_ITS | Encounter Summary ---
Author Organization [facility] Address [address] [place] [address] Care Team Providers Care Cycle Counter Name Role Phone Arsh Camacho MD Primary Care Provider Encounter Details Date Type Department Care Team (Late st Contact Info) Description 12/22/2006 Orders Only [facility] Internal Medicine [address] [address] Arsh Camacho MD [address] [place] [address] [address] [place] [address] Social History Tobacco Use Types Packs/Day Years Used Date Smoking Tobacco: Never Assessed Sex and Gender Information Value Date Recorded Sex Assigned at Male 01/26/2024 7:42 PM CDT Legal Sex Male 2:41 AM WEIGHT CLERK Gender Identity Male 01/26/2024 7:42 PM CDT Sexual Orientation Straight 01/26/2024 7: 42 PM CDT documented as of this encounter Plan of Treatment Upcoming Encounters Date Type Department Care Team (Late st Contact Info) Description 11/30/2024 3:20 PM CDT Office Visit [facility] Primary Care [address] [place] [address] Arsh Camacho MD [address] [place] [address] [address] [place] [address] 01/09/2025 1:00 PM CDT Office Visit [facility] HEART AND VASCULAR EP AT [facility] [address] [facility] [address] [place] [address] Robert Falcon MD [address] [facility] [address] [place] [address] 04/02/2025 1:20 PM WEIGHT CLERK Office Visit [facility] Primary Care [address] [place] [address] Arsh Camacho MD [address] [place] [address] [address] [place] [address] documented as of this encounter Visit Diagnoses Not on filedocumented in this encounter Care Teams Cycle Counter Relationship Specialty Start Date End Date Arsh Camacho MD PCP - General 07/27/07 documented as of this encounter
--- OUTSIDE RECORDS SUMMARY | 2024-11-24 20:11 | XMS_ITS | Encounter Summary ---
Author Organization [facility] Address [address] [place] [address] Care Team Providers Care Sales Assoc Name Role Phone Arsh Camacho MD Primary Care Provider Encounter Details Date Type Department Care Team (Late st Contact Info) Description 09/15/2005 Orders Only [facility] Internal Medicine [address] [address] Arsh Camacho MD [address] [place] [address] [address] [place] [address] Social History Tobacco Use Types Packs/Day Years Used Date Smoking Tobacco: Never Assessed Sex and Gender Information Value Date Recorded Sex Assigned at Male 01/26/2024 7:42 PM CDT Legal Sex Male 2:41 AM OFFICE ADMINISTRATION Gender Identity Male 01/26/2024 7:42 PM CDT Sexual Orientation Straight 01/26/2024 7: 42 PM CDT documented as of this encounter Plan of Treatment Upcoming Encounters Date Type Department Care Team (Late st Contact Info) Description 11/30/2024 3:20 PM CDT Office Visit [facility] Primary Care [address] [place] [address] Arsh Camacho MD [address] [place] [address] [address] [place] [address] 01/09/2025 1:00 PM CDT [facility] [address] [facility] [address] [place] [address] Robert Falcon MD [address] [facility] [address] [place] [address] 04/02/2025 1:20 PM OFFICE ADMINISTRATION Office Visit [facility] Primary Care [address] [place] [address] Arsh Camacho MD [address] [place] [address] [address] [place] [address] documented as of this encounter Visit Diagnoses Not on filedocumented in this encounter Care Teams Sales Assoc Relationship Specialty Start Date End Date Arsh Camacho MD PCP - General 07/27/07 documented as of this encounter
--- OUTSIDE RECORDS SUMMARY | 2024-11-24 20:11 | XMS_ITS | Encounter Summary ---
Author Organization [facility] Address [address] [place] [address] Care Team Providers Care Electrotyper Name Role Phone Arsh Camacho MD Primary Care Provider [phone] Encounter Details Date Type Department Care Team (Late st Contact Info) Description 11/10/2005 Orders Only [facility] Internal Medicine [address] [address] Arsh Camacho MD [address] [place] [address] Social History Tobacco Use Types Packs/Day Years Used Date Smoking Tobacco: Never Assessed Sex and Gender Information Value Date Recorded Sex Assigned at Male 01/26/2024 7:42 PM CDT Legal Sex Male 2:41 AM MATTING PRESS TENDER Gender Identity Male 01/26/2024 7:42 PM [...] 427.31-ATRIAL FIBRILLATION stable LAB ORDERS: Order number: [id number] Test Ordered: COMPREHENSIVE METABOLIC PANEL W/ GLOMERULAR FILTRATION RATE, ESTIMATED (EGFR) 19740 Order number: [id number] Test Ordered: LIPID PANEL 7600 Order number: [id number] Test Ordered: TSH 899 Order number: [id number] Test Ordered: PT WITH INR 8847 RETURN VISIT : Patient instructed to return in 3 months. Electronically Signed by: Arsh Camacho MD on Thursday, November 10, 2005 documented in this encounter Plan of Treatment Upcoming Encounters Date Type Department Care Team (Late st Contact Info) Description 11/30/2024 3:20 PM CDT Office Visit [facility] Primary [place] [address] [place] [phone] Arsh Camacho MD [address] [place] [address] [address] [place] [phone] 01/09/2025 1:00 PM CDT Office Visit [facility] HEART AND VASCULAR EP AT [address] [place] [address] Robert Falcon MD [address] [place] [address] [place] [address] 04/02/2025 1:20 PM MATTING PRESS TENDER Office Visit [facility] Primary Care [address] [place] [address] Arsh Camacho MD [address] [place] [address] [address] [place] [address] documented as of this encounter Visit Diagnoses Not on filedocumented in this encounter Care Teams Electrotyper Relationship Specialty Start Date End Date Arsh Camacho MD PCP - General 07/27/07 documented as of this encounter
--- OUTSIDE RECORDS SUMMARY | 2024-11-24 20:11 | XMS_ITS | Encounter Summary ---
Author Organization [facility] Address [address] [place] [address] Care Team Providers Care Retail Service Specialist Name Role Phone Arsh Camacho MD Primary Care Provider [phone] Encounter Details Date Type Department Care Team (Late Contact Info) Description 11/10/2005 Outpatient Historical [facility] Internal Medicine [address] [address] Arsh Camacho MD [address] [place] [address] Social History Tobacco Use Types Packs/Day Years Used Date Smoking Tobacco: Never Assessed Sex and Gender Information Value Date Recorded Sex Assigned at Male 01/26/2024 7:42 PM CDT Legal Sex Male 2:41 AM STEERER Gender Identity Male 01/26/2024 7:42 PM CDT [...] Body Mass Index 34.62 04/10/2003 11:45 AM STEERER documented in this encounter Plan of Treatment Upcoming Encounters Date Type Department Care Team (Late Contact Info) Description 11/30/2024 3:20 PM CDT Office Visit [address] [place] [address] Arsh Camacho MD [address] [place] [address] [address] [place] [address] 01/09/2025 1:00 PM CDT Office Visit [facility] HEART AND VASCULAR EP AT [address] [place] [address] Robert Falcon MD [address] [place] [address] 2014 [place] [address] 04/02/2025 1:20 PM STEERER Office Visit [address] [place] [address] Arsh Camacho MD [address] [place] [address] [address] [place] [address] documented as of this encounter Visit Diagnoses Not on filedocumented in this encounter Care Teams Retail Service Specialist Relationship Specialty Start Date End Date Arsh Camacho MD PCP - General 07/27/07 documented as of this encounter
--- OUTSIDE RECORDS SUMMARY | 2024-11-24 20:11 | XMS_ITS | Encounter Summary ---
Author Organization [facility] Address [address] [place] [address] Care Team Providers Care Gis Programmer Name Role Phone Arsh Camacho MD Primary Care Provider [phone] Encounter Details Date Type Department Care Team (Late Contact Info) Description 09/07/2006 Outpatient Historical [facility] Internal Medicine [address] [address] Arsh Camacho MD [address] [place] [address] Social History Tobacco Use Types Packs/Day Years Used Date Smoking Tobacco: Never Assessed Sex and Gender Information Value Date Recorded Sex Assigned at Male 01/26/2024 7:42 PM CDT Legal Sex Male 2:41 AM DICER MACHINE OPERATOR Gender Identity Male 01/26/2024 7:42 PM [...] Body Mass Index 34.75 04/10/2003 11:45 AM DICER MACHINE OPERATOR documented in this encounter Plan of Treatment Upcoming Encounters Date Type Department Care Team (Late Contact Info) Description 11/30/2024 3:20 PM CDT Office Visit [address] [place] [address] Arsh Camacho MD [address] [place] [address] [address] [place] [address] 01/09/2025 1:00 PM CDT Office Visit [facility] HEART AND VASCULAR EP AT [address] [place] [address] Robert Falcon MD [address] [place] [address] 2014 [place] [address] 04/02/2025 1:20 PM DICER MACHINE OPERATOR Office Visit [address] [place] [address] Arsh Camacho MD [address] [place] [address] [address] [place] [address] documented as of this encounter Visit Diagnoses Not on filedocumented in this encounter Care Teams Gis Programmer Relationship Specialty Start Date End Date Arsh Camacho MD PCP - General 07/27/07 documented as of this encounter
--- OUTSIDE RECORDS SUMMARY | 2024-11-24 20:11 | XMS_ITS | Encounter Summary ---
Author Organization [facility] Address [address] [place] [address] Care Team Providers Care Medical Insurance Coding Specialist Name Role Phone Arsh Camacho MD Primary Care Provider [phone] Encounter Details Date Type Department Care Team (Late st Contact Info) Description 01/04/2007 Orders Only [facility] Internal Medicine [address] [address] Arsh Camacho MD [address] [place] [address] Social History Tobacco Use Types Packs/Day Years Used Date Smoking Tobacco: Never Assessed Sex and Gender Information Value Date Recorded Sex Assigned at Male 01/26/2024 7:42 PM CDT Legal Sex Male 2:41 AM ENVIRONMENTAL EDUCATION SPECIALIST Gender Identity Male 01/26/2024 7:42 PM [...] pedal edema, palpitations, and paroxysmal nocturnal dyspnea. V58.61-SENIOR LIVING USE OF ANTICOAGULANT (COUMADIN) recent lab reviewed [...] recheck LAB ORDERS: 3 mo Order number: [id number] Test Ordered: COMPREHENSIVE METABOLIC PANEL & GFR 1112 Order number: [id number] Test Ordered: LIPID PANEL 1078 Order number: [id number] Test Ordered: PT WITH INR 4020 Order number: [id number] Test Ordered: TSH 1720 Order number: [id number] Test Ordered: PSA, TOTAL 1002 272.4-HYPERLIPIDEMIA cont med, enc diet 427.31-ATRIAL FIBRILLATION cont med reassess LAB ORDERS: pt needs new standing order Order number: [id number] Test Ordered: PT WITH INR 4020 Order number: [id number] Test Ordered: INJ-PNEUMOVAX 60464 V58.61-RENDERING EQUIPMENT TENDER USE OF ANTICOAGULANT (COUMADIN) reviewed PREVENTIVE COUNSELING [...] or anti-inflammatory products as well as any doli-qsj-lmhgltf medications containing vitamin K. RETURN VISIT : Patient instructed to return in 3 months. Electronically Signed by: Arsh Camacho MD on Thursday, January 04, 2007 documented in this encounter Plan of Treatment Upcoming Encounters Date Type Department Care Team (Late st Contact Info) Description 11/30/2024 3:20 PM CDT Office Visit [address] [place] [address] [place] [address] Arsh Camacho MD [address] [place] [phone] 01/09/2025 1:00 PM CDT Office Visit [facility] HEART AND VASCULAR EP AT [address] [place] [address] Robert Falcon MD [address] [place] [address] 2014 [place] [address] 04/02/2025 1:20 PM ENVIRONMENTAL EDUCATION SPECIALIST Office Visit [address] [place] [address] [place] [address] Arsh Camacho MD [address] [place] [phone] documented as of this encounter Visit Diagnoses Not on filedocumented in this encounter Care Teams Medical Insurance Coding Specialist Relationship Specialty Start Date End Date Arsh Camacho MD PCP - General 07/27/07 documented as of this encounter
--- OUTSIDE RECORDS SUMMARY | 2024-11-24 20:11 | XMS_ITS | Encounter Summary ---
Author Organization [facility] Address [address] [place] [address] Care Team Providers Care Client Delivery Specialist Name Role Phone Arsh Camacho MD Primary Care Provider Encounter Details Date Type Department Care Team (Late st Contact Info) Description 11/09/2006 Orders Only [facility] Internal Medicine [address] [address] Arsh Camacho MD [address] [place] [address] [address] [place] [address] Social History Tobacco Use Types Packs/Day Years Used Date Smoking Tobacco: Never Assessed Sex and Gender Information Value Date Recorded Sex Assigned at Male 01/26/2024 7:42 PM CDT Legal Sex Male 2:41 AM SHOULDER JOINER Gender Identity Male 01/26/2024 7:42 PM CDT Sexual Orientation Straight 01/26/2024 7: 42 PM CDT documented as of this encounter Plan of Treatment Upcoming Encounters Date Type Department Care Team (Late st Contact Info) Description 11/30/2024 3:20 PM CDT Office Visit [facility] Primary Care [address] [place] [address] Arsh Camacho MD [address] [place] [address] [address] [place] [address] 01/09/2025 1:00 PM CDT Office Visit [facility] HEART AND VASCULAR EP AT [facility] [address] [facility] [address] [place] [address] Robert Falcon MD [address] [facility] [address] [place] [address] 04/02/2025 1:20 PM SHOULDER JOINER Office Visit [facility] Primary Care [address] [place] [address] Arsh Camacho MD [address] [place] [address] [address] [place] [address] documented as of this encounter Visit Diagnoses Not on filedocumented in this encounter Care Teams Client Delivery Specialist Relationship Specialty Start Date End Date Arsh Camacho MD PCP - General 07/27/07 documented as of this encounter
--- OUTSIDE RECORDS SUMMARY | 2024-11-24 20:12 | XMS_ITS | Encounter Summary ---
Author Organization [facility] Address [address] [place] [address] Care Team Providers Care General Merchandise Salesperson Name Role Phone Arsh Camacho MD Primary Care Provider [phone] Encounter Details Date Type Department Care Team (Late Contact Info) Description 08/06/2004 Outpatient Historical [facility] Internal Medicine [address] [address] Arsh Camacho MD [address] [place] [address] Social History Tobacco Use Types Packs/Day Years Used Date Smoking Tobacco: Never Assessed Sex and Gender Information Value Date Recorded Sex Assigned at Male 01/26/2024 7:42 PM CDT Legal Sex Male 2:41 AM CRAPS DEALER Gender Identity Male 01/26/2024 7:42 PM CDT [...] Body Mass Index 34.12 04/10/2003 11:45 AM CRAPS DEALER documented in this encounter Plan of Treatment Upcoming Encounters Date Type Department Care Team (Late Contact Info) Description 11/30/2024 3:20 PM CDT Office Visit [address] [place] [address] Arsh Camacho MD [address] [place] [address] [address] [place] [address] 01/09/2025 1:00 PM CDT Office Visit [facility] HEART AND VASCULAR EP AT [address] [place] [address] Robert Falcon MD [address] [place] [address] 2014 [place] [address] 04/02/2025 1:20 PM CRAPS DEALER Office Visit [address] [place] [address] Arsh Camacho MD [address] [place] [address] [address] [place] [address] documented as of this encounter Visit Diagnoses Not on filedocumented in this encounter Care Teams General Merchandise Salesperson Relationship Specialty Start Date End Date Arsh Camacho MD PCP - General 07/27/07 documented as of this encounter
--- OUTSIDE RECORDS SUMMARY | 2024-11-24 20:12 | XMS_ITS | Encounter Summary ---
Author Organization [facility] Address [address] [place] [address] Care Team Providers Care Block Press Operator Name Role Phone Arsh Camacho MD Primary Care Provider Encounter Details Date Type Department Care Team (Late st Contact Info) Description 05/28/2004 Outpatient Historical [facility]3] Internal Medicine [address] [address] Arsh Camacho MD [address] [place] [address] 102 [place] [address] Social History Tobacco Use Types Packs/Day Years Used Date Smoking Tobacco: Never Assessed Sex and Gender Information Value Date Recorded Sex Assigned at Male 01/26/2024 7:42 PM CDT Legal Sex Male 2:41 AM SYSTEM CONTROLLER Gender Identity Male 01/26/2024 7:42 PM CDT Sexual Orientation Straight 01/26/2024 7: 42 PM CDT documented as of this encounter Plan of Treatment Upcoming Encounters Date Type Department Care Team (Late st Contact Info) Description 11/30/2024 3:20 PM CDT Office Visit [facility]3] Primary Care [address] [place] [address] Arsh Camacho MD [address] [place] [address] [address] [place] [address] 01/09/2025 1:00 PM CDT Office Visit [facility] HEART AND VASCULAR EP AT [facility] [address] [facility] [address] [place] [address] Robert Falcon MD [address] [facility] [address] [place] [address] 04/02/2025 1:20 PM SYSTEM CONTROLLER Office Visit [facility]3] Primary Care [address] [place] [address] Arsh Camacho MD [address] [place] [address] [address] [place] [address] documented as of this encounter Visit Diagnoses Not on filedocumented in this encounter Care Teams Block Press Operator Relationship Specialty Start Date End Date Arsh Camacho MD PCP - General 07/27/07 documented as of this encounter
--- OUTSIDE RECORDS SUMMARY | 2024-11-24 20:12 | XMS_ITS | Encounter Summary ---
Author Organization [facility] Address [address] [place] [address] Care Team Providers Care Shearer Operator Name Role Phone Arsh Camacho MD Primary Care Provider Encounter Details Date Type Department Care Team (Late st Contact Info) Description 05/28/2004 Outpatient Historical [facility] Internal Medicine [address] [address] Arsh Camacho MD [address] [place] [address] 102 [place] [address] Social History Tobacco Use Types Packs/Day Years Used Date Smoking Tobacco: Never Assessed Sex and Gender Information Value Date Recorded Sex Assigned at Male 01/26/2024 7:42 PM CDT Legal Sex Male 2:41 AM BREASTFEEDING PEER COUNSELOR Gender Identity Male 01/26/2024 7:42 PM CDT Sexual Orientation Straight 01/26/2024 7: 42 PM CDT documented as of this encounter Plan of Treatment Upcoming Encounters Date Type Department Care Team (Late st Contact Info) Description 11/30/2024 3:20 PM CDT Office Visit [facility] Primary Care [address] [place] [address] Arsh Camacho MD [address] [place] [address] [address] [place] [address] 01/09/2025 1:00 PM CDT Office Visit [facility] HEART AND VASCULAR EP AT [facility] [address] [facility] [address] [place] [address] Robert Falcon MD [address] [facility] [address] [place] [address] 04/02/2025 1:20 PM BREASTFEEDING PEER COUNSELOR Office Visit [facility] Primary Care [address] [place] [address] Arsh Camacho MD [address] [place] [address] [address] [place] [address] documented as of this encounter Visit Diagnoses Not on filedocumented in this encounter Care Teams Shearer Operator Relationship Specialty Start Date End Date Arsh Camacho MD PCP - General 07/27/07 documented as of this encounter
--- OUTSIDE RECORDS SUMMARY | 2024-11-24 20:12 | XMS_ITS | Encounter Summary ---
Author Organization [facility] Address [address] [place] [address] Care Team Providers Care Aircraft Machinist Name Role Phone Arsh Camacho MD Primary Care Provider [phone] Encounter Details Date Type Department Care Team (Late Contact Info) Description 04/10/2003 Outpatient Historical [facility] Internal Medicine [address] [address] Arsh Camacho MD [address] [place] [address] Social History Tobacco Use Types Packs/Day Years Used Date Smoking Tobacco: Never Assessed Sex and Gender Information Value Date Recorded Sex Assigned at Male 01/26/2024 7:42 PM CDT Legal Sex Male 2:41 AM LIAISON ENGINEER Gender Identity Male 01/26/2024 7:42 PM CDT Sexual Orientation Straight 01/26/2024 7: 42 PM CDT documented as of this encounter Last Filed Vital Signs Vital Sign Reading Time Taken Comments Blood Pressure 122/80 04/10/2003 11:45 AM LIAISON ENGINEER Pulse - - Temperature - - Respiratory Rate - - Oxygen Saturation - - Inhaled Oxygen Concentration - - Weight 127.5 kg (281 lb) 04/10/2003 11:45 AM LIAISON ENGINEER Height 190.5 cm (6' 3) 04/10/2003 11:45 AM LIAISON ENGINEER Body Mass Index 35.12 04/10/2003 11:45 AM LIAISON ENGINEER documented in this encounter Plan of Treatment Upcoming Encounters Date Type Department Care Team (Late Contact Info) Description 11/30/2024 3:20 PM CDT Office Visit [address] [place] [address] Arsh Camacho MD [address] [place] [address] [address] [place] [address] 01/09/2025 1:00 PM CDT Office Visit [facility] HEART AND VASCULAR EP AT [address] [place] [address] Robert Falcon MD [address] [place] [address] [address] [place] [address] 04/02/2025 1:20 PM LIAISON ENGINEER Office Visit [address] [place] [address] Arsh Camacho MD [address] [place] [address] 102 [place] [address] documented as of this encounter Visit Diagnoses Not on filedocumented in this encounter Care Teams Aircraft Machinist Relationship Specialty Start Date End Date Arsh Camacho MD PCP - General 07/27/07 documented as of this encounter
--- OUTSIDE RECORDS SUMMARY | 2024-11-24 20:12 | XMS_ITS | Clinical Summary ---
Author Organization [facility] Address [address] [place] [address] Care Team Providers Care Valve Grinder Name Role Phone Arsh Camacho MD Primary Care Provider [phone] Allergies Active Allergy Reactions Criticality Noted Date [...] be different from the original. Robert Falcon MD-[facility] @ [id number] 09/29/23 964752/3/24 AMW-10/11/2019 Problem Noted Date Diagnosed Date Osteopenia [...] age? 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) use of anticoagulants 2004 Atrial fibrillation [...] Type Department Care Team Description 11/24/[address] [place] [address] Arsh Camacho MD Needs Orders Written; Clinical Consult Before Scheduling 11/22/[address] [place] [address] Arsh Camacho MD Hypothyroidism, unspecified type; Abnormal PSA 11/14/2024 External Device Data STL ABSTRACTION Provider, Abstract 10/11/2024 External Device Data STL ABSTRACTION Provider, Abstract 10/10/2024 External Device Data STL ABSTRACTION Provider, Abstract 10/06/[address] [place] [address] Karla Vora, LOCKSTITCH BACK MAKER 09/26/2024 External Device Data STL ABSTRACTION Provider, Abstract 09/14/2024 [facility] [place] [address] [place] [address] Arsh Camacho MD 09/12/2024 4:00 PM CDT Office Visit [place] [address] [place] [address] Arsh Camacho MD Chronic atrial fibrillation (CMS/HCC) (Primary Dx); Dilated cardiomyopathy (CMS/HCC); Hypothyroidism, unspecified type; Abnormal PSA; Other hyperlipidemia; Vitamin B12 deficiency (non anemic); Vitamin D deficiency; Prediabetes 09/12/2024 Abstract [facility] [address] [address] Arsh Camacho MD 09/05/2024 External Device Data STL ABSTRACTION Provider, Abstract from Last 3 Months Immunizations Immunization Administration Dates Next Due (ADACEL/BOOSTRIX)(10 YR UP) TDAP VACCINE, 0.5ML, IM 11/01/2014 (PFIZER)(12 YR UP) COVID-19 VACCINE - EMERGENCY USE AUTHORIZATION, MRNA, [id number](PF) 30 MCG/0.3 ML IM SUSP 02/03/2022,10/17/2021,07/03/2021,01/16,05/22/2020,05/01/2020 (PNEUMOVAX 23)(50 YRS UP) PN EUMOCOCCAL POLYSACCHARIDE (PPV23) 0.5 ML, IM 01/05/2019,04/12/2013,01/04/2007 (PREVNAR 13)(6 WKS UP) PNEUM OCOCCAL CONJUGATE (PCV13) 0.5 ML, IM 04/26/2014 (PREVNAR 20)(6 WKS UP) PNEUM OCOCCAL CONJUGATE VACCINE 20-VALENT (PCV20), POLYSACCHARIDE [id number] CONJUGATE, ADJUVANT 0.5 ML (PF) IM 12/02/2022 [...] PM CDT Legal Sex Male 2:41 AM BIOMEDICAL ENGINEERING TECHNICIAN Gender Identity Male 01/26/2024 7:42 PM CDT Sexual Orientation Straight 01/26/2024 7: 42 PM CDT Last Filed Vital Signs Vital Sign Reading Time Taken Comments Blood Pressure 131/85 09/12/2024 3:56 PM CDT Pulse 64 09/12/2024 3:56 PM CDT Temperature 36.4 C (97.5 F) 03/31/2023 1:39 PM BIOMEDICAL ENGINEERING TECHNICIAN Respiratory Rate 16 03/31/2023 1:39 PM BIOMEDICAL ENGINEERING TECHNICIAN Oxygen Saturation 98% 09/12/2024 3:56 PM CDT Inhaled Oxygen Concentration - - Weight 119.7 kg (264 lb) 09/12/2024 3:56 PM CDT Height 190.5 cm (6' 3) 09/12/2024 3:56 PM CDT Body Mass Index 33 09/12/2024 3:56 PM CDT Plan of Treatment Upcoming Encounters Date Type Department Care Team (Late st Contact Info) Description 11/30/2024 3:20 PM CDT Office Visit [facility] [address] [place] [address] Arsh Camacho MD [address] [place] [address] [address] [place] [address] 01/09/2025 1:00 PM CDT Office Visit [facility] AND VASCULAR EP AT [place] [address] [address] [facility] [address] [place] [address] Robert Falcon MD [facility] [address] [facility] [address] [place] [address] 04/02/2025 1:20 PM BIOMEDICAL ENGINEERING TECHNICIAN Office Visit [address] [place] [phone] Arsh Camacho MD [address] [place] [address] [address] [place] [address] Health Maintenance Due Date Last Done Comments RSV VACCINE (60+ or ) (1 - 1-dose 75+ series) 01/12/2019 COVID-19 Vaccine (2023-2 5 season) 2023 02/03/2022, 01/16/2022, 10/17/2021, Additional history exists Medicare Ad[place]age ([place]) Preventative Visit/Annual Wellness Visit 03/29/2024 09/29/2023, 03/31/2023, [...] years Discontinued Medical Devices Implanted Type Area Orthotics Technician Device Identifier Shelf Expiration Date Model / Serial / Lot Hemostatic Surgiflo 8ml W/ Thrombin 2994 - [id number] Implanted:Qt y: 1 on 04/26/2021 by Rohan Blas MD at [facility] Hemostatic N/A: Spine Thoracic [employer] [id number] 07/26/2022 2994 / / [id number] Hemostatic Surgiflo 8ml W/ Thrombin 2994 - [id number] Implanted:Qt y: 1 on 04/26/2021 by Rohan Blas MD at [facility] Hemostatic N/A: Spine Thoracic [employer] [id number] 07/26/2022 2994 / / [id number] Hemostatic Surgiflo 8ml W/ Thrombin 2994 - [id number] Implanted:Qt y: 1 on 04/26/2021 by Rohan Blas MD at [facility] Hemostatic N/A: Spine Thoracic [employer] [id number] 07/26/2022 2994 / / [id number] Hemostatic Surgiflo 8ml W/ Thrombin 2993 [id number] Implanted:Qt y: 1 on 04/26/2021 by Rohan Blas MD at [facility] Hemostatic N/A: Spine Thoracic [employer] 05/26/20222993 / / [id number] Hemostatic Surgifoam 1gm 1977 [id number] Implanted:Qt y: 1 on 04/26/2021 by Rohan Blas MD at [facility] Hemostatic N/A: Spine Thoracic [employer] 11/14/20221977 / / [id number] 7.5x50 Screw Implanted:Qt y: 6 on 04/26/2021 by Rohan Blas MD at [facility] Screw N/A: Spine Thoracic [employer] SOFAMOR DANEK [id number] / / Description:load #115, steri lized 04/22/21 8.5x50 Screw Implanted:Qt y: 4 on 04/26/2021 by Rohan Blas MD at [facility] Screw N/A: Spine Thoracic [employer]AM[employer]ANE[employer] [id number] / / Description:load #113, steri lized 04/03/21 Set Screw Implanted:Qt y: 10 on 04/26/2021 by Rohan Blas MD at [facility] Screw N/A: Spine Thoracic [employer]AM[employer] [id number] / / Description:load #110, steri lized 03/17/21 150mm [place]mond Implanted:Qt y: 2 on 04/26/2021 by Rohan Blas MD at [facility] N/A: Spine Thoracic [employer]K [id number] / / Description:load #19, steril ized 03/08/21. All Medtronic spinla hardware was processed on requisition, [id number]. Procedures Procedure Name Priority Date/Time Associated Diagnosis [...] SCREEN, STOOL DNA Routine 04/29/2023 6:30 PM BIOMEDICAL ENGINEERING TECHNICIAN Screening for colon cancer COLONOSCOPY REPORT 01/01/2021 [...] Simran Chakraborty-Robert Diaz EOSINOPHILS 2.0 % [facility] janett Diaz BASOPHILS 0.6 % [facility] janett Diaz Comment: FASTING:YES FASTING: YES Test Performed at: [place] [address] [address] [place] [address] [facility] Vo Blood 09/05/2024 10:5 4 AM CDT 09/05/2024 10:54 AM CDT us Arsh Camacho MD HEMATOLOGY ORDERABLES Final R esult [facility] [phone] [place] [address] [address] [place] [address] * VITAMIN D 25 HYDROXY (09/05/2024 10:54 AM CDT) VITAMIN D, 25 OH, TOTAL 39 30 - 100 ng/mL [facility] Comment: Vitamin D Status 25-OH Vitamin D: Deficiency: <20 ng/mL Insufficiency: 20 - 29 ng/mL Optimal: > or = 30 ng/mL For 25-OH Vitamin D testing on patients on D2-supplementation and patients for whom quantitation of D2 and D3 fractions is required, the QuestAssureD(TM) 25-OH VIT D, (D2,D3), LC/MS/MS is recommended: order code 36377 (patients >2yrs). See Note 1 Note 1 For additional information, please refer to http://education.Billaway/faq/BEQ767 (This link is being provided for informational/ educational purposes only.) FASTING:YES FASTING: YES Test Performed at: [facility] [address] [place] [address] Annmarie Contreras MD Blood 09/05/2024 10:5 4 AM CDT 09/05/2024 10:54 AM CDT Arsh Camacho MD CHEMISTRY ORDERABLES Final Re sult [facility] [phone] [facility] [address] [place] [place] [address] * TSH (09/05/2024 10:54 AM CDT) TSH 1.11 0.40 - 4.50 mIU/L [facility] Comment: FASTING:YES FASTING: YES Test Performed at: [place] [address] [place] [address] Annmarie Contreras Blood 09/05/2024 10:5 4 AM CDT 09/05/2024 10:54 AM CDT Arsh Camacho MD CHEMISTRY ORDERABLES Final Re sult Performing Organization Address City/[facility]/ZIP [facility] Phone Number [facility] [phone] [address] [place] [address] [place] [address] * VITAMIN B12 LEVEL (09/05/2024 10:54 AM CDT) VITAMIN B12 520 200 - 1100 pg/mL [facility] Comment: FASTING:YES FASTING: YES Test Performed at: [facility] [address] [place] [address] Annmarie Contreras MD Blood 09/05/2024 10:5 4 AM CDT 09/05/2024 10:54 AM CDT Arsh Camacho MD CHEMISTRY ORDERABLES Final Re sult Performing Organization Address City/State/ZIP [place] Phone Number [facility] [phone] [facility] [address] [place] [address] * LIPID PANEL (09/05/2024 10:54 AM CDT) CHOLESTEROL 135 <200 mg/dL [facility] HDL 58 > OR = 40 mg/dL [facility] jan[place] TRIGLYCERIDE 60 <150 mg/dL [facility] LDL CALCULATED 63 mg/dL (calc) [facility] Diaz Comment: Reference range: <100 Desirable range <100 mg/dL for primary prevention; <70 mg/dL for patients with CHD or diabetic patients with > or = 2 CHD risk factors. LDL-C is now calculated using the Tereza calculation, which is a validated novel method providing better accuracy than the Friedewald equation in the estimation of LDL-C. Yair SS et al. EMILIE. 2013;310(19): 3956-8465 (http://education.Billaway/faq/GVV338) CHOL/HDL RATIO 2.3 <5.0 (calc) [facility] [place] NON-HDL CHOLESTEROL 77 <130 mg/dL (calc) [facility] Joe Comment: For patients with diabetes plus 1 major ASCVD risk factor, treating to a non-HDL-C goal of <100 mg/dL (LDL-C of <70 mg/dL) is considered a therapeutic option. Test Performed at: [facility] [address] [place] [address] [facility] Blood 09/05/2024 10:5 4 AM CDT 09/05/2024 10:54 AM CDT us Arsh Camacho MD CHEMISTRY ORDERABLES Final Re sult Performing Organization Address City/State/ZIP [facility] Phone Number [facility] [phone] [facility] [address] [place] [address] * (ABNORMAL) COMPREHENSIVE METABOLIC PANEL (09/05/2024 10:54 AM CDT) GLUCOSE 118(H) 65 - 99 mg/dL [facility] janett Diaz Comment: Fasting reference interval For someone without known diabetes, a glucose value between 100 and 125 mg/dL is consistent with prediabetes and should be confirmed with a follow-up test. BUN 14 7 - 25 mg/dL [facility] janett Diaz CREATININE 0.82 0.70 - 1.22 mg/dL [facility] janett Diaz GFR 89 > OR = 60 mL/min/1. 73m2 [facility] BUN/CREAT RATIO SEE NOTE: 6 - 22 (calc) [facility] janett Diaz Comment: Not Reported: BUN and Creatinine are within reference range. SODIUM 142 135 - 146 mmol/L [facility] POTASSIUM 4.3 3.5 - 5.3 mmol/L [facility] CHLORIDE 107 98 - 110 mmol/L [facility] CO2 27 20 - 32 mmol/L [facility] CALCIUM 9.0 8.6 - 10.3 mg/dL [facility] TOTAL PROTEIN 6.6 6.1 - 8.1 g/dL [facility] ALBUMIN 4.2 3.6 - 5.1 g/dL [facility] GLOBULIN 2.4 1.9 - 3.7 g/dL (calc) [facility] ALBUMIN/GLOBULIN RATIO 1.8 1.0 - 2.5 (calc) [facility] BILIRUBIN TOTAL 1.1 0.2 - 1.2 mg/dL [facility] ALKALINE PHOSPHATASE 94 35 - 144 U/L [facility] AST 20 10 - 35 U/L [facility] ALT 17 9 - 46 U/L [facility] Comment: FASTING:YES FASTING: YES Test Performed at: [address] [place] [address] [place] [address] Annmarie Contreras Blood 09/05/2024 10:5 4 AM CDT 09/05/2024 10:54 AM CDT us Arsh Camacho MD CHEMISTRY ORDERABLES Final Re sult [facility] [phone] [place] [address] [place] [address] * COLON CANCER SCREEN, STOOL DNA (04/29/2023 6:30 PM BIOMEDICAL ENGINEERING TECHNICIAN) COLOGUARD RESULT Negative Negative [facility] Comment: NEGATIVE TEST RESULT. A negative Cologuard [...] (Eugenio Torres al, N Engl J Med 2014;370(14):5494-8632) The normal value (reference range) for this assay is negative. COLOGUARD RE-SCREENING RECOMMENDATION: Periodic colorectal cancer screening is an important part of preventive healthcare for asymptomatic individuals at average risk for colorectal cancer. Following a negative Cologuard result, the Citizen Of [place] Cancer Society and U.S. Multi-Society Task Force screening guidelines recommend a Cologuard re-screening interval of 3 years. References: [place] Cancer Society Guideline for Colorectal Cancer Screening: https://www.cancer.org/cancer/fvbzl-xdarcf-deqyzj/geiolgoxa-fvwekvdqv-pvilxfs/ac s-rec ommendations.html.; Natan DK, Den [place], Gilbert RosalesK, Colorectal Cancer Screening: Recommendations for Physicians and Patients from the U.S. Multi-Society Task Force on Colorectal Cancer Screening , Am J Gastroenterology 2017; 112:9156-9160. TEST DESCRIPTION: Composite algorithmic analysis of stool [...] Rowland. et al, N Engl J Med 2014;370(14):8085-5109.) Cologuard may produce a false negative or false positive result (no colorectal cancer or precancerous polyp present at colonoscopy follow up). A negative Cologuard test result does not guarantee the absence of CRC or advanced adenoma (pre-cancer). The current Cologuard screening interval is every 3 years. (Citizen [place] Cancer Society and U.S. Multi-Society Task Force). Cologuard performance data in a 10,000 patient pivotal study using colonoscopy as the reference method can be accessed at the following location: www.Wiz[employer]ocket [employer]/results. Additional description of the Cologuard test process, warnings and precautions can be found at www.MedineogImmunexpressrd.com. Stool STOOL SPECIMEN / Unknown 04/29/2023 6:30 PM BIOMEDICAL ENGINEERING TECHNICIAN 04/30/2023 6:51 PM BIOMEDICAL ENGINEERING TECHNICIAN us Arsh Camacho MD BODY FLUIDS AND STOOLS Edited Result - Final [employer] CLIA # [id number] [address] , [address] [place] [address] * COLONOSCOPY REPORT (01/01/2021 10:06 AM CDT) Narrative Procedure Note Gatito Dunaway MD - 01/01/2021 8:41 AM CDT [facility] Endoscopy Patient Name: Yang Young Procedure [...] of Addenda: [address]; [place] [address] Gatito Dunaway MD GI PROCEDURE ORDERABLES Final [...] Advance Directives For more information, please contact: [phone] Documents on File Type Date Recorded Patient Control Analyst Expl anation Advance Directive POA 09/12/2024 3:49 [...] 6:54 AM 10/17/2015 10:20 AM Care Teams Valve Grinder Relationship Specialty Start Date End Date Arsh Camacho MD PCP - General 07/27/07
--- OUTSIDE RECORDS SUMMARY | 2024-11-24 20:12 | XMS_ITS | Encounter Summary ---
Author Organization [facility] Address [address] [place] [address] Care Team Providers Care Editor Newspaper Name Role Phone Arsh Camacho MD Primary Care Provider [phone] Encounter Details Date Type Department Care Team (Late Contact Info) Description 01/30/2004 Outpatient Historical [facility] Internal Medicine [address] [address] Arsh Camacho MD [address] [place] [address] Social History Tobacco Use Types Packs/Day Years Used Date Smoking Tobacco: Never Assessed Sex and Gender Information Value Date Recorded Sex Assigned at Male 01/26/2024 7:42 PM CDT Legal Sex Male 2:41 AM CENTRAL OFFICE REPAIRER Gender Identity Male 01/26/2024 7:42 PM CDT Sexual Orientation Straight 01/26/2024 7: 42 PM CDT documented as of this encounter Last Filed Vital Signs Vital Sign Reading Time Taken Comments Blood Pressure 124/70 01/30/2004 10:45 AM CENTRAL OFFICE REPAIRER Pulse - - Temperature - - Respiratory Rate - - Oxygen Saturation - - Inhaled Oxygen Concentration - - Weight 123.8 kg (273 lb) 01/30/2004 10:45 AM CENTRAL OFFICE REPAIRER Height - - Body Mass Index 34.12 04/10/2003 11:45 AM CENTRAL OFFICE REPAIRER documented in this encounter Plan of Treatment Upcoming Encounters Date Type Department Care Team (Late Contact Info) Description 11/30/2024 3:20 PM CDT Office Visit [facility] Care [address] [place] [address] Arsh Camacho MD [address] [place] [address] [address] [place] [address] 01/09/2025 1:00 PM CDT Office Visit [facility] HEART AND VASCULAR EP AT [address] [place] [address] Robert Falcon MD [address] [place] [address] [address] [place] [address] 04/02/2025 1:20 PM CENTRAL OFFICE REPAIRER Office Visit [address] [place] [address] Arsh Camacho MD [address] [place] [address] [place] [address] documented as of this encounter Visit Diagnoses Not on filedocumented in this encounter Care Teams Editor Newspaper Relationship Specialty Start Date End Date Arsh Camacho MD PCP - General 07/27/07 documented as of this encounter
--- OUTSIDE RECORDS SUMMARY | 2024-11-24 20:12 | XMS_ITS | Encounter Summary ---
Author Organization [facility] Address [address] [place] [address] Care Team Providers Care Objective C Developer Name Role Phone Arsh Camacho MD Primary Care Provider [phone] Reason for Referral * Eval and Treat (Routine) - Open Specialty Diagnoses / Procedures Referred By Contac t Referred To Contact Diagnoses Leg wound, right, sequela Procedures OK OFFICE/OUTPATIENT ESTABLISHED MOD MDM 30 MIN OK OFFICE/OUTPATIENT NEW MODERATE MDM 45 MINUTES Arsh Camacho MD [address] [place] [address] [address] [place] [address] Phone: tel: fax: [address] [address] Phone: tel: fax: Referral ID Status Reason Start Date Expiration Date Visits Re quested Visits Authorized [id number] Open 11/24/2024 11/24/2025 1 1 Reason for Visit * Reason Comments Needs Orders Written Clinical Consult Before Scheduling Encounter Details Date Type Department Care Team (Late st Contact Info) Description 11/24/2024 Telephone [facility] Primary Care [address] [place] [address] Arsh Camacho MD [address] [place] [address] [address] [place] [address] Needs Orders Written; Clinical Consult [...] PM CDT Legal Sex Male 2:41 AM TRANSLATIONAL SPECIALIST Gender Identity Male 01/26/2024 7:42 PM [...] - 11/24/2024 9:12 AM CDT Copied from [facility] #[id number]. Topic: Symptomatic Care >> Nov 24, 2024 9:09 AM Hattie Swartz wrote: Has this patient seen any provider (current or former) at the requested clinic in the past? Yes, Select the appropriate age range and symptom Patient has symptoms and is seeking care. Caller Name: Maria Ines() Callback Number: [phone] Call Notes: Patient has a cut on his right leg that he has been seen for at Urgent Care but patient's wants Dr. Camacho to take a look as well. Age Range/Symptom: Adult 18+ - Laceration (Cut/Wound) Is there an encounter open? Yes Attempted transfer to [facility] line and no answer, message routed to [facility]ings. * Telephone Encounter - Hattie Spencer - 11/24/2024 9:09 AM CDT Copied from [facility] #[id number]. Topic: CPA Information Request - Order or Referral Request >> Nov 24, 2024 9:06 AM Hattie Swartz wrote: Caller Name: Maria Ines() Patient/Caregiver Callback Number: [phone] Call Notes: Patient was seen at [facility] for a wound on [...] facility? Yes Provider / Facility contact information: [facility] Phone- [phone] Date of Service: N/A documented in this encounter Plan of Treatment Upcoming Encounters Date Type Department Care Team (Late st Contact Info) Description 11/30/2024 3:20 PM CDT Office Visit [facility] Primary Care [place] [address] [place] [address] Arsh Camacho MD [address] [place] [address] [address] [place] [address] 01/09/2025 1:00 PM CDT Office Visit [facility] HEART AND [facility] EP AT [facility] [employer] [facility] [address] [facility] [address] [place] [address] Robert Falcon MD [address] [facility] [address] [place] [address] 04/02/2025 1:20 PM TRANSLATIONAL SPECIALIST Office Visit [facility] Primary Care [address] [place] [address] Arsh Camacho MD [address] [place] [address] [address] [place] [address] Scheduled Referrals Name Type Priority Associated Diagnoses Orde r Schedule AMB REFERRAL TO WOUND CLINIC Outpatient Referral Routine Leg wound, right, sequela Ordered: 11/24/2024 documented as of this encounter Visit Diagnoses Diagnosis Leg wound, right, sequela- Primary documented in this encounter Care Teams Objective C Developer Relationship Specialty Start Date End Date Arsh Camacho MD PCP - General 07/27/07 documented as of this encounter
[2024-11-24 21:40] VITALS: BP 121/83; PULSE 73; RESP 14; TEMP 36.8; O2SAT 99
== END 2024-11-24 21:20 | disposition home or self-care (01) ==
PROVIDERS: Emergency Provider Emergency Medicine; PCP Internal Medicine
DX: S81.811A Laceration without foreign body, right lower leg, initial encounter (principal); L08.9 Local infection of the skin and subcutaneous tissue, unspecified; I48.91 Unspecified atrial fibrillation; E78.5 Hyperlipidemia, unspecified; E03.9 Hypothyroidism, unspecified; N40.0 Benign prostatic hyperplasia without lower urinary tract symptoms; R73.03 Prediabetes; Z98.1 Arthrodesis status; Z85.820 Personal history of malignant melanoma of skin; Z87.891 Personal history of nicotine dependence; Z79.01 Long term (current) use of anticoagulants; W22.03XA Walked into furniture, initial encounter
CPT/HCPCS: 99282

== ENCOUNTER 2025-01-31 07:11 | Outpatient (RCR) | payer MEDICARE, SELFPAY ==
[2024-12-05 12:59] VITALS: BMI 31.0
--- NOTE | 2024-12-05 13:11 | WNDPHOTO ---
PHOTO ONLY - See Nursing Notes and/ or assessments for documentation.
== END 2025-03-05 23:59 | disposition home or self-care (01) ==
LOC: ANHWOC 07:11
PROVIDERS: PCP Internal Medicine; Visit Provider Internal Medicine
DX: L08.9 Local infection of the skin and subcutaneous tissue, unspecified (principal); S81.811S Laceration without foreign body, right lower leg, sequela; W22.03XS Walked into furniture, sequela
CPT/HCPCS: 99212; 99213; 99214; 99215; G0463